=== PATIENT | male | born 1945 | race Caucasian/White ===

== ENCOUNTER 2022-04-14 19:08 | Emergency (ER) | payer OTHER ==
[~2022-04-14] VITALS: Ht 172.7 cm; Wt 81.0 kg
[2022-04-14 20:26] LABS: Basophils # (auto) 0.1 10 ^3/uL (0-0.2); Basophils % (auto) 1.3 % (0.0-2.0); Eosinophils # (auto) 0.2 10 ^3/uL (0-0.8); Eosinophils % (auto) 2.4 % (0.0-7.0); Hematocrit 47.8 % (41.0-53.0); Hemoglobin 16.1 g/dL (13.5-17.5); Lymphocytes # (auto) 0.9 10 ^3/uL (0.4-5.4); Lymphocytes % (auto) 11.6 % (10.0-50.0); Mean Corpuscular Hemoglobin 29.6 pg (28.0-32.0); Mean Corpuscular Hgb Conc. 33.6 g/dL (32.0-36.0); Mean Corpuscular Volume 88.1 fL (80.0-100.0); Monocytes # (auto) 0.6 10 ^3/uL (0-1.3); Monocytes % (auto) 7.6 % (0.0-12.0); Neutrophils # (auto) 5.7 10 ^3/uL (1.6-8.6); Neutrophils % (auto) 77.1 % (37.0-80.0); Nucleated Red Blood Cells % 0.1 %; Red Blood Cells 5.43 10^6/uL (4.5-5.90); Red Cell Distribution Width 14.8 % (11.8-14.3); White Blood Cell 7.4 10^3/uL (4.4-10.8)
[2022-04-14 20:53] LABS: Calcium 8.8 mg/dL (8.5-10.1); Magnesium 2.2 mg/dL (1.6-2.6); Potassium 3.5 mmol/L (3.5-5.1)
[2022-04-14 20:57] LABS: BUN/Creatinine Ratio 10.2; Bilirubin, Total 0.8 mg/dL (0.2-1.0); Total Protein 7.5 g/dL (6.4-8.2)
[2022-04-14] MEDS ORDERED: ASPirin 81 mg TAB PO ONE (23:15)
[2022-04-14] MEDS ORDERED: ONDANSETRON HCL 4 MG/2 ML VIAL IV ONE (23:15)
[2022-04-14] MEDS ORDERED: ACETAMINOPHEN 325 MG TAB PO ONE (23:15)
[2022-04-14 23:38] VITALS: BP 130/92
[2022-04-14 23:52] LABS: Urine Bacteria FEW /hpf (None Seen); Urine Blood Negative /uL (Negative); Urine Specific Gravity 1.008 (1.001-1.035); Urine WBC 1 /hpf (0 - 3)
== END 2022-04-15 01:38 | disposition short-term general hospital (02) ==
LOC: ER 19:08 → EDBD 19:08 → ER 04-15 01:38
DX: R55 Syncope and collapse (principal); R07.89 Other chest pain; I44.0 Atrioventricular block, first degree; I10 Essential (primary) hypertension; Z20.822 Contact with and (suspected) exposure to COVID-19
CPT/HCPCS: 36415; 71045; 80053; 81001; 83735; 83880; 84484; 85025; 85379; 87426; 93005; 96374; 99285; J2405

== ENCOUNTER 2024-05-13 08:56 | Inpatient (IN) | payer OTHER ==
[~2024-05-13] VITALS: Ht 172.7 cm; Wt 76.6 kg
[2024-05-13] VITALS (13 sets, daily range): BP systolic 100–122; BP diastolic 61–73; PULSE 108–118; RESP 18–25; TEMP 79.4–98.7; O2SAT 98–99
--- NOTE | 2024-05-13 09:18 | ED.PDOC ---
History of Present Illness HPI Comments This 78-year-old male presents emergency room after being noted to be anemic on his labs. Labs were drawn yesterday. Patient endorses starting immunotherapy on May 07 for melanoma. On May 10 the patient felt unwell and was transferred to [facility]. He was diagnosed with pneumonia, started on IV antibiotics, and subsequently discharged back to his facility. The general labs S2 which showed that he was anemic. They were concerned and sent him here. Today, he states he feels well. He has no complaints to the headaches and vision changes, chest pain or shortness of breath. Patient, however, states he has become deconditioned and has difficulty walking without assistance. Denies this being a new occurrence. He has no other signs or symptoms. No other palliative or provocative factor. No modifying factors. No radiation of symptoms. Denies pain. Chief Complaint: Abnormal LAB's Time Seen by MD: 09:00 Primary Care Provider: LARRY Allergies: Coded Allergies: Acetaminophen (Verified Allergy, Unknown, 04/15/22) Hydrocodone (Verified Allergy, Unknown, 04/15/22) Mode of Arrival: EMS Past Medical History PAST MEDICAL HISTORY: Cancer Family History Family History: Reviewed,noncontributory to illness Social History Smoker: Non-Smoker Alcohol: Denies ETOH Use Drugs: Denies Drug Use Lives In: Home Constitutional: reports: weakness; denies: chills, diaphoresis, fatigue, fever, malaise, sweats, others EENTM: denies: blurred vision, double vision, ear bleeding, ear discharge, ear drainage, ear pain, ear ringing, eye pain, eye redness, hearing loss, mouth pain, mouth swelling, nasal discharge, nose bleeding, nose congestion, nose pain, photophobia, tearing, throat pain, throat swelling, voice changes, others Respiratory: denies: cough, hemoptysis, orthopnea, SOB at rest, shortness of breath, SOB with excertion, stridor, wheezing, others Cardiovascular: denies: chest pain, dizzy spells, diaphoresis, Dyspnea on exertion, edema, irregular heart beat, left arm pain, lightheadedness, palpitations, PND, syncope, others Gastrointestinal: denies: abdomen distended, abdominal pain, blood streaked bowels, constipated, diarrhea, dysphagia, difficulty swallowing, hematemesis, melena, nausea, poor appetite, poor fluid intake, rectal bleeding, rectal pain, vomiting, others Genitourinary: denies: burning, dysuria, flank pain, frequency, hematuria, incontinence, penile discharge, penile sore, pain, testicle pain, testicle swelling, urgency, others Neurological: denies: dizziness, fainting, headache, numbness, paresthesia, pre-existing deficit, right sided numbness, right sided weakness, seizure, speech problems, tingling, tremors, weakness, others Musculoskeletal: denies: back pain, gout, joint pain, joint swelling, muscle pain, muscle stiffness, neck pain, others Physical Exam General Appearance: No Apparent Distress, Normal HEENT: Normal ENT Inspection, Pharynx Normal, TMs Normal Neck: Full Range of Motion, Normal, Normal Inspection Respiratory: Chest Non-Tender, Lungs Clear, No Accessory Muscle Use, No Respiratory Distress, Normal Breath Sounds Cardiovascular: No Edema, No JVD, No Murmur, No Gallop, Normal Peripheral Pulses, Regular Rate/Rhythm Breast Exam: Deferred Gastrointestinal: No Organomegaly, Non Tender, No Pulsatile Mass, Normal Bowel Sounds, Soft Genitalia: Deferred Pelvic: Deferred Rectal: Deferred Extremities: No calf tenderness, Normal capillary refill, Normal inspection, Normal range of motion, Non-tender, No pedal edema Neurologic: Alert, mail machine operator II-XII nml as Tested, No Motor Deficits, Normal Affect, Normal Mood, No Sensory Deficits Cerebellar Function: Normal Reflexes: NOT DONE Skin: Dry, Normal Color, Warm Lymphatic: NOT DONE Was a procedure done? Was a procedure done?: No Differential Dx Considerations may include: sepsis, pna, pancytopenia, anemia, UTI X-Ray, Labs, Meds, VS Vital Signs Date Time Temp Pulse Resp B/P (MAP) Pulse Ox O2 Delivery O2 Flow Rate FiO2 05/13/24 09:17 117 05/13/24 09:15 118 22 98 Nasal Cannula* 2 28 05/13/24 09:15 118 22 125/61 (82) 98 05/13/24 09:08 115 05/13/24 09:00 98.0 111 25 122/71 (88) 99 Lab Test 05/13/24 10:00 05/13/24 09:35 Range/Units Urine Color Pending Urine Clarity Pending Urine pH Pending Urine Specific [place] Pending Urine Protein Pending Urine Ketones Pending Urine Blood Pending Urine Nitrite Pending Urine Bilirubin Pending Urine Urobilinogen Pending Urine Leukocyte Esterase Pending Urine RBC Pending Urine WBC Pending Urine Squamous Epithelial Cells Pending Urine Bacteria Pending Urine Glucose Pending White Blood Count 2.9 L 4.4-10.8 10^3/uL Red Blood Count 2.34 L 4.5-5.90 10^6/uL Hemoglobin 7.0 *L 13.5-17.5 g/dL Hematocrit 22.7 L 41.0-53.0 % Mean Corpuscular Volume 96.9 80.0-100.0 fL Mean Corpuscular Hemoglobin 29.8 28.0-32.0 pg Mean Corpuscular Hemoglobin Concent 30.8 L 32.0-36.0 g/dL Red Cell Distribution Width 18.1 H 11.8-14.3 % Platelet Count 41 L 140-450 10^3/uL Mean Platelet Volume 8.8 6.9-10.8 fL Neutrophils (%) (Auto) 37.0-80.0 % Lymphocytes (%) (Auto) 10.0-50.0 % Monocytes (%) (Auto) 0.0-12.0 % Basophils (%) (Auto) 0.0-2.0 % Neutrophils # (Auto) 1.6-8.6 10 ^3/uL Lymphocytes # (Auto) 0.4-5.4 10 ^3/uL Monocytes # (Auto) 0-1.3 10 ^3/uL Differential Total Cells Counted Pending Neutrophils % (Manual) Pending Band Neutrophils % (Manual) Pending Lymphocytes % (Manual) Pending Monocytes % (Manual) Pending Eosinophils % (Manual) Pending Basophils % (Manual) Pending Metamyelocytes % (manual) Pending Myelocytes % (Manual) Pending Promyelocytes % (Manual) Pending Blast Cells % (Manual) Pending Reactive Lymphocytes Pending Platelet Estimate Pending Prothrombin Time 11.0 9.3-11.8 sec Prothrombin Time INR 1.04 0.9-1.15 Activated Partial Thromboplast Time 28.0 24.5-34.5 SEC Sodium Level Pending Potassium Level Pending Chloride Level Pending Carbon Dioxide Level Pending Anion Gap Pending Blood Urea Nitrogen Pending Creatinine Pending Glomerular Filtration Rate Calc Pending BUN/Creatinine Ratio Pending Serum Glucose Pending Calcium Level Pending Total Bilirubin Pending Aspartate Amino Transferase (AST) Pending Alanine Aminotransferase (ALT) Pending Alkaline Phosphatase Pending Total Protein Pending Albumin Pending X-Ray, Labs, Meds, VS Comment This 78-year-old male presents to the ER secondary to abnormal labs. Here, he was noted to be pancytopenic with a white count of 2.9, hemoglobin 7, platelet count of 41. He an extra dose completed it shows cardiomegaly, pulmonary vascular congestion, and possible pneumonia. The patient was typed and crossed for 2 units here. He is a [facility] patient. At 10:37 a.m. we reached out to [place]. I spoke with Dr. Root at [facility] at [phone] Time of 1ST Reevaluation: 10:37 Reevaluation 1ST: Unchanged Patient Education/Counseling: Diagnosis, Treatment, Prognosis Family Education/Counseling: No Family Present Sepsis Sepsis Reasesment Focused Exam Sepsis focused exam: focus exam completed Departure 1 Departure Time of Disposition: 10:59 Impression: Primary Impression: Pancytopenia Additional Impression: CHF (congestive heart failure) Disposition: [facility] ([place], [place]) Admit to: Tele Condition: Good Critical Care Note Critical Care Time?: No Stability Stability form required: No Heart Score Heart Score: Heart Score Response (Comments) Value History N/A 0 EKG N/A 0 Age N/A 0 Risk Factors N/A 0 Troponin N/A 0 Total 0 LENA PASTOR May 13, 2024 09:18
[2024-05-13 10:25] LABS: Hematocrit 22.7 % (41.0-53.0); Mean Corpuscular Hemoglobin 29.8 pg (28.0-32.0); Mean Corpuscular Hgb Conc. 30.8 g/dL (32.0-36.0); Mean Corpuscular Volume 96.9 fL (80.0-100.0); Platelet Count (auto) 41 10^3/uL (140-450); Red Blood Cells 2.34 10^6/uL (4.5-5.90); Red Cell Distribution Width 18.1 % (11.8-14.3); White Blood Cell 2.9 10^3/uL (4.4-10.8)
--- NOTE | 2024-05-13 10:26 | DVH ---
EXAM: XY CHEST XRAY 1 VIEW HISTORY: cough COMPARISON: CHEST PORTABLE on DOS: 04/14/22 FINDINGS: LINES AND TUBES: None. CARDIOMEDIASTINAL: The heart is enlarged. The pulmonary vasculature is prominent. Atherosclerotic ca lcification of the aortic arch noted. PULMONARY: Mild interstitial opacities . The bilateral costophrenic angles are clear. There is no p neumothorax. noted bilaterally BONES/SOFT TISSUES: No acute abnormality is noted. IMPRESSION: 1. Moderate cardiomegaly, pulmonary venous congestion and bilateral interstitial opacities may repres ent edema, chronic interstitial lung disease or atypical pneumonia. Recommend clinical and biochemica l correlation.
[2024-05-13 10:31] LABS: Band Neutrophils % (manual) 0; Basophils % (manual) 0 (0.0-2.0); Blast Cells 0; Eosinophils % (manual) 0 (0-7); Metamyelocytes % 0; Monocytes % (manual) 0 (0-12); Myelocytes % 0; Promyelocytes % 0; Reactive Lymphocytes 0
[2024-05-13 10:49] LABS: INR 1.04 (0.9-1.15)
[2024-05-13 10:54] LABS: Alanine Aminotransferase 17 U/L (7-40); Albumin 3.4 g/dL (3.2-4.8); Alkaline Phosphatase 57 U/L (46-116); Anion Gap 9 (5-15); Aspartate Aminotransferase 26 U/L (13-40); BUN/Creatinine Ratio 11.8 (10.0-20.0); Blood Urea Nitrogen 9 mg/dL (9-23); Calcium 8.5 mg/dL (8.7-10.4); Carbon Dioxide 23 mmol/L (20-31); Chloride 106 mmol/L (98-107); Glucose 127 mg/dL (74-106); Potassium 3.4 mmol/L (3.5-5.1); Sodium 138 mmol/L (136-145)
[2024-05-13 10:55] LABS: Bilirubin, Total 2.3 mg/dL (0.2-1.0); Total Protein 5.6 g/dL (5.7-8.2)
[2024-05-13 11:05] LABS: Urine Bacteria FEW /hpf (None Seen); Urine Blood 1+ /uL (Negative); Urine Clarity Clear (Clear); Urine Color Colorless (Yellow); Urine Protein, UAD Negative (Negative); Urine Specific Gravity 1.003 (1.001-1.035); Urine Urobilinogen Normal (Negative); Urine WBC 1 /hpf (0 - 3); Urine pH 6.5 (5.0-9.0)
[2024-05-13] MEDS ORDERED: HYDROcodone-ACET 5/325MG TAB PO PRN (11:45)
[2024-05-13] MEDS ORDERED: FUROSEMIDE 40 MG TAB PO SCH (11:45)
[2024-05-13] MEDS ORDERED: ACETAMINOPHEN 325 MG TAB PO PRN (11:45)
[2024-05-13] MEDS ORDERED: HYDROmorphone HCL 2 MG/ML VL/or syr IV PRN (11:45)
[2024-05-13] MEDS ORDERED: ONDANSETRON HCL 4 MG/2 ML VIAL IV PRN (11:45)
--- NOTE | 2024-05-13 11:56 | DVHHP2 ---
Admitting Diagnosis: Abnormal lab History of Present Illness This 78-year-old male presents emergency room after being noted to be anemic on his labs. Labs were drawn yesterday. Patient endorses starting immunotherapy on May 07 for melanoma. On May 10 the patient felt unwell and was transferred to [facility]. He was diagnosed with pneumonia, started on IV antibiotics, and subsequently discharged back to his facility. The general labs S2 which showed that he was anemic. They were concerned and sent him here. Today, he states he feels well. He has no complaints to the headaches and vision changes, chest pain or shortness of breath. Patient, however, states he has become deconditioned and has difficulty walking without assistance. Denies this being a new occurrence. He has no other signs or symptoms. No other palliative or provocative factor. No modifying factors. No radiation of symptoms. Denies pain. PAST MEDICAL HISTORY: Cancer Family History Family History: Reviewed,noncontributory to illness Social History Smoker: Non-Smoker Alcohol: Denies ETOH Use Drugs: Denies Drug Use Lives In: Home Allergies: Coded Allergies: Acetaminophen (Verified Allergy, Unknown, 04/15/22) Hydrocodone (Verified Allergy, Unknown, 04/15/22) Current Medications Current Medications Medications (Trade) Dose Ordered Sig/Sarah Route PRN Reason Start Time Stop Time Status Last Admin Sodium Chloride (Saline Lock Ns) 10 ml Q8HR IV 05/13/24 14:00 Acetaminophen (Tylenol Tablet) 650 mg Q6HP PRN PO PAIN SCALE 1-3 OR TEMP>100.4 05/13/24 11:45 UNV Acetaminophen/ Hydrocodone Bitart ([place] 5/325MG Tab) 1 tab Q4HP PRN PO MODERATE PAIN (4-6 PAIN SCALE) 05/13/24 11:45 UNV Hydromorphone HCl (Dilaudid Injection) 0.5 mg Q4HP PRN IV SEVERE PAIN (7-10 PAIN SCALE) 05/13/24 11:45 UNV Ondansetron HCl (Zofran) 4 mg Q4HP PRN IV NAUSEA / VOMITING 05/13/24 11:45 Furosemide (Lasix Tablet) 40 mg DAILY PO 05/13/24 11:45 05/13/24 11:58 DC Ferrous Sulfate 325 mg DAILY PO 05/13/24 11:45 Pregabalin (Lyrica Capsule) 50 mg DAILY PO 05/13/24 11:45 Furosemide (Lasix Injection) 40 mg DAILY IV 05/13/24 12:00 Vital Signs Vital Signs Date Time Temp Pulse Resp B/P (MAP) Pulse Ox O2 Delivery O2 Flow Rate FiO2 05/13/24 09:17 117 05/13/24 09:15 22 98 Nasal Cannula* 2 28 05/13/24 09:15 125/61 (82) 05/13/24 09:00 98.0 Physical Exam Generally 78 years old male, well nourished well developed. No apparent di stress HEENT-atraumatic, normocephalic . Erosive lesion melanoma at left frontal forehead Heart-regular rate and rhythm Lungs decreased breath sounds lower lung aguilar Abdomen soft nontender nondistended Musculoskeletal-pedal edema, no cyanosis Neuro-AO x3, no focal deficits Results Labs Test 05/13/24 10:00 05/13/24 09:35 Range/Units Urine Color Colorless Yellow Urine Clarity Clear Clear Urine pH 6.5 5.0-9.0 Urine Specific [place] 1.003 1.001-1.035 Urine Protein Negative Negative Urine Ketones Negative Negative Urine Blood 1+ H Negative /uL Urine Nitrite Negative Negative Urine Bilirubin Negative Negative Urine Urobilinogen Normal Negative mg/dL Urine Leukocyte Esterase 2+ Negative /uL Urine RBC 2 0 - 3 /hpf Urine WBC 1 0 - 3 /hpf Urine Squamous Epithelial Cells None seen <5 /hpf Urine Bacteria Few H None Seen /hpf Urine Glucose Normal Normal mg/dL White Blood Count 2.9 L 4.4-10.8 10^3/uL Red Blood Count 2.34 L 4.5-5.90 10^6/uL Hemoglobin 7.0 *L 13.5-17.5 g/dL Hematocrit 22.7 L 41.0-53.0 % Mean Corpuscular Volume 96.9 80.0-100.0 fL Mean Corpuscular Hemoglobin 29.8 28.0-32.0 pg Mean Corpuscular Hemoglobin Concent 30.8 L 32.0-36.0 g/dL Red Cell Distribution Width 18.1 H 11.8-14.3 % Platelet Count 41 L 140-450 10^3/uL Mean Platelet Volume 8.8 6.9-10.8 fL Neutrophils (%) (Auto) 37.0-80.0 % Lymphocytes (%) (Auto) 10.0-50.0 % Monocytes (%) (Auto) 0.0-12.0 % Basophils (%) (Auto) 0.0-2.0 % Neutrophils # (Auto) 1.6-8.6 10 ^3/uL Lymphocytes # (Auto) 0.4-5.4 10 ^3/uL Monocytes # (Auto) 0-1.3 10 ^3/uL Differential Total Cells Counted 100.0 100 Neutrophils % (Manual) 75 37.0-80.0 Band Neutrophils % (Manual) 0 Lymphocytes % (Manual) 25 10.0-50.0 Monocytes % (Manual) 0 0-12 Eosinophils % (Manual) 0 0-7 Basophils % (Manual) 0 0.0-2.0 Metamyelocytes % (manual) 0 Myelocytes % (Manual) 0 Promyelocytes % (Manual) 0 Blast Cells % (Manual) 0 Reactive Lymphocytes 0 Platelet Estimate Decreased Prothrombin Time 11.0 9.3-11.8 sec Prothrombin Time INR 1.04 0.9-1.15 Activated Partial Thromboplast Time 28.0 24.5-34.5 SEC Sodium Level 138 136-145 mmol/L Potassium Level 3.4 L 3.5-5.1 mmol/L Chloride Level 106 98-107 mmol/L Carbon Dioxide Level 23 20-31 mmol/L Anion Gap 9 5-15 Blood Urea Nitrogen 9 9-23 mg/dL Creatinine 0.76 0.700-1.30 mg/dL Glomerular Filtration Rate Calc 91 >90 mL/min BUN/Creatinine Ratio 11.8 10.0-20.0 Serum Glucose 127 H 74-106 mg/dL Calcium Level 8.5 L 8.7-10.4 mg/dL Total Bilirubin 2.3 H 0.2-1.0 mg/dL Aspartate Amino Transferase (AST) 26 13-40 U/L Alanine Aminotransferase (ALT) 17 7-40 U/L Alkaline Phosphatase 57 46-116 U/L Total Protein 5.6 L 5.7-8.2 g/dL Albumin 3.4 3.2-4.8 g/dL Primary Diagnosis Pancytopenia Melanoma metastatic status post immunotherapy Plan Patient states he was diagnosed with metastatic melanoma. Patient is being treated with the Keytruda patient has been having revision for last few days. Spoke with the patient's primary doctor developed a small patient's current medical status and therapy of transfusing patient. Patient's hemoglobin 7.0 low WBC, and platelets 40s. Patient was recently hospitalized at [facility] and had received a bone marrow biopsy April 28. Results are still pending for possible DS Transfuse hemoglobin 2 units PRBC in ED. Chest x-ray shows vascular congestion. Patient was recently treated for pneumonia at [place]. Check BNP and procalcitonin to evaluate for possible resolution of the pneumonia and possible new onset CHF BNP elevated Check the heart to evaluate for possible systolic heart failure Cardiac diet Full code For DVT prophylaxis PPI for GI prophylax Plan discussed with: Patient Problems List: (1) Pancytopenia Status: Acute Date of Service: May 13, 2024 Billing Provider: MONIKA MONTEMAYOR MD Common Visit Codes: [id number] INP/OBS CARE (HIGH) MONIKA MONTEMAYOR MD May 13, 2024 11:56
[2024-05-13 11:58] LABS: Lymphocytes % (manual) 25 (10.0-50.0); Platelet Estimate Decreased
[2024-05-13] MEDS: LEVOTHYROXINE SODIUM 25 MCG TAB PO SCH (12:39)
[2024-05-13] MEDS: PREGABALIN 25 MG CAP PO SCH (12:39)
[2024-05-13] MEDS: FUROSEMIDE 40 MG/4 ML VIAL IV SCH (12:40)
[2024-05-13] MEDS: SODIUM CHLOR 0.9% PF (SALINE LOCK) 10ML VIAL/SYR IV SCH (13:52)
[2024-05-13] MEDS: FERROUS SULFATE 325mg EC TAB PO SCH (13:52)
--- NOTE | 2024-05-13 18:45 | ECG ---
[facility] Test Date: 2024-05-13 Test Time: 09:05:46 Pat Name: CESILIA CEVALLOS Department: ED Room: 0203 A Gender: M Resident Care Coordinator: RICHARDSON : 1945 Requested By: LENA PASTOR Order Number: [id number] Reading MD: Ameya Gallo Measurements Intervals [place] Rate: 115 P: 41 MI: 175 QRS: -18 QRSD: 83 T: 17 QT: 312 QTc: 432 Interpretive Statements Sinus tachycardia Multiple premature complexes, vent & supraven Borderline left axis deviation RSR' in V1 or V2, probably normal variant Borderline T abnormalities, anterior leads Electronically Signed On 05-14-2024 13:13:36 PDT by Ameya Gallo Please click the below link to view image of tracing.
[2024-05-14] VITALS (8 sets, daily range): BP systolic 109–131; BP diastolic 68–87; PULSE 90–114; RESP 18–20; TEMP 97.7–98.3; O2SAT 92–98
[2024-05-14 06:55] LABS: Alanine Aminotransferase 14 U/L (7-40); Albumin 3.4 g/dL (3.2-4.8); Alkaline Phosphatase 56 U/L (46-116); Anion Gap 8 (5-15); BUN/Creatinine Ratio 18.7 (10.0-20.0); Blood Urea Nitrogen 14 mg/dL (9-23); Calcium 8.5 mg/dL (8.7-10.4); Carbon Dioxide 26 mmol/L (20-31); Chloride 104 mmol/L (98-107); Glucose 95 mg/dL (74-106); Potassium 3.3 mmol/L (3.5-5.1); Sodium 138 mmol/L (136-145)
[2024-05-14 06:56] LABS: Aspartate Aminotransferase 18 U/L (13-40); Bilirubin, Total 4.7 mg/dL (0.2-1.0); Total Protein 5.4 g/dL (5.7-8.2)
[2024-05-14 07:01] LABS: White Blood Cell 3.6 10^3/uL (4.4-10.8)
[2024-05-14 07:03] LABS: Hematocrit 28.4 % (41.0-53.0); Hemoglobin 9.6 g/dL (13.5-17.5); Mean Corpuscular Hgb Conc. 33.7 g/dL (32.0-36.0); Platelet Count (auto) 40 10^3/uL (140-450); Red Blood Cells 3.09 10^6/uL (4.5-5.90); Red Cell Distribution Width 16.7 % (11.8-14.3)
[2024-05-14 07:19] LABS: Basophils % (manual) 0 (0.0-2.0); Blast Cells 0; Eosinophils % (manual) 0 (0-7); Metamyelocytes % 0; Monocytes % (manual) 0 (0-12); Myelocytes % 0; Promyelocytes % 0; Reactive Lymphocytes 0
[2024-05-14 08:47] LABS: Band Neutrophils % (manual) 4; Lymphocytes % (manual) 21 (10.0-50.0); Platelet Estimate Decreased
[2024-05-14] MEDS ORDERED: traMADol HCL 50 MG TAB PO PRN (09:45)
--- NOTE | 2024-05-14 09:58 | DVHDS2 ---
Discharge Summary Date of Admission May 13, 2024 at 11:45 Date of Discharge: May 14, 2024 Labs/Diagnostic Data: Laboratory Results Test 05/14/24 05:28 05/13/24 21:52 05/13/24 10:00 05/13/24 09:35 White Blood Count 3.6 10^3/uL (4.4-10.8) Red Blood Count 3.09 10^6/uL (4.5-5.90) Hemoglobin 9.6 g/dL (13.5-17.5) Hematocrit 28.4 % (41.0-53.0) Mean Corpuscular Volume 92.0 fL (80.0-100.0) Mean Corpuscular Hemoglobin 31.0 pg (28.0-32.0) Mean Corpuscular Hemoglobin Concent 33.7 g/dL (32.0-36.0) Red Cell Distribution Width 16.7 % (11.8-14.3) Platelet Count 40 10^3/uL (140-450) Mean Platelet Volume 9.4 fL (6.9-10.8) Neutrophils (%) (Auto) % (37.0-80.0) Lymphocytes (%) (Auto) % (10.0-50.0) Monocytes (%) (Auto) % (0.0-12.0) Basophils (%) (Auto) % (0.0-2.0) Neutrophils # (Auto) 10 ^3/uL (1.6-8.6) Lymphocytes # (Auto) 10 ^3/uL (0.4-5.4) Monocytes # (Auto) 10 ^3/uL (0-1.3) Differential Total Cells Counted 100.0 (100) Neutrophils % (Manual) 75 (37.0-80.0) Band Neutrophils % (Manual) 4 Lymphocytes % (Manual) 21 (10.0-50.0) Monocytes % (Manual) 0 (0-12) Eosinophils % (Manual) 0 (0-7) Basophils % (Manual) 0 (0.0-2.0) Metamyelocytes % (manual) 0 Myelocytes % (Manual) 0 Promyelocytes % (Manual) 0 Blast Cells % (Manual) 0 Reactive Lymphocytes 0 Platelet Estimate Decreased Sodium Level 138 mmol/L (136-145) Potassium Level 3.3 mmol/L (3.5-5.1) Chloride Level 104 mmol/L (98-107) Carbon Dioxide Level 26 mmol/L (20-31) Anion Gap 8 (5-15) Blood Urea Nitrogen 14 mg/dL (9-23) Creatinine 0.75 mg/dL (0.700-1.30) Glomerular Filtration Rate Calc 92 mL/min (>90) BUN/Creatinine Ratio 18.7 (10.0-20.0) Serum Glucose 95 mg/dL (74-106) Calcium Level 8.5 mg/dL (8.7-10.4) Total Bilirubin 4.7 mg/dL (0.2-1.0) Aspartate Amino Transferase (AST) 18 U/L (13-40) Alanine Aminotransferase (ALT) 14 U/L (7-40) Alkaline Phosphatase 56 U/L (46-116) Total Protein 5.4 g/dL (5.7-8.2) Albumin 3.4 g/dL (3.2-4.8) Free Thyroxine (T4) Calculated 1.16 ng/dL (0.89-1.76) Urine Color Colorless (Yellow) Urine Clarity Clear (Clear) Urine pH 6.5 (5.0-9.0) Urine Specific [place] 1.003 (1.001-1.035) Urine Protein Negative (Negative) Urine Ketones Negative (Negative) Urine Blood 1+ /uL (Negative) Urine Nitrite Negative (Negative) Urine Bilirubin Negative (Negative) Urine Urobilinogen Normal mg/dL (Negative) Urine Leukocyte Esterase 2+ /uL (Negative) Urine RBC 2 /hpf (0 - 3) Urine WBC 1 /hpf (0 - 3) Urine Squamous Epithelial Cells None seen /hpf (<5) Urine Bacteria Few /hpf (None Seen) Urine Glucose Normal mg/dL (Normal) Prothrombin Time 11.0 sec (9.3-11.8) Prothrombin Time INR 1.04 (0.9-1.15) Activated Partial Thromboplast Time 28.0 SEC (24.5-34.5) B-Type Natriuretic Peptide 129.81 pg/mL (0-100) Thyroid Stimulating Hormone (TSH) 3.41 uIU/mL (0.55-4.78) Other Laboratory Tests 05/14/24 05:28 Brief Hx & Hospital Course: see dictated note Condition at Discharge: Fair Final Diagnosis/Problems List melanoma Discharge Disposition: Acute Care Facility Discharge Instruct/Medications Diet: Regular Activity: No Restrictions, As Tolerated Follow Up/Referral: fu with [facility] Medications: per sep Discharge Statement: "Patient was advised to return to the ER or call 911 if any headaches, dizziness, shortness of breath, chest pain, abdominal pain, bleeding, fevers, or worsening of medical condition. Patient was counseled about treatment plan, medications, possible side effects, patientverbalized understanding. All questions were answered to the best of my ability. This discharge took greater then 30 minutes in planning, reviewing documentation, counseling the patient, and discussing with other team members." ASSESSMENT ASSESSMENT Assessment melanoma Date of Service: May 14, 2024 Billing Provider: KOREY MELGOZA MD Common Visit Codes: 63103-GPU/OBS DISCH DAY >30min KOREY MELGOZA MD May 14, 2024 09:58
[2024-05-14] MEDS: CEQUA 0.09% OP SCH (10:00)
[2024-05-14] MEDS: DOCUSATE SOD 100 MG CAP PO SCH (10:00)
[2024-05-14] MEDS: MAGNESIUM OXIDE 400 MG TAB PO SCH (10:11)
[2024-05-14] MEDS: PANTOPRAZOLE 40 MG TAB PO ONE (10:12)
[2024-05-14] MEDS: methylPREDNISolone SOD SUCC 125 MG/2 ML VL IV ONE (10:15)
[2024-05-14] MEDS: SALINE 0.65 % NASAL SPRAY 45ML BOTTLE EACHNOSTRI ONE (10:15)
--- NOTE | 2024-05-14 10:16 | DVHDS ---
DATE OF DISCHARGE: 05/14/2024 HISTORY OF PRESENT ILLNESS: The patient is a 78-year-old gentleman who was admitted after he was noted to be anemic and subsequently has developed nosebleeds. The patient has history of melanoma, likely metastatic, with recent immunotherapy as well as history of sarcoidosis, hypothyroidism, status post thyroidectomy. HOSPITAL COURSE: The patient was anemic with a hemoglobin of 7. The patient was transfused 2 units of blood. The patient is thrombocytopenic, with a platelet count of 40,000. The patient had a chest x-ray that showed moderate cardiomegaly, with pulmonary venous congestion. The patient currently is on oxygen along with mild epistaxis. I did discuss the case with Dr. Fisher, who recommended the patient be started on intravenous Solu-Medrol. The patient will be transferred to [place] for further management. FINAL DIAGNOSES: Therefore, * Severe anemia, status post transfusion. * Thrombocytopenia. * Metastatic melanoma, status post immunotherapy. * Pulmonary sarcoidosis. * Hypothyroidism. * Hypertension. * Acute respiratory failure. Time spent in discharge planning and review of plan with the patient, performance consultant and was 41 minutes. MD DUNCAN Melton/LOURDES TID: [id number] RECEIPT: [id number]
[2024-05-14] MEDS: SALINE 0.65 % NASAL SPRAY 45ML BOTTLE EACHNOSTRI SCH (12:00)
[2024-05-14] MEDS: methylPREDNISolone SOD SUCC 125 MG/2 ML VL IV SCH (15:03)
[2024-05-14] MEDS: OXYMETAZOLINE HCL 0.05 % NASAL SPRAY 15ML EACHNOSTRI ONE (16:34)
[2024-05-14] MEDS: TEMAZEPAM 15 MG CAP PO SCH (21:07)
[2024-05-14] MEDS: OXYMETAZOLINE HCL 0.05 % NASAL SPRAY 15ML EACHNOSTRI SCH (21:07)
[2024-05-15] VITALS (13 sets, daily range): BP systolic 111–130; BP diastolic 65–82; PULSE 97–129; RESP 16–19; TEMP 97.4–98.3; O2SAT 95–99
[2024-05-15] MEDS: PANTOPRAZOLE 40 MG TAB PO SCH (05:27)
[2024-05-15 06:07] LABS: Anion Gap 7 (5-15); Calcium 8.9 mg/dL (8.7-10.4); Carbon Dioxide 23 mmol/L (20-31); Chloride 106 mmol/L (98-107); Potassium 3.8 mmol/L (3.5-5.1); Sodium 136 mmol/L (136-145)
[2024-05-15 06:13] LABS: BUN/Creatinine Ratio 30.1 (10.0-20.0); Blood Urea Nitrogen 22 mg/dL (9-23); Glucose 144 mg/dL (74-106)
--- NOTE | 2024-05-15 07:32 | DVHINCON2 ---
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 Has melanoma of the left presybeterian. Diagnosed in February 2024 at [place]. Took his 1st immunotherapy with Keytruda on April 07, 2024. Was at [facility] with a pneumonia and complications for three weeks and then was sent to the rehab. Now he was admitted with anemia and thrombocytopenia and needed packed red cell transfusion On 05/13/2024 the white count was 2.9 hemoglobin 7 MCV 96.9 platelets [id number] after 2 units of packed red cells hemoglobin came up to 9.6 [place] the [place] [id number] white count was 3.6 He has a total bili of 4.7 AST 18 ALT 54 total protein 5.4 albumin 3.4. Normal renal functions PT INR 1.04 PTT 28 The bleeding. Has some bruising. Patient is jaundiced. He is feeling better since he is in the hospital No headaches nausea vomiting Past Medical History History of Meniere's disease Neuropathy Hyperthyroidism and had thyroidectomy in 1979 and is hypothyroid no Pulmonary sarcoidosis since January 2024 and took prednisone for eight weeks History of colon cancer in 2007 and had surgery was stage II and no adjuvant treatment Family History: Cardiovascular disease G8 MOTHER FHx: emphysema G8 FATHER Family History No malignancies Social History No smoking drinking no drugs Allergies: Coded Allergies: Acetaminophen (Verified Allergy, Unknown, 04/15/22) Hydrocodone (Verified Allergy, Unknown, 04/15/22) Current Medications Current Medications Medications (Trade) Dose Ordered Sig/Sarah Route PRN Reason Start Time Stop Time Status Last Admin Tramadol HCl (Ultram) 50 mg Q6HP PRN PO MODERATE PAIN (4-6 PAIN SCALE) 05/14/24 09:45 Methylprednisolone Sodium Succinate (Solu Medrol) 80 mg Q8HR IV 05/14/24 14:00 05/15/24 05:26 Magnesium Oxide (Mag-Ox Tablet) 400 mg BID PO 05/14/24 10:00 05/14/24 21:07 Pantoprazole Sodium (Protonix Tablet) 40 mg DAILY@0600 PO 05/15/24 06:00 05/15/24 05:27 Sodium Chloride ([place] Nasal [place]) 1 spr QID EACHNOSTRI 05/14/24 12:00 05/15/24 05:27 Temazepam (Restoril) 15 mg HS PO 05/14/24 22:00 05/14/24 21:07 Docusate Sodium (Colace Capsule) 100 mg BID PO 05/14/24 10:00 05/14/24 21:08 Patient Own Medication 1 DAILY OP 05/14/24 10:00 05/14/24 10:00 Oxymetazoline HCl (Afrin) 2 spr BID EACHNOSTRI 05/14/24 22:00 05/14/24 21:07 Vital Signs Vital Signs Date Time Temp Pulse Resp B/P (MAP) Pulse Ox O2 Delivery O2 Flow Rate FiO2 05/15/24 05:00 97.9 98 18 111/65 (80) 96 97.9 05/14/24 20:00 Nasal Cannula* 2 28 Physical Exam Moderately built and nourished, in no acute distress, alert and oriented. jaundice Head and neck: Unremarkable for any masses or neck nodes. The left presybeterian he has a growth (melanoma) measuring around 2-1/2 cm. No ulceration No conjunctival or mucosal hemorrhage Lungs: Clear Cardiovascular: S1-S2 heard well Abdomen: No organomegaly, tenderness or ascites. Bowel sounds are present. Extremities: No clubbing edema cyanosis or calf tenderness. Skin: Unremarkable for petechia purpura ecchymosis Lymphadenopathy: None Neurological exam: No focal deficit Labs/Diagnostic Data Labs Test 05/15/24 04:51 05/14/24 05:28 05/13/24 21:52 05/13/24 10:00 Range/Units Sodium Level 136 136-145 mmol/L Potassium Level 3.8 3.5-5.1 mmol/L Chloride Level 106 98-107 mmol/L Carbon Dioxide Level 23 20-31 mmol/L Anion Gap 7 5-15 Blood Urea Nitrogen 22 9-23 mg/dL Creatinine 0.73 0.700-1.30 mg/dL Glomerular Filtration Rate Calc 93 >90 mL/min BUN/Creatinine Ratio 30.1 H 10.0-20.0 Serum Glucose 144 H 74-106 mg/dL Calcium Level 8.9 8.7-10.4 mg/dL Differential Total Cells Counted 100.0 100 Neutrophils % (Manual) 75 37.0-80.0 Band Neutrophils % (Manual) 4 Lymphocytes % (Manual) 21 10.0-50.0 Monocytes % (Manual) 0 0-12 Eosinophils % (Manual) 0 0-7 Basophils % (Manual) 0 0.0-2.0 Metamyelocytes % (manual) 0 Myelocytes % (Manual) 0 Promyelocytes % (Manual) 0 Blast Cells % (Manual) 0 Reactive Lymphocytes 0 Platelet Estimate Decreased Total Bilirubin 4.7 H 0.2-1.0 mg/dL Aspartate Amino Transferase (AST) 18 13-40 U/L Alanine Aminotransferase (ALT) 14 7-40 U/L Alkaline Phosphatase 56 46-116 U/L Total Protein 5.4 L 5.7-8.2 g/dL Albumin 3.4 3.2-4.8 g/dL Free Thyroxine (T4) Calculated 1.16 0.89-1.76 ng/dL Urine Color Colorless Yellow Urine Clarity Clear Clear Urine pH 6.5 5.0-9.0 Urine Specific [place] 1.003 1.001-1.035 Urine Protein Negative Negative Urine Ketones Negative Negative Urine Blood 1+ H Negative /uL Urine Nitrite Negative Negative Urine Bilirubin Negative Negative Urine Urobilinogen Normal Negative mg/dL Urine Leukocyte Esterase 2+ Negative /uL Urine RBC 2 0 - 3 /hpf Urine WBC 1 0 - 3 /hpf Urine Squamous Epithelial Cells None seen <5 /hpf Urine Bacteria Few H None Seen /hpf Urine Glucose Normal Normal mg/dL Test 05/13/24 09:35 Range/Units Prothrombin Time 11.0 9.3-11.8 sec Prothrombin Time INR 1.04 0.9-1.15 Activated Partial Thromboplast Time 28.0 24.5-34.5 SEC B-Type Natriuretic Peptide 129.81 0-100 pg/mL Thyroid Stimulating Hormone (TSH) 3.41 0.55-4.78 uIU/mL Microbiology Date/Time Source Procedure Growth Status 05/13/24 22:00 Nose MRSA Screen - Final Complete Assessment 1. 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 This could be secondary to ei ther metastatic disease or reaction to Keytruda. He is status post 2 units of packed red cell transfusion. Has been started on Solu-Medrol yesterday 80 mg q.8 hours Patient feeling better 2. History of colon cancer in 1999 [age] and had surgery no adjuvant treatment was stage II 3. Meniere's disease 4. Neuropathy 5. History of thyroidectomy 1984 hypothyroidism and is on thyroid replacement now 6. History of pulmonary sarcoidosis essential oils and 24 Plan/Recommendation Continue the IV Solu-Medrol and follow onto the CBC in the liver functions If the platelets are trending upwards he could be switched to p.o. prednisone 20 mg p.o. t.i.d. to be tapered off as an outpatient and follow up with his oncologist at [place] Patient will need to check with his oncologist about the bilirubin whether it is new or has been there before and then evaluate appropriately Plan discussed with: Patient RITA GARCIA MD May 15, 2024 07:32
[2024-05-15 10:21] LABS: Basophils # (auto) 0 10 ^3/uL (0-0.2); Eosinophils # (auto) 0 10 ^3/uL (0-0.8); Hemoglobin 8.9 g/dL (13.5-17.5); Lymphocytes # (auto) 0.2 10 ^3/uL (0.4-5.4); Monocytes # (auto) 0 10 ^3/uL (0-1.3); Red Blood Cells 2.96 10^6/uL (4.5-5.90)
[2024-05-15 10:23] LABS: Basophils % (auto) 0.3 % (0.0-2.0); Eosinophils % (auto) 0.1 % (0.0-7.0); Hematocrit 27.3 % (41.0-53.0); Lymphocytes % (auto) 9.1 % (10.0-50.0); Mean Corpuscular Hemoglobin 30.2 pg (28.0-32.0); Mean Corpuscular Hgb Conc. 32.7 g/dL (32.0-36.0); Mean Corpuscular Volume 92.2 fL (80.0-100.0); Monocytes % (auto) 1.4 % (0.0-12.0); Neutrophils # (auto) 1.6 10 ^3/uL (1.6-8.6); Neutrophils % (auto) 89.1 % (37.0-80.0); Platelet Count (auto) 38 10^3/uL (140-450); Red Cell Distribution Width 16.4 % (11.8-14.3)
[2024-05-15 10:29] LABS: Nucleated Red Blood Cells % 3.4 %
[2024-05-15 10:31] LABS: White Blood Cell 1.8 10^3/uL (4.4-10.8)
--- NOTE | 2024-05-15 12:10 | DVHPN2 ---
Subjective The patient is seen and examined at bedside. The patient denied any heart palpitation. Patient does have episode of tachycardia no chest pain per patient. Reviewed: Care Plan, H&P, Labs, Medications, Previous Orders, Radiology Changes from previous H/P or p: No Changes Objective Vitals Vital Signs Date Time Temp Pulse Resp B/P (MAP) Pulse Ox O2 Delivery O2 Flow Rate FiO2 05/15/24 08:36 97.7 101 18 112/71 (85) 97 97.7 05/14/24 20:00 Nasal Cannula* 2 28 Intake/Output Intake and Output 05/15/24 07:00 Intake Total 1000 ml Output Total 3100 ml Balance -2100 ml Intake Oral 1000 ml Output Urine Total 3100 ml General Appearance: Alert, Oriented X3, Cooperative, No acute distress HEENT: Atraumatic, PERRLA, EOMI, Mucous membr. moist/pink Neck: Supple Lungs: Clear to auscultation, Normal air movement Cardiovascular: Regular rate, Normal S1, Normal S2, No murmurs, Gallops, Rubs Abdomen: Normal bowel sounds, Soft, No tenderness, No hepatospenomegaly Neuro: Cranial nerves 3-12 NL Psych/Mental Status: Mental status NL Medications Current Medications Medications Dose Ordered Sig/Sarah Route Start Time Stop Time Status Last Admin Dose Admin Sodium Chloride 10 ml Q8HR IV 05/13/24 14:00 05/15/24 05:27 10 ML Hydromorphone HCl 0.5 mg Q4HP PRN IV 05/13/24 11:45 Ondansetron HCl 4 mg Q4HP PRN IV 05/13/24 11:45 Ferrous Sulfate 325 mg DAILY PO 05/13/24 11:45 05/15/24 10:09 325 MG Pregabalin 50 mg DAILY PO 05/13/24 11:45 05/15/24 10:08 50 MG Levothyroxine Sodium 25 mcg QAM PO 05/13/24 12:30 05/15/24 05:44 25 MCG Tramadol HCl 50 mg Q6HP PRN PO 05/14/24 09:45 Methylprednisolone Sodium Succinate 80 mg Q8HR IV 05/14/24 14:00 05/15/24 05:26 80 MG Magnesium Oxide 400 mg BID PO 05/14/24 10:00 05/15/24 10:08 400 MG Pantoprazole Sodium 40 mg DAILY@0600 PO 05/15/24 06:00 05/15/24 05:27 40 MG Sodium Chloride 1 spr QID EACHNOSTRI 05/14/24 12:00 05/15/24 05:27 1 SPR Temazepam 15 mg HS PO 05/14/24 22:00 05/14/24 21:07 15 MG Docusate Sodium 100 mg BID PO 05/14/24 10:00 05/15/24 10:08 100 MG Patient Own Medication 1 DAILY OP 05/14/24 10:00 05/15/24 10:09 1 Oxymetazoline HCl 2 spr BID EACHNOSTRI 05/14/24 22:00 05/14/24 21:07 2 SPR Laboratory Results Laboratory Tests 05/15/24 04:51 05/15/24 09:13 Chemistry Test 05/15/24 04:51 Calcium Level 8.9 mg/dL (8.7-10.4) Urinalysis Test 05/13/24 10:00 Urine Color Colorless (Yellow) Urine Clarity Clear (Clear) Urine pH 6.5 (5.0-9.0) Urine Specific [place] 1.003 (1.001-1.035) Urine Protein Negative (Negative) Urine Ketones Negative (Negative) Urine Blood 1+ /uL (Negative) H Urine Nitrite Negative (Negative) Urine Bilirubin Negative (Negative) Urine Urobilinogen Normal mg/dL (Negative) Urine Leukocyte Esterase 2+ /uL (Negative) Urine RBC 2 /hpf (0 - 3) Urine WBC 1 /hpf (0 - 3) Urine Squamous Epithelial Cells None seen /hpf (<5) Urine Bacteria Few /hpf (None Seen) H Urine Glucose Normal mg/dL (Normal) Microbiology Microbiology Date/Time Source Procedure Growth Status 05/13/24 22:00 Nose MRSA Screen - Final Complete Labs and/or images reviewed: Labs reviewed by me Assessment/Plan Assessment/Plan Melena of left temporal, 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 Tachycardia Nose bleed Continuing current management. We will check stat CBC and BNP. The patient choose to stay in [facility] instead of go to [place]. Heme-Onc consult appreciated. Continuing Afrin for nosebleeds. Patient said he had a lot of bleed through his through from the nose. We will check a stat PT INR PTT. We will give FFP 1 unit and also vitamin K 10 mg x1 doses. We will order 2D echo and cardiology consult for tachycardia. Plan discussed with: Patient Date of Service: May 15, 2024 Billing Provider: CULLEN SOUZA MD Common Visit Codes: [id number] INP/OBS CARE(HIGH) CULLEN SOUZA MD May 15, 2024 12:09
[2024-05-15 17:07] LABS: Hemoglobin 9.6 g/dL (13.5-17.5); Mean Corpuscular Hgb Conc. 32.7 g/dL (32.0-36.0); Mean Corpuscular Volume 92.2 fL (80.0-100.0)
[2024-05-15 17:09] LABS: Hematocrit 29.2 % (41.0-53.0); Mean Corpuscular Hemoglobin 30.2 pg (28.0-32.0); Platelet Count (auto) 46 10^3/uL (140-450); Red Blood Cells 3.17 10^6/uL (4.5-5.90); Red Cell Distribution Width 15.9 % (11.8-14.3); White Blood Cell 2.3 10^3/uL (4.4-10.8)
[2024-05-15 17:21] LABS: Band Neutrophils % (manual) 0; Basophils % (manual) 0 (0.0-2.0); Blast Cells 0; Eosinophils % (manual) 0 (0-7); Metamyelocytes % 0; Monocytes % (manual) 0 (0-12); Myelocytes % 0; Promyelocytes % 0; Reactive Lymphocytes 0
[2024-05-15 17:22] LABS: INR 1.08 (0.9-1.15); Partial Thromboplastin Time 26.4 SEC (24.5-34.5); Prothrombin Time 11.4 sec (9.3-11.8)
[2024-05-15] MEDS: PHYTONADIONE (VIT K)10 MG/ML 1ML VIAL SUBCUT ONE (17:40)
[2024-05-15 18:19] LABS: Lymphocytes % (manual) 10 (10.0-50.0)
[2024-05-15 18:20] LABS: Platelet Estimate Decreased
[2024-05-16] VITALS (8 sets, daily range): BP systolic 111–123; BP diastolic 66–77; PULSE 95–115; RESP 16–19; TEMP 97.4–98.2; O2SAT 95–99
[2024-05-16 07:27] LABS: Basophils # (auto) 0 10 ^3/uL (0-0.2); Basophils % (auto) 0.3 % (0.0-2.0); Eosinophils # (auto) 0 10 ^3/uL (0-0.8); Eosinophils % (auto) 0.1 % (0.0-7.0); Hematocrit 24.1 % (41.0-53.0); Hemoglobin 7.8 g/dL (13.5-17.5); Lymphocytes # (auto) 0.3 10 ^3/uL (0.4-5.4); Lymphocytes % (auto) 13.9 % (10.0-50.0); Mean Corpuscular Hemoglobin 30.2 pg (28.0-32.0); Mean Corpuscular Hgb Conc. 32.2 g/dL (32.0-36.0); Mean Corpuscular Volume 93.8 fL (80.0-100.0); Monocytes # (auto) 0 10 ^3/uL (0-1.3); Neutrophils # (auto) 1.9 10 ^3/uL (1.6-8.6); Neutrophils % (auto) 83.7 % (37.0-80.0); Nucleated Red Blood Cells % 2.9 %; Platelet Count (auto) 36 10^3/uL (140-450); Red Blood Cells 2.57 10^6/uL (4.5-5.90); Red Cell Distribution Width 16.7 % (11.8-14.3); White Blood Cell 2.3 10^3/uL (4.4-10.8)
[2024-05-16 07:36] LABS: Chloride 106 mmol/L (98-107); Potassium 3.9 mmol/L (3.5-5.1); Sodium 137 mmol/L (136-145)
[2024-05-16 07:37] LABS: Anion Gap 8 (5-15); Carbon Dioxide 23 mmol/L (20-31)
[2024-05-16 07:38] LABS: Calcium 8.8 mg/dL (8.7-10.4)
[2024-05-16 07:43] LABS: BUN/Creatinine Ratio 34.4 (10.0-20.0); Blood Urea Nitrogen 22 mg/dL (9-23); Glucose 133 mg/dL (74-106)
[2024-05-16 09:59] LABS: Magnesium 2.3 mg/dL (1.6-2.6)
[2024-05-16 10:00] LABS: Phosphorus 2.8 mg/dL (2.4-5.1)
--- NOTE | 2024-05-16 13:01 | DVHPN2 ---
Subjective The patient is seen and examined at bedside. The patient denied any heart palpitation. Feel better today Reviewed: Care Plan, H&P, Labs, Medications, Previous Orders, Radiology Changes from previous H/P or p: No Changes Objective Vitals Vital Signs Date Time Temp Pulse Resp B/P (MAP) Pulse Ox O2 Delivery O2 Flow Rate FiO2 05/16/24 09:00 97.9 104 17 123/77 (92) 97 97.9 05/16/24 08:00 Nasal Cannula* 2 28 Intake/Output Intake and Output 05/16/24 07:00 Intake Total 976 ml Output Total 2550 ml Balance -1574 ml Intake Oral 325 ml Blood Product 217 ml Other 434 ml Output Urine Total 2550 ml # Bowel Movements 2 General Appearance: Alert, Oriented X3, Cooperative, No acute distress HEENT: Atraumatic, PERRLA, EOMI, Mucous membr. moist/pink Neck: Supple Lungs: Clear to auscultation, Normal air movement Cardiovascular: Regular rate, Normal S1, Normal S2, No murmurs, Gallops, Rubs Abdomen: Normal bowel sounds, Soft, No tenderness, No hepatospenomegaly Neuro: Cranial nerves 3-12 NL Psych/Mental Status: Mental status NL Medications Current Medications Medications Dose Ordered Sig/Sarah Route Start Time Stop Time Status Last Admin Dose Admin Sodium Chloride 10 ml Q8HR IV 05/13/24 14:00 05/16/24 06:00 10 ML Hydromorphone HCl 0.5 mg Q4HP PRN IV 05/13/24 11:45 Ondansetron HCl 4 mg Q4HP PRN IV 05/13/24 11:45 Ferrous Sulfate 325 mg DAILY PO 05/13/24 11:45 05/16/24 10:16 325 MG Pregabalin 50 mg DAILY PO 05/13/24 11:45 05/16/24 10:16 50 MG Levothyroxine Sodium 25 mcg QAM PO 05/13/24 12:30 05/16/24 06:00 25 MCG Tramadol HCl 50 mg Q6HP PRN PO 05/14/24 09:45 Methylprednisolone Sodium Succinate 80 mg Q8HR IV 05/14/24 14:00 05/16/24 05:59 80 MG Magnesium Oxide 400 mg BID PO 05/14/24 10:00 05/16/24 10:16 400 MG Pantoprazole Sodium 40 mg DAILY@0600 PO 05/15/24 06:00 05/16/24 06:00 40 MG Sodium Chloride 1 spr QID EACHNOSTRI 05/14/24 12:00 05/16/24 12:08 1 SPR Temazepam 15 mg HS PO 05/14/24 22:00 05/15/24 22:17 15 MG Docusate Sodium 100 mg BID PO 05/14/24 10:00 05/16/24 10:16 100 MG Patient Own Medication 1 DAILY OP 05/14/24 10:00 05/16/24 10:15 1 Oxymetazoline HCl 2 spr BID EACHNOSTRI 05/14/24 22:00 05/16/24 10:15 2 SPR Laboratory Results Laboratory Tests 05/16/24 06:20 Chemistry Test 05/16/24 06:20 Calcium Level 8.8 mg/dL (8.7-10.4) Magnesium Level 2.3 mg/dL (1.6-2.6) Phosphorus Level 2.8 mg/dL (2.4-5.1) Coagulation Test 05/15/24 16:55 Prothrombin Time 11.4 sec (9.3-11.8) Prothrombin Time INR 1.08 (0.9-1.15) Activated Partial Thromboplast Time 26.4 SEC (24.5-34.5) Cardiac Markers Test 05/16/24 06:20 B-Type Natriuretic Peptide 141.00 pg/mL (0-100) HgA1c, TSH Test 05/16/24 06:20 Hemoglobin A1c 5.6 % A1C (<5.7) Urinalysis Test 05/13/24 10:00 Urine Color Colorless (Yellow) Urine Clarity Clear (Clear) Urine pH 6.5 (5.0-9.0) Urine Specific [place] 1.003 (1.001-1.035) Urine Protein Negative (Negative) Urine Ketones Negative (Negative) Urine Blood 1+ /uL (Negative) H Urine Nitrite Negative (Negative) Urine Bilirubin Negative (Negative) Urine Urobilinogen Normal mg/dL (Negative) Urine Leukocyte Esterase 2+ /uL (Negative) Urine RBC 2 /hpf (0 - 3) Urine WBC 1 /hpf (0 - 3) Urine Squamous Epithelial Cells None seen /hpf (<5) Urine Bacteria Few /hpf (None Seen) H Urine Glucose Normal mg/dL (Normal) Microbiology Microbiology Date/Time Source Procedure Growth Status 05/13/24 22:00 Nose MRSA Screen - Final Complete Labs and/or images reviewed: Labs reviewed by me Assessment/Plan Assessment/Plan Melena of left temporal, 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 Tachycardia Nose bleed Continuing current management. We will check stat CBC and BNP. The patient choose to stay in [facility] instead of go to [place]. Heme-Onc consult appreciated. Continuing Afrin for nosebleeds. Patient no bleed improved today with Afrin and after the vitamin K given yesterday. Continuing to monitor his blood count. Per family the patient does have a bone marrow biopsy at [place]. They will obtain the reports and bring it to us. Plan discussed with: Patient My Orders Orders - CULLEN SOUZA MD Procedure Category Date Status Time Electrocardigram EKG 05/15/24 Logged 15:53 Isolation Order ORDERS 05/15/24 Transmitted 15:53 * Cardiology Consult CONS 05/15/24 Transmitted 15:53 Transfer Orders XFER 05/15/24 Transmitted 15:57 Date of Service: May 16, 2024 Billing Provider: CULLEN SOUZA MD Common Visit Codes: [id number] INP/OBS CARE(HIGH) CULLEN SOUZA MD May 16, 2024 13:00
--- NOTE | 2024-05-16 14:09 | DVHSR ---
APPROVED REPORT EXAM: Two-dimensional and M-mode echocardiogram with Doppler and color Doppler. Blood Pressure: 111/67 mmHg INDICATION lvef DIMENSIONS LVDd3.8 (3.8-5.7cm)LA (2D)4.0 (1.9-4.0cm)Aortic Root3.9 (2.0-3.7cm) LVDs2.8 (2.5-4.0cm)LA (MM) (1.9-4.0cm)Aortic Cusp Exc2.3 (1.5-2.0cm) EF (%) 51.2 (55-70%)Rt. Atrium3.0 (1.9-4.0cm)Asc. Aorta cm IVSd0.9 (0.7-1.1cm)RV (D)3.2 (1.8-2.4cm) PWd1.3 (0.7-1.1cm) Mitral Valve MitralMitral Stenosis E wave0.80m/sMV Mean GR.mmHg A wave0.88m/sMV Peak GR.49mmHg E/A ratio0.92D MVAcm2 DECEL [id number] 1/2 Timems Aortic Valve Aortic ValveAortic Stenosis V11.45m/Wanda Mean GR.7mmHg V22.14m/Wanda Peak GR.18mmHg AI P 1/2 Duek401.33ms Pulmonic Valve V20.94m/s Tricuspid Valve TR Velocity2.35m/s [id number] Other Information Technically limited study due to body habitus. Conclusion Normal left ventricular size and dimension. Normal left ventricular systolic function estimated ejec tion fraction 55%. There is a grade 1 diastolic dysfunction. Normal right ventricular size and dimension. Normal right ventricular systolic function. Normal biatrial size and dimension. The aortic valve is mildly thickened and sclerotic there is mild aortic valve regurgitation Normal mitral valve structure and function. Normal tricuspid valve structure and function. The pulmonary valve is grossly normal. No pericardial effusion.
[2024-05-16] MEDS: METOPROLOL SUCCINATE XL 50 MG TAB PO SCH (14:57)
--- NOTE | 2024-05-16 16:37 | DVHINCON2 ---
Date Seen: May 16, [address] Farah Reason for Consultation History of arrhythmia History of Present Illness Tejinder Burgess is a 78-year-old male patient who presents to ED with chief complaint of no spleen associated with severe anemia which required 1 unit of red blood cell transfusion. Denies fever, chills, chest pain, dyspnea, palpitations, syncope, nausea, vomiting, diarrhea, constipation, recent travel, sick contacts and motor or sensory deficits. Past medical history: History of non affiliated arrhythmia (per patient he had extra beats), metastatic melanoma (left christian primary, metastases and spleen and lung) which was diagnosed in February 2024 and started 1st dose or immunotherapy on April 07, 2024 (Keytruda) per patient after starting immunotherapy he presented hospitalization due to severe pneumonia with requirement of oxygen therapy through nasal cannula, neuropathy, hypothyroidism secondary to thyroidectomy due to hyperthyroidism, pulmonary sarcoidosis, colon cancer with surgical treatment in 2007 Surgical history: Thyroidectomy, colectomy Family history: Mother of VT at age 88 Social history: Lives with in [place]. Denies current tobacco, alcohol and other drug abuse. Allergies: Vicodin, hydrocodone Home medication: Levothyroxine, Lyrica, metoprolol, Cequa, Flonase Patient seen and examined at bedside. Currently has no new complaints Past Medical History Per HPI Past Surgical History Per HPI Family History: Cardiovascular disease G8 MOTHER FHx: emphysema G8 FATHER Family History Per HPI Social History Per HPI Allergies: Coded Allergies: Acetaminophen (Verified Allergy, Unknown, 04/15/22) Hydrocodone (Verified Allergy, Unknown, 04/15/22) Current Medications Current Medications Medications (Trade) Dose Ordered Sig/Saarh Route PRN Reason Start Time Stop Time Status Last Admin Metoprolol Succinate (Toprol Xl) 25 mg DAILY PO 05/16/24 14:30 05/16/24 14:57 Oxymetazoline HCl (Afrin) 2 spr QID EACHNOSTRI 05/16/24 18:00 Review of Systems Per HPI Vital Signs Vital Signs Date Time Temp Pulse Resp B/P (MAP) Pulse Ox O2 Delivery O2 Flow Rate FiO2 05/16/24 14:57 129 120/70 05/16/24 13:00 98.2 18 95 98.2 05/16/24 08:00 Nasal Cannula* 2 28 Physical Exam Patient lying in bed, in no acute distress General: Lucid, afebrile, mucosae are moist. Presented once again nosebleed during examination. Cardiovascular: Normal S1 and S2. No murmurs, gallops or rubs Respiratory: Normal ventilation mechanics. Clear lung sounds on auscultation Abdomen: Soft, nontender, no organomegaly, normal bowel sounds MSK/skin: Mobilizes 4 limbs. Skin is dry and warm. Left temporal dark mass with ulcerations. Neurological: Oriented in 3 spheres. No motor no sensitive deficits. Pupils are isocoric and reactive Labs/Diagnostic Data Labs Test 05/16/24 06:20 05/15/24 16:55 05/15/24 16:34 05/14/24 05:28 Range/Units White Blood Count 2.3 L 4.4-10.8 10^3/uL Red Blood Count 2.57 L 4.5-5.90 10^6/uL Hemoglobin 7.8 #L 13.5-17.5 g/dL Hematocrit 24.1 #L 41.0-53.0 % Mean Corpuscular Volume 93.8 80.0-100.0 fL Mean Corpuscular Hemoglobin 30.2 28.0-32.0 pg Mean Corpuscular Hemoglobin Concent 32.2 32.0-36.0 g/dL Red Cell Distribution Width 16.7 H 11.8-14.3 % Platelet Count 36 L 140-450 10^3/uL Mean Platelet Volume 7.9 6.9-10.8 fL Neutrophils (%) (Auto) 83.7 H 37.0-80.0 % Lymphocytes (%) (Auto) 13.9 10.0-50.0 % Monocytes (%) (Auto) 2.0 0.0-12.0 % Eosinophils (%) (Auto) 0.1 0.0-7.0 % Basophils (%) (Auto) 0.3 0.0-2.0 % Neutrophils # (Auto) 1.9 1.6-8.6 10 ^3/uL Lymphocytes # (Auto) 0.3 L 0.4-5.4 10 ^3/uL Monocytes # (Auto) 0 0-1.3 10 ^3/uL Eosinophils # (Auto) 0 0-0.8 10 ^3/uL Basophils # (Auto) 0 0-0.2 10 ^3/uL Nucleated Red Blood Cells 2.9 % Sodium Level 137 136-145 mmol/L Potassium Level 3.9 3.5-5.1 mmol/L Chloride Level 106 98-107 mmol/L Carbon Dioxide Level 23 20-31 mmol/L Anion Gap 8 5-15 Blood Urea Nitrogen 22 9-23 mg/dL Creatinine 0.64 L 0.700-1.30 mg/dL Glomerular Filtration Rate Calc 96 >90 mL/min BUN/Creatinine Ratio 34.4 H 10.0-20.0 Serum Glucose 133 H 74-106 mg/dL Hemoglobin A1c 5.6 <5.7 % A1C Calcium Level 8.8 8.7-10.4 mg/dL Phosphorus Level 2.8 2.4-5.1 mg/dL Magnesium Level 2.3 1.6-2.6 mg/dL B-Type Natriuretic Peptide 141.00 0-100 pg/mL Prothrombin Time 11.4 9.3-11.8 sec Prothrombin Time INR 1.08 0.9-1.15 Activated Partial Thromboplast Time 26.4 24.5-34.5 SEC Differential Total Cells Counted 100.0 100 Neutrophils % (Manual) 90 H 37.0-80.0 Band Neutrophils % (Manual) 0 Lymphocytes % (Manual) 10 10.0-50.0 Monocytes % (Manual) 0 0-12 Eosinophils % (Manual) 0 0-7 Basophils % (Manual) 0 0.0-2.0 Metamyelocytes % (manual) 0 Myelocytes % (Manual) 0 Promyelocytes % (Manual) 0 Blast Cells % (Manual) 0 Reactive Lymphocytes 0 Platelet Estimate Decreased Total Bilirubin 4.7 H 0.2-1.0 mg/dL Aspartate Amino Transferase (AST) 18 13-40 U/L Alanine Aminotransferase (ALT) 14 7-40 U/L Alkaline Phosphatase 56 46-116 U/L Total Protein 5.4 L 5.7-8.2 g/dL Albumin 3.4 3.2-4.8 g/dL Test 05/13/24 21:52 05/13/24 10:00 05/13/24 09:35 Range/Units Free Thyroxine (T4) Calculated 1.16 0.89-1.76 ng/dL Urine Color Colorless Yellow Urine Clarity Clear Clear Urine pH 6.5 5.0-9.0 Urine Specific [place] 1.003 1.001-1.035 Urine Protein Negative Negative Urine Ketones Negative Negative Urine Blood 1+ H Negative /uL Urine Nitrite Negative Negative Urine Bilirubin Negative Negative Urine Urobilinogen Normal Negative mg/dL Urine Leukocyte Esterase 2+ Negative /uL Urine RBC 2 0 - 3 /hpf Urine WBC 1 0 - 3 /hpf Urine Squamous Epithelial Cells None seen <5 /hpf Urine Bacteria Few H None Seen /hpf Urine Glucose Normal Normal mg/dL Thyroid Stimulating Hormone (TSH) 3.41 0.55-4.78 uIU/mL Microbiology Date/Time Source Procedure Growth Status 05/13/24 22:00 Nose MRSA Screen - Final Complete Assessment Sinus tachycardia probably secondary to anemia versus infection Premature atrial and ventricular complexes on telemetry Severe Anemia requiring transfusion Recent hospitalization due to severe multifocal pneumonia currently still on oxygen requirement Hypothyroidism secondary to thyroidectomy due to hyperthyroidism Pulmonary sarcoidosis Neuropathy History colon cancer status postop Plan/Recommendation Patient has history of arrhythmia most probably secondary to PACs and PVCs. Currently EKG shows sinus tachycardia, which could be secondary to underlying cause (probably secondary to anemia versus infection) Completed echocardiogram: LVEF 55%, grade 1 diastolic dysfunction, aortic valve is mildly thickened and sclerotic with mild valve regurgitation. Rest of echocardiogram within normal limits. Telemetry shows PACs and PVCs. Can continue with metoprolol, not necessary to increase dose, we suggest treating underlying cause which could be anemia versus infection. Discussed case with Dr. Fernandez, patient, family and nurses: Patient is hemodynamically stable, asymptomatic, currently with sinus tachycardia probably secondary to underlying cause (anemia versus infection), completed echocardiogram which was within normal limits. Suggest treating underlying cause of tachycardia. No cardiological intervention needed during this admission. We will sign off from cardiological standpoint of view. Please reconsult if needed, thank you. Plan discussed with: Patient, Spouse, Son, Other (Nurses) Date of Service: May 16, 2024 Billing Provider: ALMA FERNANDEZ MD Cardiology Common Codes: [id number] INP/OBS CARE (High), [id number] CARE 30-74 MIN NORMA LAZARO RESIDENT May 16, 2024 16:37
[2024-05-16] MEDS: OXYMETAZOLINE HCL 0.05 % NASAL SPRAY 15ML EACHNOSTRI SCH (17:52)
[2024-05-17] VITALS (9 sets, daily range): BP systolic 111–135; BP diastolic 69–80; PULSE 86–104; RESP 16–18; TEMP 97.5–98.1; O2SAT 95–99
[2024-05-17 06:28] LABS: Hemoglobin 7.6 g/dL (13.5-17.5)
[2024-05-17 06:32] LABS: Mean Corpuscular Hemoglobin 30.8 pg (28.0-32.0); Mean Corpuscular Volume 93.3 fL (80.0-100.0); Platelet Count (auto) 40 10^3/uL (140-450); Red Blood Cells 2.46 10^6/uL (4.5-5.90); Red Cell Distribution Width 16.2 % (11.8-14.3)
[2024-05-17 06:37] LABS: Calcium 8.6 mg/dL (8.7-10.4); Chloride 106 mmol/L (98-107); Potassium 4.1 mmol/L (3.5-5.1); Sodium 138 mmol/L (136-145)
[2024-05-17 06:38] LABS: Anion Gap 8 (5-15); Carbon Dioxide 24 mmol/L (20-31)
[2024-05-17 06:39] LABS: White Blood Cell 1.3 10^3/uL (4.4-10.8)
[2024-05-17 06:41] LABS: Basophils % (manual) 0 (0.0-2.0); Blast Cells 0; Eosinophils % (manual) 0 (0-7); Metamyelocytes % 0; Myelocytes % 0; Promyelocytes % 0; Reactive Lymphocytes 0
[2024-05-17 06:43] LABS: BUN/Creatinine Ratio 32.8 (10.0-20.0); Blood Urea Nitrogen 22 mg/dL (9-23); Glucose 129 mg/dL (74-106)
[2024-05-17 07:45] LABS: Band Neutrophils % (manual) 3; Lymphocytes % (manual) 17 (10.0-50.0); Monocytes % (manual) 2 (0-12)
[2024-05-17 07:46] LABS: Anisocytosis Slight; Platelet Estimate Decreased
[2024-05-17] MEDS: FLEET ENEMA(ADULT) 135 ML PR ONE (14:32)
[2024-05-18] VITALS (8 sets, daily range): BP systolic 110–134; BP diastolic 68–77; PULSE 88–119; RESP 14–20; TEMP 97.7–98.6; O2SAT 95–98
[2024-05-18 05:27] LABS: Hematocrit 23.8 % (41.0-53.0); Hemoglobin 7.8 g/dL (13.5-17.5); Mean Corpuscular Hemoglobin 30.2 pg (28.0-32.0); Mean Corpuscular Hgb Conc. 32.7 g/dL (32.0-36.0); Mean Corpuscular Volume 92.3 fL (80.0-100.0); Platelet Count (auto) 38 10^3/uL (140-450); Red Blood Cells 2.58 10^6/uL (4.5-5.90); Red Cell Distribution Width 16.2 % (11.8-14.3)
[2024-05-18 05:32] LABS: Chloride 105 mmol/L (98-107); Potassium 4.4 mmol/L (3.5-5.1); Sodium 136 mmol/L (136-145)
[2024-05-18 05:33] LABS: Anion Gap 6 (5-15); Calcium 8.6 mg/dL (8.7-10.4); Carbon Dioxide 25 mmol/L (20-31)
[2024-05-18 05:38] LABS: BUN/Creatinine Ratio 32.9 (10.0-20.0); Blood Urea Nitrogen 23 mg/dL (9-23); Glucose 134 mg/dL (74-106)
[2024-05-18 05:50] LABS: White Blood Cell 1.4 10^3/uL (4.4-10.8)
[2024-05-18 05:52] LABS: Band Neutrophils % (manual) 0; Basophils % (manual) 0 (0.0-2.0); Blast Cells 0; Eosinophils % (manual) 0 (0-7); Metamyelocytes % 0; Monocytes % (manual) 0 (0-12); Myelocytes % 0; Promyelocytes % 0; Reactive Lymphocytes 0
[2024-05-18 08:38] LABS: Lymphocytes % (manual) 23 (10.0-50.0)
[2024-05-18 08:39] LABS: Platelet Estimate Decreased
--- NOTE | 2024-05-18 09:26 | DVHPN2 ---
Subjective The patient is seen and examined at bedside. The patient denied any heart palpitation. The patient asking for Fleet enema. The patient said he has been constipated for couple day. The patient said stool softener does not help him. Reviewed: Care Plan, H&P, Labs, Medications, Previous Orders, Radiology Changes from previous H/P or p: No Changes Objective Vitals Vital Signs Date Time Temp Pulse Resp B/P (MAP) Pulse Ox O2 Delivery O2 Flow Rate FiO2 05/18/24 09:00 98.1 104 14 134/75 (94) 98 98.1 05/17/24 20:00 Nasal Cannula* 2 28 Intake/Output Intake and Output 05/18/24 06:59 Intake Total 1100 ml Output Total 2700 ml Balance -1600 ml Intake Oral 1100 ml Output Urine Total 2700 ml General Appearance: Alert, Oriented X3, Cooperative, No acute distress HEENT: Atraumatic, PERRLA, EOMI, Mucous membr. moist/pink Neck: Supple Lungs: Clear to auscultation, Normal air movement Cardiovascular: Regular rate, Normal S1, Normal S2, No murmurs, Gallops, Rubs Abdomen: Normal bowel sounds, Soft, No tenderness, No hepatospenomegaly Neuro: Cranial nerves 3-12 NL Psych/Mental Status: Mental status NL Medications Current Medications Medications Dose Ordered Sig/Sarah Route Start Time Stop Time Status Last Admin Dose Admin Sodium Chloride 10 ml Q8HR IV 05/13/24 14:00 05/18/24 06:06 10 ML Hydromorphone HCl 0.5 mg Q4HP PRN IV 05/13/24 11:45 Ondansetron HCl 4 mg Q4HP PRN IV 05/13/24 11:45 Ferrous Sulfate 325 mg DAILY PO 05/13/24 11:45 05/17/24 09:48 325 MG Pregabalin 50 mg DAILY PO 05/13/24 11:45 05/17/24 09:49 50 MG Levothyroxine Sodium 25 mcg QAM PO 05/13/24 12:30 05/18/24 05:58 25 MCG Tramadol HCl 50 mg Q6HP PRN PO 05/14/24 09:45 Methylprednisolone Sodium Succinate 80 mg Q8HR IV 05/14/24 14:00 05/18/24 05:58 80 MG Magnesium Oxide 400 mg BID PO 05/14/24 10:00 05/17/24 22:09 400 MG Pantoprazole Sodium 40 mg DAILY@0600 PO 05/15/24 06:00 05/18/24 05:58 40 MG Sodium Chloride 1 spr QID EACHNOSTRI 05/14/24 12:00 05/18/24 06:06 1 SPR Temazepam 15 mg HS PO 05/14/24 22:00 05/17/24 22:09 15 MG Docusate Sodium 100 mg BID PO 05/14/24 10:00 05/17/24 22:09 100 MG Patient Own Medication 1 DAILY OP 05/14/24 10:00 05/17/24 09:51 1 Metoprolol Succinate 25 mg DAILY PO 05/16/24 14:30 05/17/24 09:50 25 MG Oxymetazoline HCl 2 spr QID EACHNOSTRI 05/16/24 18:00 05/18/24 06:06 2 SPR Laboratory Results Laboratory Tests 05/18/24 04:50 Chemistry Test 05/18/24 04:50 Calcium Level 8.6 mg/dL (8.7-10.4) L Urinalysis Test 05/13/24 10:00 Urine Color Colorless (Yellow) Urine Clarity Clear (Clear) Urine pH 6.5 (5.0-9.0) Urine Specific [place] 1.003 (1.001-1.035) Urine Protein Negative (Negative) Urine Ketones Negative (Negative) Urine Blood 1+ /uL (Negative) H Urine Nitrite Negative (Negative) Urine Bilirubin Negative (Negative) Urine Urobilinogen Normal mg/dL (Negative) Urine Leukocyte Esterase 2+ /uL (Negative) Urine RBC 2 /hpf (0 - 3) Urine WBC 1 /hpf (0 - 3) Urine Squamous Epithelial Cells None seen /hpf (<5) Urine Bacteria Few /hpf (None Seen) H Urine Glucose Normal mg/dL (Normal) Microbiology Microbiology Date/Time Source Procedure Growth Status 05/13/24 22:00 Nose MRSA Screen - Final Complete Labs and/or images reviewed: Labs reviewed by me Assessment/Plan Assessment/Plan Melena of left temporal, 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 Tachycardia Nose bleed Constipation Myelodysplastic syndrome Neutropenia Continuing current management. We will check stat CBC and BNP. The patient choose to stay in [facility] instead of go to [place]. Heme-Onc consult appreciated. Continuing Afrin for nosebleeds. Patient nose bleed improved today with Afrin and after the vitamin K given. No nose bleed today. I will give patient one Fleet enema. I reviewed the medical record of bone marrow biopsy from [facility] recently showed myelodysplastic syndrome. Discuss with family regarding to the bone marrow biopsy report. Continuing to monitor. Continuing neutropenic precaution. Plan discussed with: Patient, Spouse Date of Service: May 17, 2024 Billing Provider: CULLEN SOUZA MD Common Visit Codes: [id number] INP/OBS CARE(HIGH) CULLEN SOUZA MD May 18, 2024 09:26
--- NOTE | 2024-05-18 10:19 | DVHPN2 ---
Progress Note Date Seen: May 18, 2024 Medical Necessity Reason Pt with a Central, PICC or Fol: Yes The following are medically ne: Field Catheter Reason for field catheter: Strict I&O Subjective Patient reports: No new complaints Review of Systems: HEENT:Normal, CVS:Normal, RESPIRATORY:Normal, GI:Normal, :Normal, MSK:Normal, NEURO:Normal Objective vital signs Vital Sign Date Time Temp Pulse Resp B/P (MAP) Pulse Ox O2 Delivery O2 Flow Rate FiO2 05/18/24 09:57 104 134/75 05/18/24 09:00 98.1 14 98 98.1 05/17/24 20:00 Nasal Cannula* 2 28 Total Intake and Output 05/17/24 05/17/24 05/18/24 15:00 23:00 07:00 Intake Total 1100 ml Output Total 1200 ml 1500 ml Balance -100 ml -1500 ml medications Current Medications Medications Dose Ordered Sig/Sarah Route Start Time Stop Time Status Last Admin Dose Admin Sodium Chloride 10 ml Q8HR IV 05/13/24 14:00 05/18/24 06:06 10 ML Hydromorphone HCl 0.5 mg Q4HP PRN IV 05/13/24 11:45 Ondansetron HCl 4 mg Q4HP PRN IV 05/13/24 11:45 Ferrous Sulfate 325 mg DAILY PO 05/13/24 11:45 05/18/24 09:56 325 MG Pregabalin 50 mg DAILY PO 05/13/24 11:45 05/18/24 09:56 50 MG Levothyroxine Sodium 25 mcg QAM PO 05/13/24 12:30 05/18/24 05:58 25 MCG Tramadol HCl 50 mg Q6HP PRN PO 05/14/24 09:45 Methylprednisolone Sodium Succinate 80 mg Q8HR IV 05/14/24 14:00 05/18/24 05:58 80 MG Magnesium Oxide 400 mg BID PO 05/14/24 10:00 05/18/24 09:56 400 MG Pantoprazole Sodium 40 mg DAILY@0600 PO 05/15/24 06:00 05/18/24 05:58 40 MG Sodium Chloride 1 spr QID EACHNOSTRI 05/14/24 12:00 05/18/24 06:06 1 SPR Temazepam 15 mg HS PO 05/14/24 22:00 05/17/24 22:09 15 MG Docusate Sodium 100 mg BID PO 05/14/24 10:00 05/18/24 09:56 100 MG Patient Own Medication 1 DAILY OP 05/14/24 10:00 05/18/24 09:59 1 Metoprolol Succinate 25 mg DAILY PO 05/16/24 14:30 05/18/24 09:57 25 MG Oxymetazoline HCl 2 spr QID EACHNOSTRI 05/16/24 18:00 05/18/24 06:06 2 SPR Examination: GENERAL:Normal, HEENT:Normal, NECK:Normal, LUNGS:Normal, LUNGS:Abnormal (on oxygen), CVS:Normal, ABDOMEN:Normal, MSK:Normal, SKIN:Normal, NEURO:Normal, :Normal laboratory and microbiology Laboratory Tests 05/18/24 04:50 Test 05/18/24 04:50 Range/Units Serum Glucose 134 H 74-106 mg/dL Microbiology Date/Time Source Procedure Growth Status 05/13/24 22:00 Nose MRSA Screen - Final Complete Problem List/Assessment/Plan Problem List/Assessment/Plan * Severe anemia, status post transfusion. * Thrombocytopenia: change to prednisone * Metastatic melanoma, status post immunotherapy. * Pulmonary sarcoidosis. * Hypothyroidism. * Hypertension. * Acute respiratory failure * leukopenia: neupogen advance care planning- full code- time spent 21 mins Plan discussed with: Patient Date of Service: May 18, 2024 Billing Provider: KOREY MELGOZA MD Common Visit Codes: [id number] INP/OBS CARE(HIGH) Secondary Visit Codes: [id number] CARE PLAN 30 MINUTES CC Plasma Assessment Blood Product Administration S: [id number] KOREY MELGOZA MD May 18, 2024 10:19
[2024-05-18] MEDS: FILGRASTIM(TBO) 480 MCG/0.8 ML SYRG SC ONE (11:11)
[2024-05-18] MEDS: ACETAMINOPHEN 500 MG TAB PO PRN (21:52)
[2024-05-18] MEDS: predniSONE 20 MG TAB PO SCH (22:00)
[2024-05-19 01:00] VITALS: BP 109/67; PULSE 91; RESP 18; TEMP 97.6; O2SAT 92
[2024-05-19 05:00] VITALS: BP 109/70; PULSE 91; RESP 20; TEMP 97.8; O2SAT 96
[2024-05-19 07:07] LABS: Chloride 104 mmol/L (98-107); Sodium 137 mmol/L (136-145)
[2024-05-19 07:08] LABS: Anion Gap 9 (5-15); Calcium 8.5 mg/dL (8.7-10.4); Carbon Dioxide 24 mmol/L (20-31)
[2024-05-19 07:13] LABS: BUN/Creatinine Ratio 38.6 (10.0-20.0); Blood Urea Nitrogen 32 mg/dL (9-23); Glucose 77 mg/dL (74-106)
[2024-05-19 08:00] VITALS: PULSE 105; PULSE 98; RESP 18; O2SAT 94
[2024-05-19 09:00] VITALS: BP 124/72; PULSE 105; RESP 18; TEMP 97.5; O2SAT 94
[2024-05-19 09:15] LABS: Hemoglobin 8.4 g/dL (13.5-17.5); Mean Corpuscular Volume 93.8 fL (80.0-100.0)
[2024-05-19 09:17] LABS: Hematocrit 27.4 % (41.0-53.0); Mean Corpuscular Hemoglobin 28.8 pg (28.0-32.0); Mean Corpuscular Hgb Conc. 30.7 g/dL (32.0-36.0); Red Blood Cells 2.92 10^6/uL (4.5-5.90); Red Cell Distribution Width 16.2 % (11.8-14.3)
[2024-05-19 09:33] LABS: White Blood Cell 34.3 10^3/uL (4.4-10.8)
[2024-05-19 09:34] LABS: Platelet Count (auto) 49 10^3/uL (140-450)
[2024-05-19 09:35] LABS: Basophils % (manual) 0 (0.0-2.0); Blast Cells 0; Eosinophils % (manual) 0 (0-7); Metamyelocytes % 0; Monocytes % (manual) 0 (0-12); Myelocytes % 0; Promyelocytes % 0; Reactive Lymphocytes 0
--- NOTE | 2024-05-19 09:50 | DVHDS2 ---
Discharge Summary Date of Admission May 13, 2024 at 11:45 Date of Discharge: May 19, 2024 Labs/Diagnostic Data: Laboratory Results Test 05/19/24 09:05 05/19/24 06:14 05/17/24 05:03 05/16/24 06:20 White Blood Count 34.3 10^3/uL (4.4-10.8) Red Blood Count 2.92 10^6/uL (4.5-5.90) Hemoglobin 8.4 g/dL (13.5-17.5) Hematocrit 27.4 % (41.0-53.0) Mean Corpuscular Volume 93.8 fL (80.0-100.0) Mean Corpuscular Hemoglobin 28.8 pg (28.0-32.0) Mean Corpuscular Hemoglobin Concent 30.7 g/dL (32.0-36.0) Red Cell Distribution Width 16.2 % (11.8-14.3) Platelet Count 49 10^3/uL (140-450) Mean Platelet Volume 9.1 fL (6.9-10.8) Neutrophils (%) (Auto) % (37.0-80.0) Lymphocytes (%) (Auto) % (10.0-50.0) Monocytes (%) (Auto) % (0.0-12.0) Basophils (%) (Auto) % (0.0-2.0) Neutrophils # (Auto) 10 ^3/uL (1.6-8.6) Lymphocytes # (Auto) 10 ^3/uL (0.4-5.4) Monocytes # (Auto) 10 ^3/uL (0-1.3) Sodium Level 137 mmol/L (136-145) Potassium Level 4.0 mmol/L (3.5-5.1) Chloride Level 104 mmol/L (98-107) Carbon Dioxide Level 24 mmol/L (20-31) Anion Gap 9 (5-15) Blood Urea Nitrogen 32 mg/dL (9-23) Creatinine 0.83 mg/dL (0.700-1.30) Glomerular Filtration Rate Calc 89 mL/min (>90) BUN/Creatinine Ratio 38.6 (10.0-20.0) Serum Glucose 77 mg/dL (74-106) Calcium Level 8.5 mg/dL (8.7-10.4) Nucleated Red Blood Cells % Anisocytosis (manual) Slight Eosinophils (%) (Auto) 0.1 % (0.0-7.0) Eosinophils # (Auto) 0 10 ^3/uL (0-0.8) Basophils # (Auto) 0 10 ^3/uL (0-0.2) Hemoglobin A1c 5.6 % A1C (<5.7) Phosphorus Level 2.8 mg/dL (2.4-5.1) Magnesium Level 2.3 mg/dL (1.6-2.6) B-Type Natriuretic Peptide 141.00 pg/mL (0-100) Vitamin B12 Level 1148 pg/mL (211-911) Vitamin D 25-Hydroxy 40.2 ng/mL (30.0-100) Test 05/15/24 16:55 05/14/24 05:28 05/13/24 21:52 05/13/24 10:00 Prothrombin Time 11.4 sec (9.3-11.8) Prothrombin Time INR 1.08 (0.9-1.15) Activated Partial Thromboplast Time 26.4 SEC (24.5-34.5) Total Bilirubin 4.7 mg/dL (0.2-1.0) Aspartate Amino Transferase (AST) 18 U/L (13-40) Alanine Aminotransferase (ALT) 14 U/L (7-40) Alkaline Phosphatase 56 U/L (46-116) Total Protein 5.4 g/dL (5.7-8.2) Albumin 3.4 g/dL (3.2-4.8) Free Thyroxine (T4) Calculated 1.16 ng/dL (0.89-1.76) Urine Color Colorless (Yellow) Urine Clarity Clear (Clear) Urine pH 6.5 (5.0-9.0) Urine Specific [place] 1.003 (1.001-1.035) Urine Protein Negative (Negative) Urine Ketones Negative (Negative) Urine Blood 1+ /uL (Negative) Urine Nitrite Negative (Negative) Urine Bilirubin Negative (Negative) Urine Urobilinogen Normal mg/dL (Negative) Urine Leukocyte Esterase 2+ /uL (Negative) Urine RBC 2 /hpf (0 - 3) Urine WBC 1 /hpf (0 - 3) Urine Squamous Epithelial Cells None seen /hpf (<5) Urine Bacteria Few /hpf (None Seen) Urine Glucose Normal mg/dL (Normal) Test 05/13/24 09:35 Thyroid Stimulating Hormone (TSH) 3.41 uIU/mL (0.55-4.78) Other Laboratory Tests 05/19/24 09:05 05/19/24 06:14 Brief Hx & Hospital Course: SEE DICTATED NOTE Condition at Discharge: Fair Final Diagnosis/Problems List melanoma Discharge Disposition: Long-Term Facility Discharge Instruct/Medications Diet: Regular Activity: No Restrictions, As Tolerated Follow Up/Referral: fu with romney Medications: per sep Discharge Statement: "Patient was advised to return to the ER or call 911 if any headaches, dizziness, shortness of breath, chest pain, abdominal pain, bleeding, fevers, or worsening of medical condition. Patient was counseled about treatment plan, medications, possible side effects, patientverbalized understanding. All questions were answered to the best of my ability. This discharge took greater then 30 minutes in planning, reviewing documentation, counseling the patient, and discussing with other team members." ASSESSMENT ASSESSMENT Assessment melanoma Date of Service: May 19, 2024 Billing Provider: KOERY MELGOZA MD Common Visit Codes: [id number] DISCH DAY >30min KOREY MELGOZA MD May 19, 2024 09:50
[2024-05-19] MEDS ORDERED: FILGRASTIM(TBO) 480 MCG/0.8 ML SYRG SC SCH (10:00)
[2024-05-19 11:00] LABS: Band Neutrophils % (manual) 7; Lymphocytes % (manual) 13 (10.0-50.0)
[2024-05-19 11:01] LABS: Platelet Estimate Decreased
[2024-05-19 12:54] VITALS: BP 124/72; PULSE 105; RESP 18; TEMP 97.5; O2SAT 94
[2024-05-19 13:00] VITALS: BP 125/74; PULSE 102; RESP 19; TEMP 98; O2SAT 96
== END 2024-05-19 16:30 | disposition home or self-care (01) | DRG 808 ==
LOC: ER 08:56 → EDBD 08:56 → EDUNIT# 08:56 → OVERFLOW 11:45 → CENTRAL 15:04 → TELE-CENTR 05-16 00:06
PROVIDERS: ADMIT Internal Medicine; ATTEND Internal Medicine
PROC: 30233N1 Transfusion of Nonautologous Red Blood Cells into Peripheral Vein, Percutaneous Approach (ICD-10-PCS; 2024-05-13)
PROC: 30233K1 Transfusion of Nonautologous Frozen Plasma into Peripheral Vein, Percutaneous Approach (ICD-10-PCS; principal; 2024-05-15)
DX: D61.810 Antineoplastic chemotherapy induced pancytopenia (principal); J96.00 Acute respiratory failure, unspecified whether with hypoxia or hypercapnia; R17 Unspecified jaundice; C78.00 Secondary malignant neoplasm of unspecified lung; C43.39 Malignant melanoma of other parts of face; D46.9 Myelodysplastic syndrome, unspecified; D86.0 Sarcoidosis of lung; R04.0 Epistaxis; H81.09 Meniere's disease, unspecified ear; G62.9 Polyneuropathy, unspecified; I49.3 Ventricular premature depolarization; K59.00 Constipation, unspecified; E03.9 Hypothyroidism, unspecified; I50.9 Heart failure, unspecified; I11.0 Hypertensive heart disease with heart failure; Z88.6 Allergy status to analgesic agent; Z88.5 Allergy status to narcotic agent; Z85.820 Personal history of malignant melanoma of skin; Z82.5 Family history of asthma and other chronic lower respiratory diseases; Z82.49 Family history of ischemic heart disease and other diseases of the circulatory system; Z85.038 Personal history of other malignant neoplasm of large intestine; T45.AX5A Adverse effect of immune checkpoint inhibitors and immunostimulant drugs, initial encounter
CPT/HCPCS: 36415; 71045; 80048; 80053; 81001; 82306; 82607; 83036; 83735; 83880; 84100; 84132; 84439; 84443; 85007; 85025; 85027; 85610; 85730; 86850; 86900; 86901; 86920; 87081; 93005; 93306; 96374; 97110; 97116; 97163; 97530; G0378; J1447; J3430

== ENCOUNTER 2024-05-23 00:12 | Emergency (ER) | payer OTHER ==
[~2024-05-23] VITALS: Ht 243.8 cm; Wt 74.0 kg
--- NOTE | 2024-05-23 01:30 | ED.PDOC ---
Epistaxis- HPI HPI Comments 78-year-old male who came to ER due to nose bleeding. [facility], admits that he has been manually picking his right nostril causing it to bleed. Denies taking any blood thinners. He does have history of anemia. Patient coming in wanting to pack and go back to his skilled facility. VSS at arrival. Pt. utilizes supplemental oxygen at home. Pt. arrives on 3L. Chief Complaint: Nose Bleed Time Seen by MD: 01:30 Primary Care Provider: LARRY Reviewed Notes: Nurses Notes, Quantitative Software Engineer Notes Allergies: Coded Allergies: Hydrocodone (Verified Allergy, Unknown, 04/15/22) Home Meds No Active Prescriptions or Reported Meds Information Source: Patient, Emergency Med Personnel Mode of Arrival: Ambulatory Severity: Streaking Timing: Hours Duration: Since onset Prehospital treatment: None Location: Right naris Mechanism: Spontaneous onset, Nose picking History of: Nasal bleeding Nose: Intranasal/Septum: Blood Bleeding Status: Active bleeding Source: Right Associated signs and symptoms: Sinusitis Past Medical History PAST MEDICAL HISTORY: Anemia Past Medical History (Other): Hx of nose bleeds Surgical History: Denies all surgeries Family History Family History: Reviewed,noncontributory to illness Social History Smoker: Non-Smoker Alcohol: Denies ETOH Use Drugs: Denies Drug Use Lives In: Care Home Constitutional: denies: chills, diaphoresis, fatigue, fever, malaise, sweats, weakness, others EENTM: reports: nose bleeding (Right nostril); denies: blurred vision, double vision, ear bleeding, ear discharge, ear drainage, ear pain, ear ringing, eye pain, eye redness, hearing loss, mouth pain, mouth swelling, nasal discharge, nose congestion, nose pain, photophobia, tearing, throat pain, throat swelling, voice changes, others Respiratory: denies: cough, hemoptysis, orthopnea, SOB at rest, shortness of breath, SOB with excertion, stridor, wheezing, others Cardiovascular: denies: chest pain, dizzy spells, diaphoresis, Dyspnea on exertion, edema, irregular heart beat, left arm pain, lightheadedness, palpitations, PND, syncope, others Gastrointestinal: denies: abdomen distended, abdominal pain, blood streaked bowels, constipated, diarrhea, dysphagia, difficulty swallowing, hematemesis, melena, nausea, poor appetite, poor fluid intake, rectal bleeding, rectal pain, vomiting, others Genitourinary: denies: burning, dysuria, flank pain, frequency, hematuria, incontinence, penile discharge, penile sore, pain, testicle pain, testicle swelling, urgency, others Neurological: denies: dizziness, fainting, headache, left sided numbness, left sided weakness, numbness, paresthesia, pre-existing deficit, right sided numbness, right sided weakness, seizure, speech problems, tingling, tremors, weakness, others Musculoskeletal: denies: back pain, gout, joint pain, joint swelling, muscle pain, muscle stiffness, neck pain, others Integumetry: denies: bruises, change in color, change in hair/nails, dryness, laceration, lesions, lumps, rash, wounds, others Allergic/Immunocompromised: denies: Difficulty Healing, Frequent Infections, Hives, Itching, others Hematologic/Lymphatic: denies: anemia, blood clots, easy bleeding, easy bruising, swollen glands, others Endocrine: denies: excessive hunger, excessive sweating, excessive thirst, excessive urination, flushing, intolerance to cold, intolerance to heat, unex plained weight gain, unexplained weight loss, others Psychiatric: denies: anxiety, bipolar disorder, depression, hopeless, panic disorder, schizophrenia, sleepless, suicidal, others Physical Exam General Appearance: Mild Distress (due to epistaxis event.), Normal HEENT: Pharynx Normal, TMs Normal, Other (Minimal bleeding right nostril. No signs of trauma.) Neck: Full Range of Motion, Non-Tender, Normal, Normal Inspection Respiratory: Chest Non-Tender, Lungs Clear, No Accessory Muscle Use, No Respiratory Distress, Normal Breath Sounds Cardiovascular: No Edema, No JVD, No Murmur, No Gallop, Normal Peripheral Pulses, Regular Rate/Rhythm Breast Exam: Deferred Gastrointestinal: No Organomegaly, Non Tender, No Pulsatile Mass, Normal Bowel Sounds, Soft Genitalia: Deferred Pelvic: Deferred Rectal: Deferred Extremities: No calf tenderness, Normal capillary refill, Normal inspection, Normal range of motion, Non-tender, No pedal edema Musculoskeletal : Apperance: Normal Neurologic: Alert, jde developer II-XII nml as Tested, No Motor Deficits, Normal Affect, Normal Mood, No Sensory Deficits Cerebellar Function: Normal Reflexes: Normal Skin: Dry, Normal Color, Warm Lymphatic: No Adenopathy Was a procedure done? Was a procedure done?: Yes Sedation Sedation?: No Nasal Cautery and Pack Indicaton: Anterior epitaxis Silver nitrate: Right Hemostasis: Was obtained Location of packing: Right Packing: Other (Rhino rocket) Informed consent obtained: Yes Risks/benefits/alt described: Yes Differential Diagnosis (NSB) Differential Diagnosis: Anterior Nasal Bleed, Posterior Nasal Bleed X-Ray, Labs, Meds, VS Vital Signs Date Time Temp Pulse Resp B/P (MAP) Pulse Ox O2 Delivery O2 Flow Rate FiO2 05/23/24 01:11 110 20 110/69 (83) 97 05/23/24 00:50 Nasal Cannula* 3 32 X-Ray, Labs, Meds, VS Comment Pt. tolerated installation of Rhino rocket well. Pt. will be sent back to facility and advise to f/u with PMD for removal of packing in 1-2 days. Time of 1ST Reevaluation: 02:07 Reevaluation 1ST: Improved Consultation: PCP Patient Education/Counseling: Diagnosis, Treatment Family Education/Counseling: Diagnosis, Treatment, No Family Present Departure 1 Departure Time of Disposition: 02:07 Impression: Primary Impression: Epistaxis due to trauma Additional Impression: Encounter for wound care Disposition: 03 HALF-WAY FACILITY Condition: Stable e-Prescriptions No Active Prescriptions or Reported Meds Discharged With: Self, Spouse Critical Care Note Critical Care Time?: No Stability Stability form required: No Heart Score Heart Score: Heart Score Response (Comments) Value History N/A 0 EKG N/A 0 Age N/A 0 Risk Factors N/A 0 Troponin N/A 0 Total 0 I personally scribed for CALLUM MOREJON PAC ([email or web address]) on 05/23/24 at 01:30. Electronically submitted by Cornelio Dozier ([email or web address]). CALLUM MOREJON PAC May 23, 2024 01:30
[2024-05-23 03:00] VITALS: BP 104/69; PULSE 106; RESP 18; O2SAT 97
== END 2024-05-23 03:12 ==
LOC: ER 00:12 → EDBD 00:12 → ER 03:12
DX: R04.0 Epistaxis (principal); Z86.2 Personal history of diseases of the blood and blood-forming organs and certain disorders involving the immune mechanism; Z88.5 Allergy status to narcotic agent
CPT/HCPCS: 30901

== ENCOUNTER 2024-05-24 11:54 | Inpatient (IN) | payer OTHER ==
[~2024-05-24] VITALS: Ht 175.3 cm; Wt 76.7 kg
[2024-05-24 12:00] VITALS: PULSE 116; RESP 34; O2SAT 89
--- NOTE | 2024-05-24 12:10 | ED.PDOC ---
Epistaxis- HPI HPI Comments 78y M who presents to the ED via EMS for chief complaint of nose bleed. EMS states pt is resident at [facility], and states pt has been having nose bleeding in R nare since earlier this AM and continued to have bleeding and called EMS to the scene. Pt states he was at on Saturday, 2 days prior for the nose bleed in R nare and had rhino rocket placed and discharged. Pt in the ED, has noted bleeding around R nare but has noted rhino rocket still in place.Pt states he is not currently not on any blood thinners at this time. Pt states he does have history of melanoma and states he is receiving chemo currently. Pt states these nose bleeding problems started in Mar 2024 when he started re ceiving chemo for his melanoma at [facility]. Pt otherwise denies any associated head injury or noted loss of consciousness. Pt is alert and oriented x 4 and able to answer all questions. Pt denies headache, dizziness, nausea, vomiting, diarrhea, fever, cough, chills, chest pain or shortness of breath. Pt otherwise denies any other symptoms at this time. Chief Complaint: Nose Bleed Time Seen by MD: 12:04 Primary Care Provider: LARRY Reviewed Notes: Medications, Allergies Allergies: Coded Allergies: Hydrocodone (Verified Allergy, Unknown, 04/15/22) Home Meds No Active Prescriptions or Reported Meds Information Source: Patient, Emergency Med Personnel, Spouse Mode of Arrival: EMS Brought in by: EMS Severity: Bleeding Uncontrolled Timing: Minutes, Hours Duration: Since onset Prehospital treatment: None Location: Right naris Mechanism: Spontaneous onset Circumstances: Unknown Use of: None History of: None Last Tetanus: Unknown Nose: Normal Nose: Intranasal/Septum: Blood Bleeding Status: No active bleeding Bleeding Amount: Mild Source: Right Associated signs and symptoms: None Past Medical History PAST MEDICAL HISTORY: Anemia, Cancer Surgical History (Other): colon cancer and skin cancer surgery Family History Family History: Reviewed,noncontributory to illness Social History Smoker: Non-Smoker Alcohol: Denies ETOH Use Drugs: Denies Drug Use Lives In: Group Home Constitutional: denies: chills, diaphoresis, fatigue, fever, malaise, sweats, weakness, others EENTM: reports: nose bleeding; denies: blurred vision, double vision, ear bleeding, ear discharge, ear drainage, ear pain, ear ringing, eye pain, eye redness, hearing loss, mouth pain, mouth swelling, nasal discharge, nose congestion, nose pain, photophobia, tearing, throat pain, throat swelling, voice changes, others Respiratory: denies: cough, hemoptysis, orthopnea, SOB at rest, shortness of breath, SOB with excertion, stridor, wheezing, others Cardiovascular: denies: chest pain, dizzy spells, diaphoresis, Dyspnea on exertion, edema, irregular heart beat, left arm pain, lightheadedness, palpit ations, PND, syncope, others Gastrointestinal: denies: abdomen distended, abdominal pain, blood streaked b owels, constipated, diarrhea, dysphagia, difficulty swallowing, hematemesis, melena, nausea, poor appetite, poor fluid intake, rectal bleeding, rectal pain, vomiting, others Genitourinary: denies: burning, dysuria, flank pain, frequency, hematuria, incontinence, penile discharge, penile sore, pain, testicle pain, testicle swelling, urgency, others Neurological: denies: dizziness, fainting, headache, left sided numbness, left sided weakness, numbness, paresthesia, pre-existing deficit, right sided numbness, right sided weakness, seizure, speech problems, tingling, tremors, weakness, others Musculoskeletal: denies: back pain, gout, joint pain, joint swelling, muscle pain, muscle stiffness, neck pain, others Integumetry: denies: bruises, change in color, change in hair/nails, dryness, laceration, lesions, lumps, rash, wounds, others Allergic/Immunocompromised: denies: Difficulty Healing, Frequent Infections, Hives, Itching, others Hematologic/Lymphatic: denies: anemia, blood clots, easy bleeding, easy bruisi ng, swollen glands, others Endocrine: denies: excessive hunger, excessive sweating, excessive thirst, exce ssive urination, flushing, intolerance to cold, intolerance to heat, unexplained weight gain, unexplained weight loss, others Psychiatric: denies: anxiety, bipolar disorder, depression, hopeless, panic disorder, schizophrenia, sleepless, suicidal, others All Other Systems: Reviewed and Negative Physical Exam General Appearance: Mild Distress HEENT: Pale Conjuntivae (L), Pale Conjuntivae (R), Pharynx Normal, TMs Normal, Other (Packing to the right nasal area) Neck: Full Range of Motion, Non-Tender, Normal, Normal Inspection Respiratory: Chest Non-Tender, Lungs Clear, No Accessory Muscle Use, No Respiratory Distress, Normal Breath Sounds Cardiovascular: No Edema, No JVD, No Murmur, No Gallop, Normal Peripheral Pulses, Regular Rate/Rhythm Breast Exam: Deferred Gastrointestinal: No Organomegaly, Non Tender, No Pulsatile Mass, Normal Bowel Sounds, Soft Genitalia: Deferred Pelvic: Deferred Rectal: Deferred Extremities: No calf tenderness, Normal capillary refill, Normal inspection, Normal range of motion, Non-tender, No pedal edema Musculoskeletal : Apperance: Normal Neurologic: Alert, saddle lining stitcher II-XII nml as Tested, Motor Weakness, Normal Affect, Normal Mood, No Sensory Deficits Cerebellar Function: Normal Reflexes: Normal Skin: Dry, Pallor, Warm Lymphatic: No Adenopathy Was a procedure done? Was a procedure done?: No Differential Diagnosis (NSB) Differential Diagnosis: Anterior Nasal Bleed, Posterior Nasal Bleed, Hypertension, Coagulopathy X-Ray, Labs, Meds, VS Vital Signs Date Time Temp Pulse Resp B/P (MAP) Pulse Ox O2 Delivery O2 Flow Rate FiO2 05/24/24 13:17 109 25 93/52 (66) 95 05/24/24 12:00 116 34 89 Nasal Cannula* 2 28 05/24/24 12:00 98.2 116 34 102/61 (75) 89 98.2 05/24/24 11:59 98.1 114 28 106/72 (83) 94 Lab Test 05/24/24 13:15 Range/Units White Blood Count 6.6 # 4.4-10.8 10^3/uL Red Blood Count 2.07 L 4.5-5.90 10^6/uL Hemoglobin 6.3 #*L 13.5-17.5 g/dL Hematocrit 19.0 #L 41.0-53.0 % Mean Corpuscular Volume 92.1 80.0-100.0 fL Mean Corpuscular Hemoglobin 30.6 28.0-32.0 pg Mean Corpuscular Hemoglobin Concent 33.2 32.0-36.0 g/dL Red Cell Distribution Width 16.0 H 11.8-14.3 % Platelet Count 32 L 140-450 10^3/uL Mean Platelet Volume 8.7 6.9-10.8 fL Neutrophils (%) (Auto) 37.0-80.0 % Lymphocytes (%) (Auto) 10.0-50.0 % Monocytes (%) (Auto) 0.0-12.0 % Basophils (%) (Auto) 0.0-2.0 % Neutrophils # (Auto) 1.6-8.6 10 ^3/uL Lymphocytes # (Auto) 0.4-5.4 10 ^3/uL Monocytes # (Auto) 0-1.3 10 ^3/uL Differential Total Cells Counted 100.0 100 Neutrophils % (Manual) 92 H 37.0-80.0 Band Neutrophils % (Manual) 0 Lymphocytes % (Manual) 3 L 10.0-50.0 Monocytes % (Manual) 5 0-12 Eosinophils % (Manual) 0 0-7 Basophils % (Manual) 0 0.0-2.0 Metamyelocytes % (manual) 0 Myelocytes % (Manual) 0 Promyelocytes % (Manual) 0 Blast Cells % (Manual) 0 Reactive Lymphocytes 0 Platelet Estimate Decreased Prothrombin Time 11.4 9.3-11.8 sec Prothrombin Time INR 1.08 0.9-1.15 Activated Partial Thromboplast Time 23.5 L 24.5-34.5 SEC The CBC shows a hemoglobin of 6.3 and hematocrit of 19.1 The patient was thrombocytopenic with a platelets of only 32 We have typed and screen the patient and the patient is being transfused with 2 units of packed red blood cells as well as platelets The patient became slightly hypotensive so we feel that the patient's blood pressure will be addressed upon transfusion We did contact [facility] and they gave us authorization for admission The authorization #[id number] At this time the patient will be admitted to our facility. We have discussed the patient's condition with the family and they are in agreement with the management Time of 1ST Reevaluation: 12:35 Reevaluation 1ST: Unchanged Patient Education/Counseling: Diagnosis, Treatment, Prognosis Family Education/Counseling: Diagnosis, Treatment, Prognosis Departure 1 Departure Time of Disposition: 15:00 Impression: Primary Impression: Thrombocytopenia Additional Impressions: Blood loss anemia Epistaxis Disposition: ADMITTED INPATIENT Admit to: Tele Condition: Fair e-Prescriptions No Active Prescriptions or Reported Meds Critical Care Note Critical Care Time?: Yes (45 min-critical care time only) Stability Stability form required: Yes Unstable for transfer: Telemetry monitoring (Telemetry monitoring required), ED Physician Assesment (Clinical assesment) Heart Score Heart Score: Heart Score Response (Comments) Value History N/A 0 EKG N/A 0 Age N/A 0 Risk Factors N/A 0 Troponin N/A 0 Total 0 I personally scribed for KAMRON STERLING MD ([email or web address]) on 05/24/24 at 12:09. Electronically submitted by Karla Durand ([email or web address]). KAMRON STERLING MD May 24, 2024 12:09
[2024-05-24 13:45] LABS: Mean Corpuscular Hemoglobin 30.6 pg (28.0-32.0); Mean Corpuscular Hgb Conc. 33.2 g/dL (32.0-36.0); Mean Corpuscular Volume 92.1 fL (80.0-100.0); Red Blood Cells 2.07 10^6/uL (4.5-5.90); White Blood Cell 6.6 10^3/uL (4.4-10.8)
[2024-05-24 13:52] LABS: INR 1.08 (0.9-1.15); Partial Thromboplastin Time 23.5 SEC (24.5-34.5); Prothrombin Time 11.4 sec (9.3-11.8)
[2024-05-24 14:27] LABS: Hemoglobin 6.3 g/dL (13.5-17.5)
[2024-05-24 14:32] LABS: Platelet Count (auto) 32 10^3/uL (140-450)
[2024-05-24 14:33] LABS: Band Neutrophils % (manual) 0; Basophils % (manual) 0 (0.0-2.0); Blast Cells 0; Eosinophils % (manual) 0 (0-7); Lymphocytes % (manual) 3 (10.0-50.0); Metamyelocytes % 0; Monocytes % (manual) 5 (0-12); Myelocytes % 0; Promyelocytes % 0; Reactive Lymphocytes 0
[2024-05-24 14:34] LABS: Platelet Estimate Decreased
[2024-05-24 18:30] VITALS: BP 110/56; PULSE 110; RESP 17; TEMP 98.4
[2024-05-24 18:45] VITALS: BP 107/55; PULSE 106; RESP 18; TEMP 98.4
[2024-05-24 19:00] VITALS: BP 100/57; PULSE 98; RESP 15; TEMP 98.4
[2024-05-24 20:11] VITALS: PULSE 107; RESP 20; O2SAT 96
[2024-05-24] MEDS ORDERED: MORPHINE SULFATE INJ 2 MG/ml SYRG IV PRN ×2 (21:00)
[2024-05-24] MEDS ORDERED: ONDANSETRON HCL 4 MG/2 ML VIAL IV PRN (21:00)
[2024-05-24] MEDS ORDERED: ACETAMINOPHEN 325 MG TAB PO PRN (21:00)
[2024-05-24] MEDS ORDERED: NITROGLYCERIN 0.4 MG SL TAB SL PRN (21:00)
[2024-05-24 21:40] VITALS: BP 116/62; PULSE 100; RESP 19; TEMP 98.9
[2024-05-24] MEDS: FUROSEMIDE 40 MG/4 ML VIAL IV SCH (22:00)
--- NOTE | 2024-05-24 22:03 | DVHHPRES ---
History of Present Illness Resident Creating Document: DEMARIO DUNBAR RESIDENT History of Present Illness CESILIA CEVALLOS is 78 years old male with a PMH of malignant melanoma, Meniere's disease, pulmonary sarcoidosis, neuropathy, vasovagal syncope, hypothyroidism, colon cancer presented to the ED with the chief complaints of nosebleed since this morning. Patient reported earlier this morning he started having right nostril bleed which is uncontrolled, called EMS. Patient reported he was in this facility on Saturday, placed a rhino packet and discharged to [facility]. Patient reported he has been having multiple nosebleeds sincerely diagnosed as melanoma in March 2024. On my assessment patient denies headache, nausea, vomiting, diarrhea, fever, chest pain, shortness of breath and other associated symptoms Past Medical History malignant melanoma, Meniere's disease, pulmonary sarcoidosis, neuropathy, vasovagal syncope, hypothyroidism, colon cancer Past Surgical History Colon cancer surgery, multiple skin cancer surgeries, hernia repair Family History: None Past Social History Lives at home with . Denies smoking, alcohol and other drug abuse Review of Systems ENT: Other (Right nostril epistaxis) Respiratory: No: Cough, Dry, Shortness of breath, SOB with excertion, Wheezing, Hemoptysis, Pleuritic Pain, Sputum, Wheezing, Other Cardiovascular: No: Chest Pain, Palpitations, Orthopnea, Paroxysmal Noc. Dyspnea, Edema, Lt Headedness, Other Gastrointestinal: No: Nausea, Vomiting, Abdominal Pain, Diarrhea, Constipation, Melena, Hematochezia, Other Genitourinary: No Dysuria, No Frequency, No Incontinence, No Hematuria, No Retention, No Other Musculoskeletal: No: other, neck pain, shoulder pain, arm pain, back pain, hand pain, leg pain, foot pain Skin: No: Rash, Lesions, Jaundice, Bruising, Other Neurological: No: Weakness, Numbness, Incoordination, Change in speech, Confusion, Seizures, Other Allergies: Coded Allergies: Hydrocodone (Verified Allergy, Unknown, 04/15/22) Medications Current Medications Medications Dose Ordered Sig/Sarah Route Start Time Stop Time Status Last Admin Dose Admin Sodium Chloride 10 ml Q8HR IV 05/24/24 22:00 Acetaminophen 325 mg Q4HP PRN PO 05/24/24 21:00 Ondansetron HCl 4 mg Q4HP PRN IV 05/24/24 21:00 Morphine Sulfate 2 mg Q4HPRN PRN IV 05/24/24 21:00 Nitroglycerin 0.4 mg Q5MINP PRN SL 05/24/24 21:00 Morphine Sulfate 2 mg Q30M PRN IV 05/24/24 21:00 Levothyroxine Sodium 125 mcg QAM@0600 PO 05/25/24 06:00 UNV Furosemide 40 mg DAILY IV 05/24/24 22:00 UNV Metoprolol Succinate 25 mg DAILY PO 05/24/24 22:00 UNV Pregabalin 25 mg BID PO 05/24/24 22:00 UNV Exam Vital Signs Vital Signs Date Time Temp Pulse Resp B/P (MAP) Pulse Ox O2 Delivery O2 Flow Rate FiO2 05/24/24 21:40 98.9 100 19 116/62 98.9 05/24/24 20:11 96 05/24/24 20:11 Nasal Cannula* 3 32 Exam Pt is lying on bed General Appearance: Alert, Oriented X3, Cooperative, Not in acute distress HEENT: Swollen, (neoplastic), punctate lesions on left eyebrow Respiratory: Clear to auscultation, Normal air movement, No added sounds Cardiovascular: Regular rate, Normal S1, Normal S2, No murmurs Abdominal: Active bowel sounds, Soft, no distention, no tenderness Extremities: 1+ edema in BLE Skin: Skin lesion on left forehead likely neoplasm, telangiectasia lesions on face, ecchymosis Neuro: Normal speech, sensorimotor deficits none Psych/Mental Status: Mental status NL, Mood NL Nurse was there as sharperone during examination Labs/Xrays Labs Test 05/24/24 13:15 Range/Units White Blood Count 6.6 # 4.4-10.8 10^3/uL Red Blood Count 2.07 L 4.5-5.90 10^6/uL Hemoglobin 6.3 #*L 13.5-17.5 g/dL Hematocrit 19.0 #L 41.0-53.0 % Mean Corpuscular Volume 92.1 80.0-100.0 fL Mean Corpuscular Hemoglobin 30.6 28.0-32.0 pg Mean Corpuscular Hemoglobin Concent 33.2 32.0-36.0 g/dL Red Cell Distribution Width 16.0 H 11.8-14.3 % Platelet Count 32 L 140-450 10^3/uL Mean Platelet Volume 8.7 6.9-10.8 fL Neutrophils (%) (Auto) 37.0-80.0 % Lymphocytes (%) (Auto) 10.0-50.0 % Monocytes (%) (Auto) 0.0-12.0 % Basophils (%) (Auto) 0.0-2.0 % Neutrophils # (Auto) 1.6-8.6 10 ^3/uL Lymphocytes # (Auto) 0.4-5.4 10 ^3/uL Monocytes # (Auto) 0-1.3 10 ^3/uL Differential Total Cells Counted 100.0 100 Neutrophils % (Manual) 92 H 37.0-80.0 Band Neutrophils % (Manual) 0 Lymphocytes % (Manual) 3 L 10.0-50.0 Monocytes % (Manual) 5 0-12 Eosinophils % (Manual) 0 0-7 Basophils % (Manual) 0 0.0-2.0 Metamyelocytes % (manual) 0 Myelocytes % (Manual) 0 Promyelocytes % (Manual) 0 Blast Cells % (Manual) 0 Reactive Lymphocytes 0 Platelet Estimate Decreased Prothrombin Time 11.4 9.3-11.8 sec Prothrombin Time INR 1.08 0.9-1.15 Activated Partial Thromboplast Time 23.5 L 24.5-34.5 SEC Assessment/Plan Assessment/Plan # Recurrent Epistaxis # Thrombocytopenia # acute blood loss anemia -hemoglobin on admission was 6.3 -continuously monitor lab -currently patient is sitting 1 PRBC -ordered platelets for transfusion -rhino pack in right nostril # Hypothyroidism -continue home med # malignant melanoma -continue outpatient follow up with oncologist SCD for now Protonix Cardiac diet Reconciled home meds Goals of care discussed with the patient for more than 27 minutes: Full code status Case management discussed with Dr. Warner, patient and nurse Plan discussed with: Patient, Spouse My Orders Orders - DEMARIO DUNBAR RESIDENT Procedure Category Date Status Time Admit ADMIT 05/24/24 Transmitted 21:00 Allergies VIDA 05/24/24 In Process 21:00 Code Status CODE 05/24/24 Transmitted 21:00 Sodium Chloride Lock PHA 05/24/24 In Process (Saline Lock Ns) 22:00 Acetaminophen Tablet PHA 05/24/24 In Process (Tylenol Tablet) 21:00 Ondansetron Hcl PHA 05/24/24 In Process (Zofran) 21:00 Complete Blood Count LAB 05/25/24 Verified 04:00 Comprehensive LAB 05/25/24 Verified Metabolic Panel 04:00 Cardiac DIET 05/25/24 Transmitted Diet-2gna,Lofat,Lochol Breakfast Pt Request For Service PT 05/24/24 Logged 21:00 Morphine Sulfate PHA 05/24/24 In Process Injection 21:00 Nitroglycerin PHA 05/24/24 In Process Sublingual (Ntrostat 21:00 Morphine Sulfate PHA 05/24/24 In Process Injection 21:00 Oxygen By Nasal RT 05/24/24 Transmitted Cannula 21:00 Stat Ekg For Chest VIDA 05/24/24 In Process Pain 21:00 Notify Of Changes VIDA 05/24/24 In Process From Base 21:00 Spray Pilot For VIDA 05/24/24 In Process 24 Hours 21:00 Emergency Dysrhythmia VIDA 05/24/24 In Process Protocol 21:00 Rhythm Strips Once VIDA 05/24/24 In Process Every Shift 21:00 Drug Screen LAB 05/24/24 Logged 21:51 PTPTT LAB 05/25/24 Verified 04:00 Vitamin D, 25-Hydroxy LAB 05/24/24 Logged 21:51 Vitamin B12 LAB 05/24/24 Logged 21:51 Urinalysis LAB 05/24/24 Logged 21:51 Thyroid Stimulating LAB 05/24/24 Logged Hormone 21:51 Stool Occult Blood LAB 05/25/24 Verified 04:00 Levothyroxine Tablet PHA 05/25/24 Logged (Synthroid Tablet) 06:00 Furosemide Injection PHA 05/24/24 Logged (Lasix Injection) 22:00 Metoprolol Xl PHA 05/24/24 Logged Succinate (Toprol Xl) 22:00 Pregabalin Capsule PHA 05/24/24 Logged (Lyrica Capsule) 22:00 Date of Service: May 24, 2024 Billing Provider: VERONIQUE WARNER MD Common Visit Codes: [id number] INP/OBS CARE (HIGH) Secondary Visit Codes: [id number] CARE PLAN 30 MINUTES BETTINAMELINDADONITA RESIDENT May 24, 2024 22:03 VERONIQUE WARNER MD May 26, 2024 09:28
[2024-05-24] MEDS: SODIUM CHLOR 0.9% PF (SALINE LOCK) 10ML VIAL/SYR IV SCH (23:01)
[2024-05-24] MEDS: METOPROLOL SUCCINATE XL 50 MG TAB PO SCH (23:02)
[2024-05-24] MEDS: PREGABALIN 25 MG CAP PO SCH (23:03)
[2024-05-24] MEDS: MELATONIN 5 MG TAB PO ONE (23:48)
[2024-05-25] VITALS (10 sets, daily range): BP systolic 99–120; BP diastolic 53–63; PULSE 94–105; RESP 15–20; TEMP 97.4–98.6; O2SAT 92–99
[2024-05-25 00:38] LABS: Urine Bacteria FEW /hpf (None Seen); Urine Blood TRACE /uL (Negative); Urine Clarity Clear (Clear); Urine Color Light-Yellow (Yellow); Urine Protein, UAD 1+ (Negative); Urine Specific Gravity 1.013 (1.001-1.035); Urine Urobilinogen Normal (Negative); Urine WBC 40 /hpf (0 - 3); Urine WBC Clumps PRESENT /hpf (None Seen)
[2024-05-25 01:47] LABS: Amphetamine Screen, Urine Neg (NEGATIVE); Barbiturate Scree,Urine Neg (NEGATIVE); Benzodiazephine Screen, Urine Neg (NEGATIVE); Cocaine Screen, Urine Neg (NEGATIVE)
[2024-05-25 01:48] LABS: Cannabinoid Screen, Urine Neg (NEGATIVE); Opiate Scree,Urine Neg (NEGATIVE); Phencyclidine Screen, Urine Neg (NEGATIVE)
[2024-05-25] MEDS: LEVOTHYROXINE SODIUM 50 MCG TAB PO SCH (05:43)
[2024-05-25 06:17] LABS: Basophils # (auto) 0 10 ^3/uL (0-0.2); Basophils % (auto) 0.1 % (0.0-2.0); Eosinophils # (auto) 0 10 ^3/uL (0-0.8); Hematocrit 21.6 % (41.0-53.0); Hemoglobin 7.1 g/dL (13.5-17.5); Lymphocytes # (auto) 0.2 10 ^3/uL (0.4-5.4); Lymphocytes % (auto) 3.6 % (10.0-50.0); Mean Corpuscular Hemoglobin 29.6 pg (28.0-32.0); Mean Corpuscular Hgb Conc. 32.9 g/dL (32.0-36.0); Monocytes # (auto) 0.5 10 ^3/uL (0-1.3); Monocytes % (auto) 7.2 % (0.0-12.0); Neutrophils # (auto) 5.8 10 ^3/uL (1.6-8.6); Neutrophils % (auto) 89.1 % (37.0-80.0); Platelet Count (auto) 32 10^3/uL (140-450); Red Cell Distribution Width 15.6 % (11.8-14.3); White Blood Cell 6.6 10^3/uL (4.4-10.8)
[2024-05-25 06:25] LABS: INR 1.09 (0.9-1.15); Prothrombin Time 11.5 sec (9.3-11.8)
[2024-05-25 06:27] LABS: Alanine Aminotransferase 21 U/L (7-40); Albumin 3.3 g/dL (3.2-4.8); Alkaline Phosphatase 63 U/L (46-116); Anion Gap 5 (5-15); Aspartate Aminotransferase 24 U/L (13-40); BUN/Creatinine Ratio 24.3 (10.0-20.0); Bilirubin, Total 2.1 mg/dL (0.2-1.0); Blood Urea Nitrogen 18 mg/dL (9-23); Carbon Dioxide 27 mmol/L (20-31); Chloride 101 mmol/L (98-107); Glucose 91 mg/dL (74-106); Potassium 4.1 mmol/L (3.5-5.1); Sodium 133 mmol/L (136-145)
[2024-05-25] MEDS ORDERED: CYCL0.09 OP (10:38)
[2024-05-25] MEDS ORDERED: LEVO125T7 PO (10:38)
[2024-05-25] MEDS ORDERED: FLUT1SPR5 (10:38)
[2024-05-25] MEDS ORDERED: METO25TA93 PO (10:38)
[2024-05-25] MEDS ORDERED: PREG50CA PO (10:38)
[2024-05-25 11:39] LABS: Free T3 0.88 pg/mL (2.3-4.2); Free T4 (Free Thyroxine) 0.49 ng/dL (0.89-1.76)
--- NOTE | 2024-05-25 12:47 | DVHPN2 ---
Progress Note Date Seen: May 25, 2024 Medical Necessity Reason Pt with a Central, PICC or Fol: No Subjective Patient reports: No new complaints Review of Systems: HEENT:Normal, CVS:Normal, RESPIRATORY:Normal, GI:Normal, :Normal, MSK:Normal, NEURO:Normal Objective vital signs Vital Sign Date Time Temp Pulse Resp B/P (MAP) Pulse Ox O2 Delivery O2 Flow Rate FiO2 05/25/24 10:05 16 97 Nasal Cannula* 4 36 05/25/24 10:00 113 97/52 05/25/24 09:10 98.1 98.1 Total Intake and Output 05/24/24 05/24/24 05/25/24 15:00 23:00 07:00 Intake Total 300 ml 353 ml Output Total 500 ml Balance 300 ml -147 ml medications Current Medications Medications Dose Ordered Sig/Sarah Route Start Time Stop Time Status Last Admin Dose Admin Sodium Chloride 10 ml Q8HR IV 05/24/24 22:00 05/25/24 05:42 10 ML Acetaminophen 325 mg Q4HP PRN PO 05/24/24 21:00 Ondansetron HCl 4 mg Q4HP PRN IV 05/24/24 21:00 Morphine Sulfate 2 mg Q4HPRN PRN IV 05/24/24 21:00 Nitroglycerin 0.4 mg Q5MINP PRN SL 05/24/24 21:00 Morphine Sulfate 2 mg Q30M PRN IV 05/24/24 21:00 Levothyroxine Sodium 125 mcg QAM@0600 PO 05/25/24 06:00 05/25/24 05:43 125 MCG Furosemide 40 mg DAILY IV 05/24/24 22:00 Metoprolol Succinate 25 mg DAILY PO 05/24/24 22:00 05/24/24 23:02 25 MG Pregabalin 25 mg BID PO 05/24/24 22:00 05/25/24 10:40 25 MG Examination: GENERAL:Normal, HEENT:Normal, NECK:Normal, LUNGS:Normal, LUNGS:Abnormal (right nasal pack, oxygen), CVS:Normal, ABDOMEN:Normal, MSK:Normal, SKIN:Normal, NEURO:Normal, :Normal laboratory and microbiology Laboratory Tests 05/25/24 05:10 Test 05/25/24 05:10 Range/Units Serum Glucose 91 74-106 mg/dL Problem List/Assessment/Plan Problem List/Assessment/Plan #1 Severe anemia, status post transfusion. #2 Thrombocytopenia: IV steroids, transfuse #3 Metastatic melanoma, status post immunotherapy. #4 Pulmonary sarcoidosis. #5 Hypothyroidism. #6 Hypertension. #7 Acute respiratory failure. advance care planning- full code- time spent 19 mins Plan discussed with: Patient, Spouse My Orders My Orders Orders - KOREY MELGOZA MD Procedure Category Date Status Time * Hematology/Oncology CONS 05/25/24 Transmitted Consult 12:42 Methylprednisolone PHA 05/25/24 Transmitted Sod Succ (Solu Medrol 14:00 Pantoprazole PHA 05/26/24 Transmitted (Protonix) 10:00 Basic Metabolic Panel LAB 05/26/24 Verified 06:00 Complete Blood Count LAB 05/26/24 Verified 06:00 Date of Service: May 25, 2024 Billing Provider: KOREY MELGOZA MD Common Visit Codes: [id number] INP/OBS CARE(HIGH) Secondary Visit Codes: [id number] CARE PLAN 30 MINUTES CC Plasma Assessment Blood Product Administration S: [id number] KOREY MELGOZA MD May 25, 2024 12:47
[2024-05-25] MEDS: methylPREDNISolone SOD SUCC 125 MG/2 ML VL IV SCH (14:41)
--- NOTE | 2024-05-25 15:44 | DVHINCON2 ---
Date of service: May 25, [address] Morena Fortune Reason for Consultation Nosebleed, thrombocytopenia, melanoma and status post Keytruda 1 treatment History of Present Illness 78 years old gentleman whose is by his bedside. 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 He has been treated at [place] With the 1 dose of Keytruda on April 07, 2024 Then he was admitted to [facility] with pneumonia and complications for 3 weeks and was sent to the rehab He was recently here at [facility] with Pneumonia and anemia and thrombocytopenia He had a bone marrow aspiration biopsy done at [facility] on 04/28/2024 which showed hypercellular marrow with increased megakaryocytes. No morphologic or immunophenotypic evidence of marrow involvement by malignant melanoma. Adequate iron stores. Flow cytometry showed no diagnostic immunophenotypic abnormalities He was at rehab and now he is admitted with nosebleed and platelet count of 32,000. . He is admitted with significant right nostril bleeding 3 days back and he was brought to the ER from the [facility] and had packing done. But he continued having significant nosebleed then came in back to the hospital 2 days back and is admitted with a nasal packing And severe anemia with a white count of 6.6 hemoglobin 6.3 MCV 92.1 platelets were 32,000 yesterday and today the platelet count is 32,000 with a hemoglobin of 7.1 after transfusion white count 6.6. No significant bruising and no other site of bleeding indicating he may have a local problem with the right nostril Past Medical History History of Meniere's disease Neuropathy Hyperthyroidism and had thyroidectomy in 1979 and is hypothyroid no Pulmonary sarcoidosis since January 2024 and took prednisone for eight weeks History of colon cancer in 2007 and had surgery was stage II and no adjuvant treatment Past Surgical History None Family History: Cardiovascular disease G8 MOTHER FHx: emphysema G8 FATHER Family History No malignancies or hematological disorders Social History No smoking or drinking or drugs Allergies: Coded Allergies: Hydrocodone (Verified Allergy, Unknown, 04/15/22) Home Meds Reported Medications Cyclosporine (Cequa) 0.09 % Pati, 0.09 % OP BID, ML 05/25/24 Fluticasone Propionate (Nasal) (Flonase Allergy Relief) 50 Mcg/Act Spr, 50 MCG NA PRN, SPRAY 05/25/24 Pregabalin (Lyrica) 50 Mg Cap, 1 CAP PO BID, #90 CAP 05/25/24 Metoprolol Succinate (Metoprolol Succinate Er) 25 Mg Tab, 1 TAB PO BID, #30 TAB 5 Refills 05/25/24 Levothyroxine Sodium (Levothyroxine Sodium) 125 Mcg Tab, 1 TAB PO DAILY, #30 TAB 5 Refills 05/25/24 Current Medications Current Medications Medications (Trade) Dose Ordered Sig/Sarah Route PRN Reason Start Time Stop Time Status Last Admin Sodium Chloride (Saline Lock Ns) 10 ml Q8HR IV 05/24/24 22:00 05/25/24 14:41 Acetaminophen (Tylenol Tablet) 325 mg Q4HP PRN PO MILD PAIN (1-3 PAIN SCALE) 05/24/24 21:00 Ondansetron HCl (Zofran) 4 mg Q4HP PRN IV NAUSEA / VOMITING 05/24/24 21:00 Morphine Sulfate 2 mg Q4HPRN PRN IV SEVERE PAIN (7-10 PAIN SCALE) 05/24/24 21:00 Nitroglycerin (Ntrostat Sublingual) 0.4 mg Q5MINP PRN SL FOR CHEST PAIN 05/24/24 21:00 Morphine Sulfate 2 mg Q30M PRN IV FOR CHEST PAIN 05/24/24 21:00 Levothyroxine Sodium (Synthroid Tablet) 125 mcg QAM@0600 PO 05/25/24 06:00 05/25/24 05:43 Furosemide (Lasix Injection) 40 mg DAILY IV 05/24/24 22:00 05/25/24 12:44 DC Metoprolol Succinate (Toprol Xl) 25 mg DAILY PO 05/24/24 22:00 05/25/24 12:44 DC 05/24/24 23:02 Pregabalin (Lyrica Capsule) 25 mg BID PO 05/24/24 22:00 05/25/24 10:40 Methylprednisolone Sodium Succinate (Solu Medrol) 60 mg Q8HR IV 05/25/24 14:00 05/25/24 14:41 Pantoprazole Sodium (Protonix) 40 mg DAILY IV 05/26/24 10:00 Sodium Chloride ([place] Nasal [place]) 1 spr QID EACHNOSTRI 05/25/24 18:00 Vital Signs Vital Signs Date Time Temp Pulse Resp B/P (MAP) Pulse Ox O2 Delivery O2 Flow Rate FiO2 05/25/24 13:00 97.4 104 19 109/62 (78) 99 97.4 05/25/24 10:05 Nasal Cannula* 4 36 Physical Exam Moderately built and nourished, in no acute distress, alert and oriented.Has had right nostril packing and no active bleeding at present jaundice Head and neck: Unremarkable for any masses or neck nodes. The left buddhist he has a growth (melanoma) measuring around 2-1/2 cm. No ulceration No conjunctival or mucosal hemorrhage Lungs: Clear Cardiovascular: S1-S2 heard well Abdomen: No organomegaly, tenderness or ascites. Bowel sounds are present. Extremities: No clubbing edema cyanosis or calf tenderness. Skin: Unremarkable for petechia purpura ecchymosis Lymphadenopathy: None Neurological exam: No focal deficit Labs/Diagnostic Data Labs Test 05/25/24 05:10 05/25/24 00:09 05/24/24 13:15 Range/Units White Blood Count 6.6 4.4-10.8 10^3/uL Red Blood Count 2.40 L 4.5-5.90 10^6/uL Hemoglobin 7.1 L 13.5-17.5 g/dL Hematocrit 21.6 #L 41.0-53.0 % Mean Corpuscular Volume 90.0 80.0-100.0 fL Mean Corpuscular Hemoglobin 29.6 28.0-32.0 pg Mean Corpuscular Hemoglobin Concent 32.9 32.0-36.0 g/dL Red Cell Distribution Width 15.6 H 11.8-14.3 % Platelet Count 32 L 140-450 10^3/uL Mean Platelet Volume 8.4 6.9-10.8 fL Neutrophils (%) (Auto) 89.1 H 37.0-80.0 % Lymphocytes (%) (Auto) 3.6 L 10.0-50.0 % Monocytes (%) (Auto) 7.2 0.0-12.0 % Eosinophils (%) (Auto) 0.0 0.0-7.0 % Basophils (%) (Auto) 0.1 0.0-2.0 % Neutrophils # (Auto) 5.8 1.6-8.6 10 ^3/uL Lymphocytes # (Auto) 0.2 L 0.4-5.4 10 ^3/uL Monocytes # (Auto) 0.5 0-1.3 10 ^3/uL Eosinophils # (Auto) 0 0-0.8 10 ^3/uL Basophils # (Auto) 0 0-0.2 10 ^3/uL Nucleated Red Blood Cells 2.0 % Prothrombin Time 11.5 9.3-11.8 sec Prothrombin Time INR 1.09 0.9-1.15 Activated Partial Thromboplast Time 25.0 24.5-34.5 SEC Sodium Level 133 L 136-145 mmol/L Potassium Level 4.1 3.5-5.1 mmol/L Chloride Level 101 98-107 mmol/L Carbon Dioxide Level 27 20-31 mmol/L Anion Gap 5 5-15 Blood Urea Nitrogen 18 9-23 mg/dL Creatinine 0.74 0.700-1.30 mg/dL Glomerular Filtration Rate Calc 92 >90 mL/min BUN/Creatinine Ratio 24.3 H 10.0-20.0 Serum Glucose 91 74-106 mg/dL Calcium Level 8.0 L 8.7-10.4 mg/dL Total Bilirubin 2.1 H 0.2-1.0 mg/dL Aspartate Amino Transferase (AST) 24 13-40 U/L Alanine Aminotransferase (ALT) 21 7-40 U/L Alkaline Phosphatase 63 46-116 U/L Total Protein 5.0 L 5.7-8.2 g/dL Albumin 3.3 3.2-4.8 g/dL Vitamin B12 Level 1937 H 211-911 pg/mL Vitamin D 25-Hydroxy 24.8 L 30.0-100 ng/mL Thyroid Stimulating Hormone (TSH) 8.84 H 0.55-4.78 uIU/mL Free Thyroxine (T4) Calculated 0.49 L 0.89-1.76 ng/dL Free Triiodothyronine (T3) pg/mL 0.88 L 2.3-4.2 pg/mL Urine Color Light-yellow Yellow Urine Clarity Clear Clear Urine pH 7.0 5.0-9.0 Urine Specific [place] 1.013 1.001-1.035 Urine Protein 1+ H Negative Urine Ketones Negative Negative Urine Blood Trace H Negative /uL Urine Nitrite 2+ H Negative Urine Bilirubin Negative Negative Urine Urobilinogen Normal Negative mg/dL Urine Leukocyte Esterase 3+ Negative /uL Urine RBC 5 0 - 3 /hpf Urine WBC 40 0 - 3 /hpf Urine WBC Clumps Present None Seen /hpf Urine Squamous Epithelial Cells None seen <5 /hpf Urine Bacteria Few H None Seen /hpf Urine Glucose Normal Normal mg/dL Urine Opiates Screen Neg NEGATIVE Urine Fentanyl Screen Neg NEGATIVE Urine Barbiturates Screen Neg NEGATIVE Urine Phencyclidine Screen Neg NEGATIVE Urine Amphetamines Screen Neg NEGATIVE Urine Benzodiazepines Screen Neg NEGATIVE Urine Cocaine Screen Neg NEGATIVE Urine Cannabinoids Screen Neg NEGATIVE Differential Total Cells Counted 100.0 100 Neutrophils % (Manual) 92 H 37.0-80.0 Band Neutrophils % (Manual) 0 Lymphocytes % (Manual) 3 L 10.0-50.0 Monocytes % (Manual) 5 0-12 Eosinophils % (Manual) 0 0-7 Basophils % (Manual) 0 0.0-2.0 Metamyelocytes % (manual) 0 Myelocytes % (Manual) 0 Promyelocytes % (Manual) 0 Blast Cells % (Manual) 0 Reactive Lymphocytes 0 Platelet Estimate Decreased Assessment 1. 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 This could be secondary to either metastatic disease or reaction to Keytruda. He was at [facility] in April 2024 and had a bone marrow aspiration biopsy which showed hypercellular marrow [70% cellularity with increased megakaryocytes] No morphologic or immunophenotypic evidence of marrow involvement by malignant melanoma. Adequate iron stores Flow cytometry showed no diagnostic immunophenotypic abnormalities Now he is admitted with a right nostril bleed anemia and thrombocytopenia and is status post transfusion of the packed cells and the platelets are 32,000 and he has a nasal packing on the right and he is not bleeding actively White count today is 6.6 hemoglobin 7.1 platelets 32,000[The thrombocytopenia an d anemia could be secondary to immune process secondary to immunotherapy and the liver mets could be playing a role also] 2. History of colon cancer in 1999 [age] and had surgery no adjuvant treatment was stage II 3. Meniere's disease 4. Neuropathy 5. History of thyroidectomy 1984 hypothyroidism and is on thyroid replacement now 6. History of pulmonary sarcoidosis Plan/Recommendation Continue IV Solu-Medrol As the bleeding has stopped may hold off any platelet transfusion If the bleeding restarts then he could be given platelet transfusion 1 unit pack No more immunotherapy If the steroids do not work then he could be tried on IVIG Plan discussed with: Patient, Spouse RITA GARCIA MD May 25, 2024 15:44
[2024-05-25] MEDS: SALINE 0.65 % NASAL SPRAY 45ML BOTTLE EACHNOSTRI SCH (18:00)
[2024-05-25] MEDS: TEMAZEPAM 15 MG CAP PO PRN (23:27)
[2024-05-26] VITALS (7 sets, daily range): BP systolic 98–114; BP diastolic 63–68; PULSE 68–120; RESP 18–20; TEMP 97.2–98.1; O2SAT 96–99
[2024-05-26 07:46] LABS: Basophils # (auto) 0 10 ^3/uL (0-0.2); Basophils % (auto) 0.4 % (0.0-2.0); Eosinophils # (auto) 0 10 ^3/uL (0-0.8); Hematocrit 21.8 % (41.0-53.0); Hemoglobin 7.1 g/dL (13.5-17.5); Lymphocytes # (auto) 0.3 10 ^3/uL (0.4-5.4); Lymphocytes % (auto) 7.8 % (10.0-50.0); Mean Corpuscular Hemoglobin 29.5 pg (28.0-32.0); Mean Corpuscular Hgb Conc. 32.5 g/dL (32.0-36.0); Mean Corpuscular Volume 90.8 fL (80.0-100.0); Monocytes # (auto) 0.1 10 ^3/uL (0-1.3); Monocytes % (auto) 1.7 % (0.0-12.0); Neutrophils # (auto) 3.2 10 ^3/uL (1.6-8.6); Neutrophils % (auto) 90.1 % (37.0-80.0); Nucleated Red Blood Cells % 2.6 %; Red Cell Distribution Width 15.3 % (11.8-14.3); White Blood Cell 3.5 10^3/uL (4.4-10.8)
[2024-05-26 07:49] LABS: Platelet Count (auto) 38 10^3/uL (140-450)
[2024-05-26 08:57] LABS: Chloride 103 mmol/L (98-107); Potassium 4.5 mmol/L (3.5-5.1); Sodium 135 mmol/L (136-145)
[2024-05-26 08:58] LABS: Anion Gap 5 (5-15); Carbon Dioxide 27 mmol/L (20-31)
--- NOTE | 2024-05-26 08:58 | DVHPN2 ---
Progress Note - Dictate Date Seen: May 26, 2024 Has the PT tested + for MRSA If YES, has PT been informed?: Yes Medical Necessity Reason Pt with a Central, PICC or Fol: No Subjective Patient is feeling well. He has packing in the right nostril and no active bleeding He is on IV Solu-Medrol vital signs Vital Sign Date Time Temp Pulse Resp B/P (MAP) Pulse Ox O2 Delivery O2 Flow Rate FiO2 05/26/24 08:00 96 Nasal Cannula* 4 36 05/25/24 20:58 97.6 102 17 120/63 (82) 97.6 Total Intake and Output 05/25/24 05/25/24 05/26/24 15:00 23:00 07:00 Intake Total 450 ml 240 ml Output Total 450 ml 450 ml Balance 0 ml -210 ml medications Current Medications Medications Dose Ordered Sig/Sarah Route Start Time Stop Time Status Last Admin Dose Admin Sodium Chloride 10 ml Q8HR IV 05/24/24 22:00 05/26/24 06:00 10 ML Acetaminophen 325 mg Q4HP PRN PO 05/24/24 21:00 Ondansetron HCl 4 mg Q4HP PRN IV 05/24/24 21:00 Morphine Sulfate 2 mg Q4HPRN PRN IV 05/24/24 21:00 Nitroglycerin 0.4 mg Q5MINP PRN SL 05/24/24 21:00 Morphine Sulfate 2 mg Q30M PRN IV 05/24/24 21:00 Levothyroxine Sodium 125 mcg QAM@0600 PO 05/25/24 06:00 05/26/24 07:03 125 MCG Pregabalin 25 mg BID PO 05/24/24 22:00 05/25/24 23:18 25 MG Methylprednisolone Sodium Succinate 60 mg Q8HR IV 05/25/24 14:00 05/26/24 07:04 60 MG Pantoprazole Sodium 40 mg DAILY IV 05/26/24 10:00 Sodium Chloride 1 spr QID EACHNOSTRI 05/25/24 18:00 05/26/24 06:00 1 SPR Temazepam 15 mg HSPRN PRN PO 05/25/24 16:30 05/25/24 23:27 15 MG objective Head and neck: Unremarkable for any masses or neck nodes. Packing in the right nostril and has some clotted blood Lungs: Clear Cardiovascular: Regular sinus rhythm Abdomen: No organomegaly, tenderness or ascites. Bowel sounds are present. Extremities: No clubbing edema cyanosis or calf tenderness. Skin: Has some ecchymosis on the extremities Lymphadenopathy: None laboratory and microbiology Laboratory Tests 05/26/24 06:16 Test 05/26/24 06:16 Range/Units Serum Glucose Pending Assessment/Plan 1. 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 This could be secondary to either metastatic disease or reaction to Keytruda. He was at [facility] in April 2024 and had a bone marrow aspiration biopsy which showed hypercellular marrow [70% cellularity with increased megakaryocytes] No morphologic or immunophenotypic evidence of marrow involvement by malignant melanoma. Adequate iron stores Flow cytometry showed no diagnostic immunophenotypic abnormalities Now he is admitted with a right nostril bleed anemia and thrombocytopenia and is status post transfusion of the packed cells and the platelets are 32,000 and he has a nasal packing on the right and he is not bleeding actively White count today is 6.6 hemoglobin 7.1 platelets 32,000[The thrombocytopenia and anemia could be secondary to immune process secondary to immunotherapy and the liver mets could be playing a role also] 05/26/2024: White count 3.5 hemoglobin 7.1 platelets [id number] 2. History of colon cancer in 1999 [age] and had surgery no adjuvant treatment was stage II 3. Meniere's disease 4. Neuropathy 5. History of thyroidectomy 1984 hypothyroidism and is on thyroid replacement now 6. History of pulmonary sarcoidosis Plan/Recommendation Continue IV Solu-Medrol As the bleeding has stopped may hold off any platelet transfusion If the bleeding restarts then he could be given platelet transfusion 1 unit pack No more immunotherapy If the steroids do not work then he could be tried on IVIG Plan discussed with: Patient CC Plasma Assessment Blood Product Administration S: [id number] RITA GARCIA MD May 26, 2024 08:58
[2024-05-26 08:59] LABS: Calcium 8.3 mg/dL (8.7-10.4)
[2024-05-26 09:03] LABS: BUN/Creatinine Ratio 26.8 (10.0-20.0); Blood Urea Nitrogen 19 mg/dL (9-23); Glucose 144 mg/dL (74-106)
[2024-05-26] MEDS: PANTOPRAZOLE 40 MG/10 ML VIAL INJ IV SCH (10:01)
--- NOTE | 2024-05-26 15:49 | DVHPN2 ---
Progress Note Date Seen: May 26, 2024 Has the PT tested + for MRSA If YES, has PT been informed?: Yes Medical Necessity Reason Pt with a Central, PICC or Fol: No Subjective Patient reports: No new complaints Review of Systems: HEENT:Normal, CVS:Normal, RESPIRATORY:Normal, GI:Normal, :Normal, MSK:Normal, NEURO:Normal Objective vital signs Vital Sign Date Time Temp Pulse Resp B/P (MAP) Pulse Ox O2 Delivery O2 Flow Rate FiO2 05/26/24 13:00 97.7 101 18 108/68 (81) 99 97.7 05/26/24 08:00 Nasal Cannula* 4 36 Total Intake and Output 05/25/24 05/25/24 05/26/24 15:00 23:00 07:00 Intake Total 450 ml 240 ml Output Total 450 ml 450 ml Balance 0 ml -210 ml medications Current Medications Medications Dose Ordered Sig/Sarah Route Start Time Stop Time Status Last Admin Dose Admin Sodium Chloride 10 ml Q8HR IV 05/24/24 22:00 05/26/24 13:47 10 ML Acetaminophen 325 mg Q4HP PRN PO 05/24/24 21:00 Ondansetron HCl 4 mg Q4HP PRN IV 05/24/24 21:00 Morphine Sulfate 2 mg Q4HPRN PRN IV 05/24/24 21:00 Nitroglycerin 0.4 mg Q5MINP PRN SL 05/24/24 21:00 Morphine Sulfate 2 mg Q30M PRN IV 05/24/24 21:00 Levothyroxine Sodium 125 mcg QAM@0600 PO 05/25/24 06:00 05/26/24 07:03 125 MCG Pregabalin 25 mg BID PO 05/24/24 22:00 05/26/24 10:02 25 MG Methylprednisolone Sodium Succinate 60 mg Q8HR IV 05/25/24 14:00 05/26/24 13:47 60 MG Pantoprazole Sodium 40 mg DAILY IV 05/26/24 10:00 05/26/24 10:01 40 MG Sodium Chloride 1 spr QID EACHNOSTRI 05/25/24 18:00 05/26/24 12:00 1 SPR Temazepam 15 mg HSPRN PRN PO 05/25/24 16:30 05/25/24 23:27 15 MG Examination: GENERAL:Normal, HEENT:Normal, NECK:Normal, LUNGS:Normal, LUNGS:Abnormal (on oxygen), CVS:Normal, ABDOMEN:Normal, MSK:Normal, SKIN:Normal, NEURO:Normal, :Normal laboratory and microbiology Laboratory Tests 05/26/24 06:16 Test 05/26/24 06:16 Range/Units Serum Glucose 144 H 74-106 mg/dL Problem List/Assessment/Plan Problem List/Assessment/Plan #1 Severe anemia, status post transfusion, repeat transfusion #2 Thrombocytopenia: IV steroids, transfuse #3 Metastatic melanoma, status post immunotherapy. #4 Pulmonary sarcoidosis. #5 Hypothyroidism. #6 Hypertension. #7 Acute respiratory failure. #8 h/o colon cancer unstable for transfer advance care planning- full code- time spent 19 mins Plan discussed with: Patient, Son My Orders My Orders Orders - KOREY MELGOZA MD Procedure Category Date Status Time Temazepam (Restoril) PHA 05/25/24 In Process 16:30 Packedcell-Noactive BBK 05/26/24 Verified Bleeding 15:46 Type And Screen BBK 05/26/24 Verified 15:46 Administer Blood VIDA 05/26/24 Verified Products 15:46 Basic Metabolic Panel LAB 05/27/24 Verified 06:00 Complete Blood Count LAB 05/27/24 Verified 06:00 Chest Portable XY 05/27/24 Verified 06:00 Furosemide Injection PHA 05/26/24 Verified (Lasix Injection) 16:00 Date of Service: May 26, 2024 Billing Provider: KOREY MELGOZA MD Common Visit Codes: [id number] INP/OBS CARE(HIGH) CC Plasma Assessment Blood Product Administration S: [id number] KOREY MELGOZA MD May 26, 2024 15:49
[2024-05-26] MEDS: FUROSEMIDE 20 MG/2 ML VIAL IV ONE (16:02)
[2024-05-27] VITALS (10 sets, daily range): BP systolic 100–117; BP diastolic 59–75; PULSE 92–117; RESP 18–22; TEMP 97.2–98.3; O2SAT 96–100
--- NOTE | 2024-05-27 05:06 | DVH ---
CHEST RADIOGRAPH Indication:chf Technique: Single frontal view of the chest was obtained COMPARISON: XY CHEST XRAY 1 VIEW on DOS: 05/13/24, CHEST PORTABLE on DOS: 04/14/22 FINDINGS: Lines and Tubes: None Lungs: Diffuse increased interstitial prominence. Pleura: No effusion. No pneumothorax. Cardiomediastinal contours: Congestion Bones: Unremarkable IMPRESSION: Pulmonary vascular congestion
[2024-05-27 07:33] LABS: Hematocrit 26.4 % (41.0-53.0); Mean Corpuscular Volume 89.4 fL (80.0-100.0); Red Blood Cells 2.95 10^6/uL (4.5-5.90); White Blood Cell 3.6 10^3/uL (4.4-10.8)
[2024-05-27 07:35] LABS: Hemoglobin 8.7 g/dL (13.5-17.5); Mean Corpuscular Hemoglobin 29.4 pg (28.0-32.0); Mean Corpuscular Hgb Conc. 32.9 g/dL (32.0-36.0); Platelet Count (auto) 36 10^3/uL (140-450); Red Cell Distribution Width 15.2 % (11.8-14.3)
[2024-05-27 07:40] LABS: Chloride 102 mmol/L (98-107); Potassium 4.3 mmol/L (3.5-5.1); Sodium 134 mmol/L (136-145)
[2024-05-27 07:41] LABS: Anion Gap 6 (5-15); Calcium 8.4 mg/dL (8.7-10.4); Carbon Dioxide 26 mmol/L (20-31)
[2024-05-27 07:46] LABS: BUN/Creatinine Ratio 32.9 (10.0-20.0); Blood Urea Nitrogen 25 mg/dL (9-23); Glucose 147 mg/dL (74-106)
[2024-05-27 07:53] LABS: Band Neutrophils % (manual) 0; Basophils % (manual) 0 (0.0-2.0); Blast Cells 0; Eosinophils % (manual) 0 (0-7); Metamyelocytes % 0; Myelocytes % 0; Promyelocytes % 0; Reactive Lymphocytes 0
[2024-05-27 08:31] LABS: Lymphocytes % (manual) 13 (10.0-50.0); Monocytes % (manual) 1 (0-12)
[2024-05-27 08:32] LABS: Hypochromia Slight; Platelet Estimate Decreased
[2024-05-27 08:33] LABS: Polychromasia Slight
--- NOTE | 2024-05-27 09:32 | DVHPN2 ---
Progress Note - Dictate Date Seen: May 27, 2024 Has the PT tested + for MRSA If YES, has PT been informed?: Yes Medical Necessity Reason Pt with a Central, PICC or Fol: No Subjective Patient is feeling well. No nostril bleeding. The packing from the right nostril has been removed He is on IV Solu-Medrol vital signs Vital Sign Date Time Temp Pulse Resp B/P (MAP) Pulse Ox O2 Delivery O2 Flow Rate FiO2 05/27/24 08:49 97.6 99 19 110/71 (84) 100 97.6 05/27/24 08:00 Nasal Cannula* 4 36 Total Intake and Output 05/26/24 05/26/24 05/27/24 15:00 23:00 07:00 Intake Total 800 ml 800 ml 1025 ml Output Total 190 ml Balance 800 ml 800 ml 835 ml medications Current Medications Medications Dose Ordered Sig/Sarah Route Start Time Stop Time Status Last Admin Dose Admin Sodium Chloride 10 ml Q8HR IV 05/24/24 22:00 05/27/24 06:24 10 ML Acetaminophen 325 mg Q4HP PRN PO 05/24/24 21:00 Ondansetron HCl 4 mg Q4HP PRN IV 05/24/24 21:00 Morphine Sulfate 2 mg Q4HPRN PRN IV 05/24/24 21:00 Nitroglycerin 0.4 mg Q5MINP PRN SL 05/24/24 21:00 Morphine Sulfate 2 mg Q30M PRN IV 05/24/24 21:00 Levothyroxine Sodium 125 mcg QAM@0600 PO 05/25/24 06:00 05/27/24 06:32 125 MCG Pregabalin 25 mg BID PO 05/24/24 22:00 05/26/24 21:32 25 MG Pantoprazole Sodium 40 mg DAILY IV 05/26/24 10:00 05/26/24 10:01 40 MG Sodium Chloride 1 spr QID EACHNOSTRI 05/25/24 18:00 05/27/24 06:33 1 SPR Temazepam 15 mg HSPRN PRN PO 05/25/24 16:30 05/25/24 23:27 15 MG Prednisone 20 mg TID PO 05/27/24 14:00 objective Head and neck: Unremarkable for any masses or neck nodes. Lungs: Clear Cardiovascular: Regular sinus rhythm Abdomen: No organomegaly, tenderness or ascites. Bowel sounds are present. Extremities: No clubbing edema cyanosis or calf tenderness. Skin: Has some ecchymosis on the extremities Lymphadenopathy: None laboratory and microbiology Laboratory Tests 05/27/24 06:31 Test 05/27/24 06:31 Range/Units Serum Glucose 147 H 74-106 mg/dL Assessment/Plan 1. 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 This could be secondary to either metastatic disease or reaction to Keytruda. He was at [facility] in April 2024 and had a bone marrow aspiration biopsy which showed hypercellular marrow [70% cellularity with increased megakaryocytes] No morphologic or immunophenotypic evidence of marrow involvement by malignant melanoma. Adequate iron stores Flow cytometry showed no diagnostic immunophenotypic abnormalities Now he is admitted with a right nostril bleed anemia and thrombocytopenia and is status post transfusion of the packed cells and the platelets are 32,000 and he has a nasal packing on the right and he is not bleeding actively White count today is 6.6 hemoglobin 7.1 platelets 32,000[The thrombocytopenia and anemia could be secondary to immune process secondary to immunotherapy and the liver mets could be playing a role also] 05/26/2024: White count 3.5 hemoglobin 7.1 platelets [id number] 05/27/2024: White count 3.6 hemoglobin 8.7 [status post 1 unit of PRBC]. Platelets are stable at 36,000 2. History of colon cancer in 1999 [age] and had surgery no adjuvant treatment was stage II 3. Meniere's disease 4. Neuropathy 5. History of thyroidectomy 1984 hypothyroidism and is on thyroid replacement now 6. History of pulmonary sarcoidosis Plan/Recommendation DC IV Solu-Medrol and start him on prednisone 20 mg p.o. 3 times daily PC If CBC is stable by tomorrow then he could be followed as an outpatient Plan discussed with: Patient CC Plasma Assessment Blood Product Administration S: [id number] RITA GARCIA MD May 27, 2024 09:32
--- NOTE | 2024-05-27 13:06 | DVHPN2 ---
Progress Note Date Seen: May 27, 2024 Has the PT tested + for MRSA If YES, has PT been informed?: Yes Medical Necessity Reason Pt with a Central, PICC or Fol: No Subjective Patient reports: No new complaints Review of Systems: HEENT:Normal, CVS:Normal, RESPIRATORY:Normal, GI:Normal, :Normal, MSK:Normal, NEURO:Normal Objective vital signs Vital Sign Date Time Temp Pulse Resp B/P (MAP) Pulse Ox O2 Delivery O2 Flow Rate FiO2 05/27/24 08:49 97.6 99 19 110/71 (84) 100 97.6 05/27/24 08:00 Nasal Cannula* 4 36 Total Intake and Output 05/26/24 05/26/24 05/27/24 15:00 23:00 07:00 Intake Total 800 ml 800 ml 1025 ml Output Total 190 ml Balance 800 ml 800 ml 835 ml medications Current Medications Medications Dose Ordered Sig/Sarah Route Start Time Stop Time Status Last Admin Dose Admin Sodium Chloride 10 ml Q8HR IV 05/24/24 22:00 05/27/24 06:24 10 ML Acetaminophen 325 mg Q4HP PRN PO 05/24/24 21:00 Ondansetron HCl 4 mg Q4HP PRN IV 05/24/24 21:00 Morphine Sulfate 2 mg Q4HPRN PRN IV 05/24/24 21:00 Nitroglycerin 0.4 mg Q5MINP PRN SL 05/24/24 21:00 Morphine Sulfate 2 mg Q30M PRN IV 05/24/24 21:00 Levothyroxine Sodium 125 mcg QAM@0600 PO 05/25/24 06:00 05/27/24 06:32 125 MCG Pregabalin 25 mg BID PO 05/24/24 22:00 05/27/24 09:48 25 MG Pantoprazole Sodium 40 mg DAILY IV 05/26/24 10:00 05/27/24 09:48 40 MG Sodium Chloride 1 spr QID EACHNOSTRI 05/25/24 18:00 05/27/24 11:48 1 SPR Temazepam 15 mg HSPRN PRN PO 05/25/24 16:30 05/25/24 23:27 15 MG Prednisone 20 mg TID PO 05/27/24 14:00 Examination: GENERAL:Normal, HEENT:Normal, NECK:Normal, LUNGS:Normal, CVS:Normal, ABDOMEN:Normal, MSK:Normal, SKIN:Normal, NEURO:Normal, :Normal laboratory and microbiology Laboratory Tests 05/27/24 06:31 Test 05/27/24 06:31 Range/Units Serum Glucose 147 H 74-106 mg/dL Problem List/Assessment/Plan Problem List/Assessment/Plan #1 Severe anemia, status post transfusion, repeat transfusion #2 Thrombocytopenia: steroids, transfuse #3 Metastatic melanoma, status post immunotherapy. #4 Pulmonary sarcoidosis. #5 Hypothyroidism. #6 Hypertension. #7 Acute respiratory failure. #8 h/o colon cancer #9 acute diastolic heart failure: lasix iv unstable for transfer advance care planning- full code- time spent 19 mins Plan discussed with: Patient My Orders My Orders Orders - KOREY MELGOZA MD Procedure Category Date Status Time Chest Portable XY 05/27/24 Resulted 06:00 Date of Service: May 27, 2024 Billing Provider: KOREY MELGOZA MD Common Visit Codes: [id number] INP/OBS CARE(HIGH) CC Plasma Assessment Blood Product Administration S: [id number] KOREY MELGOZA MD May 27, 2024 13:06
[2024-05-27] MEDS: predniSONE 20 MG TAB PO SCH (14:10)
[2024-05-27] MEDS: FUROSEMIDE 20 MG/2 ML VIAL IV ONE (14:24)
[2024-05-28] VITALS (8 sets, daily range): BP systolic 101–122; BP diastolic 56–76; PULSE 92–116; RESP 16–20; TEMP 97.3–98; O2SAT 95–100
[2024-05-28] MEDS: PANTOPRAZOLE 40 MG TAB PO SCH (06:03)
[2024-05-28 08:49] LABS: Basophils # (auto) 0 10 ^3/uL (0-0.2); Basophils % (auto) 0.2 % (0.0-2.0); Eosinophils # (auto) 0 10 ^3/uL (0-0.8); Eosinophils % (auto) 0.1 % (0.0-7.0); Hemoglobin 8.5 g/dL (13.5-17.5); Lymphocytes # (auto) 0.3 10 ^3/uL (0.4-5.4); Mean Corpuscular Volume 88.5 fL (80.0-100.0); Monocytes # (auto) 0.1 10 ^3/uL (0-1.3)
[2024-05-28 08:50] LABS: Hematocrit 25.9 % (41.0-53.0); Lymphocytes % (auto) 6.5 % (10.0-50.0); Mean Corpuscular Hemoglobin 28.9 pg (28.0-32.0); Mean Corpuscular Hgb Conc. 32.7 g/dL (32.0-36.0); Monocytes % (auto) 2.8 % (0.0-12.0); Neutrophils # (auto) 4.3 10 ^3/uL (1.6-8.6); Neutrophils % (auto) 90.4 % (37.0-80.0); Nucleated Red Blood Cells % 1.5 %; Platelet Count (auto) 41 10^3/uL (140-450); Red Blood Cells 2.93 10^6/uL (4.5-5.90); Red Cell Distribution Width 15.5 % (11.8-14.3); White Blood Cell 4.8 10^3/uL (4.4-10.8)
[2024-05-28 08:52] LABS: Anion Gap 7 (5-15); Carbon Dioxide 27 mmol/L (20-31); Chloride 101 mmol/L (98-107); Potassium 3.9 mmol/L (3.5-5.1); Sodium 135 mmol/L (136-145)
[2024-05-28 08:53] LABS: Calcium 8.4 mg/dL (8.7-10.4)
[2024-05-28 08:58] LABS: BUN/Creatinine Ratio 41.9 (10.0-20.0); Blood Urea Nitrogen 31 mg/dL (9-23); Glucose 116 mg/dL (74-106)
[2024-05-28 08:59] LABS: Magnesium 2.1 mg/dL (1.6-2.6)
[2024-05-28] MEDS: POTASSIUM CHL 10 Meq TABLET PO SCH (09:34)
[2024-05-28] MEDS: FUROSEMIDE 20 MG TAB PO SCH (09:34)
[2024-05-28] MEDS: cefTRIAXone 1GM/50ML D5W 50 ML IV ONE (09:52)
--- NOTE | 2024-05-28 10:20 | DVHPN2 ---
Subjective Patient reports weakness Blood pressure is soft at 101/59 Heart rate about 100 to up to 117 at time UA shows UTI Hemoglobin 8.5 Platelets 41 White count 4.8 Changes from previous H/P or p: Changes ENT: Other (Right nostril epistaxis) Cardiovascular: No Chest Pain, No Palpitations, No Orthopnea, No Paroxysmal Noc. Dyspnea, No Edema, No Lt Headedness, No Other Respiratory: No Cough, No Dry, No Shortness of breath, No SOB with excertion, No Wheezing, No Hemoptysis, No Pleuritic Pain, No Sputum, No Other Gastrointestinal: No Nausea, No Vomiting, No Abdominal Pain, No Diarrhea, No Constipation, No Melena, No Hematochezia, No Other Genitourinary: No Dysuria, No Frequency, No Incontinence, No Hematuria, No Retention, No Other Musculoskeletal: No other, No neck pain, No shoulder pain, No arm pain, No back pain, No hand pain, No leg pain, No foot pain Skin: No Rash, No Lesions, No Jaundice, No Bruising, No Other Objective Vitals Vital Signs Date Time Temp Pulse Resp B/P (MAP) Pulse Ox O2 Delivery O2 Flow Rate FiO2 05/28/24 09:34 105/64 05/28/24 09:00 98.0 102 16 100 98.0 05/27/24 20:00 Nasal Cannula* 3 32 Intake/Output Intake and Output 05/28/24 07:00 Intake Total 1300 ml Output Total 1450 ml Balance -150 ml Intake Oral 1300 ml Output Urine Total 1450 ml # Bowel Movements 2 General Appearance: Alert, Oriented X3, Cooperative, No acute distress Lungs: Clear to auscultation, Normal air movement Cardiovascular: Regular rate, Normal S1, Normal S2 Abdomen: Normal bowel sounds, Soft, No tenderness Extremities: No edema Medications Current Medications Medications Dose Ordered Sig/Sarah Route Start Time Stop Time Status Last Admin Dose Admin Sodium Chloride 10 ml Q8HR IV 05/24/24 22:00 05/28/24 06:04 10 ML Acetaminophen 325 mg Q4HP PRN PO 05/24/24 21:00 Ondansetron HCl 4 mg Q4HP PRN IV 05/24/24 21:00 Morphine Sulfate 2 mg Q4HPRN PRN IV 05/24/24 21:00 Nitroglycerin 0.4 mg Q5MINP PRN SL 05/24/24 21:00 Morphine Sulfate 2 mg Q30M PRN IV 05/24/24 21:00 Levothyroxine Sodium 125 mcg QAM@0600 PO 05/25/24 06:00 05/28/24 06:03 125 MCG Pregabalin 25 mg BID PO 05/24/24 22:00 05/28/24 09:35 25 MG Sodium Chloride 1 spr QID EACHNOSTRI 05/25/24 18:00 05/28/24 06:03 1 SPR Temazepam 15 mg HSPRN PRN PO 05/25/24 16:30 05/27/24 21:42 15 MG Prednisone 20 mg TID PO 05/27/24 14:00 05/28/24 06:03 20 MG Pantoprazole Sodium 40 mg DAILY@0600 PO 05/28/24 06:00 05/28/24 06:03 40 MG Furosemide 20 mg DAILY PO 05/28/24 10:00 05/28/24 09:34 20 MG Potassium Chloride 10 meq DAILY PO 05/28/24 10:00 05/28/24 09:34 10 MEQ Ceftriaxone Sodium 50 ml @ 100 mls/hr DAILY@09 IV 05/29/24 09:00 Laboratory Results Laboratory Tests 05/28/24 07:54 Chemistry Test 05/28/24 07:54 Calcium Level 8.4 mg/dL (8.7-10.4) L Magnesium Level 2.1 mg/dL (1.6-2.6) Urinalysis Test 05/25/24 00:09 Urine Color Light-yellow (Yellow) Urine Clarity Clear (Clear) Urine pH 7.0 (5.0-9.0) Urine Specific [place] 1.013 (1.001-1.035) Urine Protein 1+ (Negative) H Urine Ketones Negative (Negative) Urine Blood Trace /uL (Negative) H Urine Nitrite 2+ (Negative) H Urine Bilirubin Negative (Negative) Urine Urobilinogen Normal mg/dL (Negative) Urine Leukocyte Esterase 3+ /uL (Negative) Urine RBC 5 /hpf (0 - 3) Urine WBC 40 /hpf (0 - 3) Urine WBC Clumps Present /hpf (None Seen) Urine Squamous Epithelial Cells None seen /hpf (<5) Urine Bacteria Few /hpf (None Seen) H Urine Glucose Normal mg/dL (Normal) Assessment/Plan Assessment/Plan #1 Severe anemia, status post transfusion, hemoglobin stable at 8.5 now #2 Thrombocytopenia: steroids, platelets 41 now, continue steroids #3 Metastatic melanoma, status post immunotherapy. Has an appointment at [facility] tomorrow #4 Pulmonary sarcoidosis. #5 Hypothyroidism. #6 Hypertension. Hypotensive now #7 Acute respiratory failure. Stable #8 h/o colon cancer #9 acute diastolic heart failure: Continue lasix iv Patient is very weak, he is not able to stand up or sit up without significant assistance His blood pressure is still borderline low Platelets are at 41 also low Plan is to continue steroids Start Rocephin IV for the UTI Continue Lasix 20 mg daily The patient is not stable to be discharged to SNF yet Not stable to transfer due to hypotension and borderline platelet count unstable for transfer Discussed with the at the bedside Plan discussed with: Patient, Spouse My Orders Orders - RUSTAM KAT MD Procedure Category Date Status Time Ceftriaxone 1gm/50ml PHA 05/29/24 In Process D5w (Rocephin) 09:00 Date of Service: May 28, 2024 Billing Provider: RUSTAM KAT MD Common Visit Codes: [id number] INP/OBS CARE(HIGH) RUSTAM KAT MD May 28, 2024 10:20
--- NOTE | 2024-05-28 11:05 | DVHPN2 ---
Progress Note - Dictate Date Seen: May 28, 2024 Has the PT tested + for MRSA If YES, has PT been informed?: Yes Medical Necessity Reason Pt with a Central, PICC or Fol: No Subjective Patient is feeling well. No nostril bleeding. The packing from the right nostril has been removed He is on prednisone 20 mg p.o. 3 times daily vital signs Vital Sign Date Time Temp Pulse Resp B/P (MAP) Pulse Ox O2 Delivery O2 Flow Rate FiO2 05/28/24 09:34 105/64 05/28/24 09:00 98.0 102 16 100 98.0 05/27/24 20:00 Nasal Cannula* 3 32 Total Intake and Output 05/27/24 05/27/24 05/28/24 15:00 23:00 07:00 Intake Total 1000 ml 300 ml Output Total 600 ml 850 ml Balance 400 ml -550 ml medications Current Medications Medications Dose Ordered Sig/Sarah Route Start Time Stop Time Status Last Admin Dose Admin Sodium Chloride 10 ml Q8HR IV 05/24/24 22:00 05/28/24 06:04 10 ML Acetaminophen 325 mg Q4HP PRN PO 05/24/24 21:00 Ondansetron HCl 4 mg Q4HP PRN IV 05/24/24 21:00 Morphine Sulfate 2 mg Q4HPRN PRN IV 05/24/24 21:00 Nitroglycerin 0.4 mg Q5MINP PRN SL 05/24/24 21:00 Morphine Sulfate 2 mg Q30M PRN IV 05/24/24 21:00 Levothyroxine Sodium 125 mcg QAM@0600 PO 05/25/24 06:00 05/28/24 06:03 125 MCG Pregabalin 25 mg BID PO 05/24/24 22:00 05/28/24 09:35 25 MG Sodium Chloride 1 spr QID EACHNOSTRI 05/25/24 18:00 05/28/24 06:03 1 SPR Temazepam 15 mg HSPRN PRN PO 05/25/24 16:30 05/27/24 21:42 15 MG Prednisone 20 mg TID PO 05/27/24 14:00 05/28/24 06:03 20 MG Pantoprazole Sodium 40 mg DAILY@0600 PO 05/28/24 06:00 05/28/24 06:03 40 MG Furosemide 20 mg DAILY PO 05/28/24 10:00 05/28/24 09:34 20 MG Potassium Chloride 10 meq DAILY PO 05/28/24 10:00 05/28/24 09:34 10 MEQ Ceftriaxone Sodium 50 ml @ 100 mls/hr DAILY@09 IV 05/29/24 09:00 objective Head and neck: Unremarkable for any masses or neck nodes. Lungs: Clear Cardiovascular: Regular sinus rhythm Abdomen: No organomegaly, tenderness or ascites. Bowel sounds are present. Extremities: No clubbing edema cyanosis or calf tenderness. Skin: Has some ecchymosis on the extremities Lymphadenopathy: None laboratory and microbiology Laboratory Tests 05/28/24 07:54 Test 05/28/24 07:54 Range/Units Serum Glucose 116 H 74-106 mg/dL Assessment/Plan 1. 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 This could be secondary to either metastatic disease or reaction to Keytruda. He was at [facility] in April 2024 and had a bone marrow aspiration biopsy which showed hypercellular marrow [70% cellularity with increased megakaryocytes] No morphologic or immunophenotypic evidence of marrow involvement by malignant melanoma. Adequate iron stores Flow cytometry showed no diagnostic immunophenotypic abnormalities Now he is admitted with a right nostril bleed anemia and thrombocytopenia and is status post transfusion of the packed cells and the platelets are 32,000 and he has a nasal packing on the right and he is not bleeding actively White count today is 6.6 hemoglobin 7.1 platelets 32,000[The thrombocytopenia and anemia could be secondary to immune process secondary to immunotherapy and the liver mets could be playing a role also] 05/26/2024: White count 3.5 hemoglobin 7.1 platelets [id number] 05/27/2024: White count 3.6 hemoglobin 8.7 [status post 1 unit of PRBC]. Platelets are stable at 36,000 05/28/2024: White count 4.8 hemoglobin 8.5 platelets 41,000 2. History of colon cancer in 1999 [age] and had surgery no adjuvant treatment was stage II 3. Meniere's disease 4. Neuropathy 5. History of thyroidectomy 1984 hypothyroidism and is on thyroid replacement now 6. History of pulmonary sarcoidosis Plan/Recommendation prednisone 20 mg p.o. 3 times daily PC From the hematology point of view the patient is stable enough to be discharged home on prednisone 20 mg p.o. 3 times daily PC Plan discussed with: Patient CC Plasma Assessment Blood Product Administration S: [id number] RITA GARCIA MD May 28, 2024 11:05
[2024-05-29] VITALS (8 sets, daily range): BP systolic 101–120; BP diastolic 56–79; PULSE 90–114; RESP 16–20; TEMP 97.3–98.2; O2SAT 99–100
[2024-05-29 07:06] LABS: Basophils # (auto) 0 10 ^3/uL (0-0.2); Basophils % (auto) 0.3 % (0.0-2.0); Eosinophils # (auto) 0 10 ^3/uL (0-0.8); Hematocrit 26.3 % (41.0-53.0); Hemoglobin 8.5 g/dL (13.5-17.5); Lymphocytes # (auto) 0.4 10 ^3/uL (0.4-5.4); Lymphocytes % (auto) 5.6 % (10.0-50.0); Mean Corpuscular Hemoglobin 29.3 pg (28.0-32.0); Mean Corpuscular Hgb Conc. 32.5 g/dL (32.0-36.0); Mean Corpuscular Volume 90.3 fL (80.0-100.0); Monocytes # (auto) 0.2 10 ^3/uL (0-1.3); Monocytes % (auto) 3.1 % (0.0-12.0); Neutrophils # (auto) 5.7 10 ^3/uL (1.6-8.6); Nucleated Red Blood Cells % 0.7 %; Platelet Count (auto) 34 10^3/uL (140-450); Red Blood Cells 2.91 10^6/uL (4.5-5.90); Red Cell Distribution Width 15.9 % (11.8-14.3); White Blood Cell 6.3 10^3/uL (4.4-10.8)
[2024-05-29 07:12] LABS: Alanine Aminotransferase 34 U/L (7-40); Albumin 3.1 g/dL (3.2-4.8); Alkaline Phosphatase 69 U/L (46-116); Anion Gap 6 (5-15); Aspartate Aminotransferase 20 U/L (13-40); BUN/Creatinine Ratio 33.8 (10.0-20.0); Bilirubin, Total 1.6 mg/dL (0.2-1.0); Blood Urea Nitrogen 22 mg/dL (9-23); Calcium 8.3 mg/dL (8.7-10.4); Carbon Dioxide 27 mmol/L (20-31); Chloride 103 mmol/L (98-107); Glucose 115 mg/dL (74-106); Magnesium 2.2 mg/dL (1.6-2.6); Potassium 3.9 mmol/L (3.5-5.1); Sodium 136 mmol/L (136-145)
[2024-05-29 07:13] LABS: INR 1.1 (0.9-1.15); Partial Thromboplastin Time 23.9 SEC (24.5-34.5); Prothrombin Time 11.6 sec (9.3-11.8)
[2024-05-29] MEDS: cefTRIAXone 1GM/50ML D5W 50 ML IV SCH (10:09)
--- NOTE | 2024-05-29 14:48 | DVHPN2 ---
Subjective Patient is still weak Follow up her blood pressure especially with movement Intermittent tachycardia Unstable to transfer Reviewed: H&P Changes from previous H/P or p: No Changes ENT: Other (Right nostril epistaxis) Cardiovascular: No Chest Pain, No Palpitations, No Orthopnea, No Paroxysmal Noc. Dyspnea, No Edema, No Lt Headedness, No Other Respiratory: No Cough, No Dry, No Shortness of breath, No SOB with excertion, No Wheezing, No Hemoptysis, No Pleuritic Pain, No Sputum, No Other Gastrointestinal: No Nausea, No Vomiting, No Abdominal Pain, No Diarrhea, No Constipation, No Melena, No Hematochezia, No Other Genitourinary: No Dysuria, No Frequency, No Incontinence, No Hematuria, No Retention, No Other Musculoskeletal: No other, No neck pain, No shoulder pain, No arm pain, No back pain, No hand pain, No leg pain, No foot pain Skin: No Rash, No Lesions, No Jaundice, No Bruising, No Other Objective Vitals Vital Signs Date Time Temp Pulse Resp B/P (MAP) Pulse Ox O2 Delivery O2 Flow Rate FiO2 05/29/24 13:00 97.9 105 18 103/66 (78) 100 97.9 05/29/24 08:00 Nasal Cannula* 3 32 Intake/Output Intake and Output 05/29/24 07:00 Intake Total 1300 ml Output Total 1200 ml Balance 100 ml Intake Oral 1250 ml IV Total 50 ml Output Urine Total 1200 ml # Voids 7 General Appearance: Alert, Oriented X3, Cooperative, No acute distress Lungs: Clear to auscultation, Normal air movement Cardiovascular: Regular rate, Normal S1, Normal S2 Abdomen: Normal bowel sounds, Soft, No tenderness Extremities: No edema Medications Current Medications Medications Dose Ordered Sig/Sarah Route Start Time Stop Time Status Last Admin Dose Admin Sodium Chloride 10 ml Q8HR IV 05/24/24 22:00 05/29/24 13:52 10 ML Acetaminophen 325 mg Q4HP PRN PO 05/24/24 21:00 Ondansetron HCl 4 mg Q4HP PRN IV 05/24/24 21:00 Morphine Sulfate 2 mg Q4HPRN PRN IV 05/24/24 21:00 Nitroglycerin 0.4 mg Q5MINP PRN SL 05/24/24 21:00 Morphine Sulfate 2 mg Q30M PRN IV 05/24/24 21:00 Levothyroxine Sodium 125 mcg QAM@0600 PO 05/25/24 06:00 05/29/24 05:36 125 MCG Pregabalin 25 mg BID PO 05/24/24 22:00 05/29/24 10:09 25 MG Sodium Chloride 1 spr QID EACHNOSTRI 05/25/24 18:00 05/29/24 11:25 1 SPR Temazepam 15 mg HSPRN PRN PO 05/25/24 16:30 05/28/24 22:11 15 MG Prednisone 20 mg TID PO 05/27/24 14:00 05/29/24 13:52 20 MG Pantoprazole Sodium 40 mg DAILY@0600 PO 05/28/24 06:00 05/29/24 05:36 40 MG Furosemide 20 mg DAILY PO 05/28/24 10:00 05/29/24 10:08 20 MG Potassium Chloride 10 meq DAILY PO 05/28/24 10:00 05/29/24 10:07 10 MEQ Ceftriaxone Sodium 50 ml @ 100 mls/hr DAILY@09 IV 05/29/24 09:00 05/29/24 10:09 100 MLS/HR Laboratory Results Laboratory Tests 05/29/24 06:30 Chemistry Test 05/29/24 06:30 Albumin 3.1 g/dL (3.2-4.8) L Calcium Level 8.3 mg/dL (8.7-10.4) L Magnesium Level 2.2 mg/dL (1.6-2.6) Total Protein 5.0 g/dL (5.7-8.2) L Coagulation Test 05/29/24 06:30 Prothrombin Time 11.6 sec (9.3-11.8) Prothrombin Time INR 1.10 (0.9-1.15) Activated Partial Thromboplast Time 23.9 SEC (24.5-34.5) L LFT Test 05/29/24 06:30 Alanine Aminotransferase (ALT) 34 U/L (7-40) Alkaline Phosphatase 69 U/L (46-116) Aspartate Amino Transferase (AST) 20 U/L (13-40) Total Bilirubin 1.6 mg/dL (0.2-1.0) H Urinalysis Test 05/25/24 00:09 Urine Color Light-yellow (Yellow) Urine Clarity Clear (Clear) Urine pH 7.0 (5.0-9.0) Urine Specific [place] 1.013 (1.001-1.035) Urine Protein 1+ (Negative) H Urine Ketones Negative (Negative) Urine Blood Trace /uL (Negative) H Urine Nitrite 2+ (Negative) H Urine Bilirubin Negative (Negative) Urine Urobilinogen Normal mg/dL (Negative) Urine Leukocyte Esterase 3+ /uL (Negative) Urine RBC 5 /hpf (0 - 3) Urine WBC 40 /hpf (0 - 3) Urine WBC Clumps Present /hpf (None Seen) Urine Squamous Epithelial Cells None seen /hpf (<5) Urine Bacteria Few /hpf (None Seen) H Urine Glucose Normal mg/dL (Normal) Labs and/or images reviewed: Labs reviewed by me, Image(s) reviewed by me Assessment/Plan Assessment/Plan Anemia requiring blood transfusion Thrombocytopenia Metastatic melanoma on immunotherapy Pulmonary sarcoidosis Hypothyroidism Chronic respiratory failure History of colon cancer Acute on chronic diastolic heart failure Status post blood transfusion Continue prednisone for thrombocytopenia Continue oxygen supplementation Continue with antibiotic Resume home medication DVT prophylaxis SCD Plan discussed with: Patient Date of Service: May 29, 2024 Billing Provider: ERIK TRACY MD Common Visit Codes: [id number] INP/OBS CARE(HIGH) ERIK TRACY MD May 29, 2024 14:48
[2024-05-30] VITALS (8 sets, daily range): BP systolic 101–130; BP diastolic 59–66; PULSE 74–117; RESP 17–20; TEMP 97.5–98.8; O2SAT 94–100
[2024-05-30 07:30] LABS: Chloride 103 mmol/L (98-107); Potassium 4.1 mmol/L (3.5-5.1); Sodium 135 mmol/L (136-145)
[2024-05-30 07:31] LABS: Anion Gap 5 (5-15); Calcium 8.1 mg/dL (8.7-10.4); Carbon Dioxide 27 mmol/L (20-31)
[2024-05-30 07:33] LABS: Basophils # (auto) 0 10 ^3/uL (0-0.2); Eosinophils # (auto) 0 10 ^3/uL (0-0.8); Monocytes # (auto) 0.1 10 ^3/uL (0-1.3)
[2024-05-30 07:36] LABS: Basophils % (auto) 0.2 % (0.0-2.0); Blood Urea Nitrogen 21 mg/dL (9-23); Glucose 119 mg/dL (74-106); Hematocrit 25.1 % (41.0-53.0); Lymphocytes # (auto) 0.2 10 ^3/uL (0.4-5.4); Lymphocytes % (auto) 3.8 % (10.0-50.0); Mean Corpuscular Hemoglobin 28.6 pg (28.0-32.0); Mean Corpuscular Hgb Conc. 31.7 g/dL (32.0-36.0); Mean Corpuscular Volume 90.3 fL (80.0-100.0); Monocytes % (auto) 2.1 % (0.0-12.0); Neutrophils # (auto) 5.9 10 ^3/uL (1.6-8.6); Neutrophils % (auto) 93.9 % (37.0-80.0); Nucleated Red Blood Cells % 2.1 %; Platelet Count (auto) 29 10^3/uL (140-450); Red Blood Cells 2.78 10^6/uL (4.5-5.90); Red Cell Distribution Width 15.6 % (11.8-14.3); White Blood Cell 6.2 10^3/uL (4.4-10.8)
--- NOTE | 2024-05-30 12:56 | DVHPN2 ---
Subjective Patient is still weak Follow up her blood pressure especially with movement Intermittent tachycardia Unstable to transfer Reviewed: H&P ENT: Other (Right nostril epistaxis) Cardiovascular: No Chest Pain, No Palpitations, No Orthopnea, No Paroxysmal Noc. Dyspnea, No Edema, No Lt Headedness, No Other Respiratory: No Cough, No Dry, No Shortness of breath, No SOB with excertion, No Wheezing, No Hemoptysis, No Pleuritic Pain, No Sputum, No Other Gastrointestinal: No Nausea, No Vomiting, No Abdominal Pain, No Diarrhea, No Constipation, No Melena, No Hematochezia, No Other Genitourinary: No Dysuria, No Frequency, No Incontinence, No Hematuria, No Retention, No Other Musculoskeletal: No other, No neck pain, No shoulder pain, No arm pain, No back pain, No hand pain, No leg pain, No foot pain Skin: No Rash, No Lesions, No Jaundice, No Bruising, No Other Objective Vitals Vital Signs Date Time Temp Pulse Resp B/P (MAP) Pulse Ox O2 Delivery O2 Flow Rate FiO2 05/30/24 09:42 97.6 108 19 105/63 (77) 98 97.6 05/30/24 08:00 Nasal Cannula* 3 32 Intake/Output Intake and Output 05/30/24 07:00 Intake Total 1250 ml Output Total 1000 ml Balance 250 ml Intake Oral 1200 ml IV Total 50 ml Output Urine Total 1000 ml # Voids 2 # Bowel Movements 2 General Appearance: Alert, Oriented X3, Cooperative, No acute distress Lungs: Clear to auscultation, Normal air movement Cardiovascular: Regular rate, Normal S1, Normal S2 Abdomen: Normal bowel sounds, Soft, No tenderness Extremities: No edema Medications Current Medications Medications Dose Ordered Sig/Sarah Route Start Time Stop Time Status Last Admin Dose Admin Sodium Chloride 10 ml Q8HR IV 05/24/24 22:00 05/30/24 04:59 10 ML Acetaminophen 325 mg Q4HP PRN PO 05/24/24 21:00 Ondansetron HCl 4 mg Q4HP PRN IV 05/24/24 21:00 Morphine Sulfate 2 mg Q4HPRN PRN IV 05/24/24 21:00 Nitroglycerin 0.4 mg Q5MINP PRN SL 05/24/24 21:00 Morphine Sulfate 2 mg Q30M PRN IV 05/24/24 21:00 Levothyroxine Sodium 125 mcg QAM@0600 PO 05/25/24 06:00 05/30/24 04:58 125 MCG Pregabalin 25 mg BID PO 05/24/24 22:00 05/30/24 09:04 25 MG Sodium Chloride 1 spr QID EACHNOSTRI 05/25/24 18:00 05/30/24 04:59 1 SPR Temazepam 15 mg HSPRN PRN PO 05/25/24 16:30 05/29/24 21:55 15 MG Prednisone 20 mg TID PO 05/27/24 14:00 05/30/24 04:59 20 MG Pantoprazole Sodium 40 mg DAILY@0600 PO 05/28/24 06:00 05/30/24 04:58 40 MG Furosemide 20 mg DAILY PO 05/28/24 10:00 05/30/24 09:04 20 MG Potassium Chloride 10 meq DAILY PO 05/28/24 10:00 05/30/24 09:03 10 MEQ Ceftriaxone Sodium 50 ml @ 100 mls/hr DAILY@09 IV 05/29/24 09:00 05/30/24 08:57 100 MLS/HR Laboratory Results Laboratory Tests 05/30/24 06:27 Chemistry Test 05/30/24 06:27 Calcium Level 8.1 mg/dL (8.7-10.4) L Urinalysis Test 05/25/24 00:09 Urine Color Light-yellow (Yellow) Urine Clarity Clear (Clear) Urine pH 7.0 (5.0-9.0) Urine Specific [place] 1.013 (1.001-1.035) Urine Protein 1+ (Negative) H Urine Ketones Negative (Negative) Urine Blood Trace /uL (Negative) H Urine Nitrite 2+ (Negative) H Urine Bilirubin Negative (Negative) Urine Urobilinogen Normal mg/dL (Negative) Urine Leukocyte Esterase 3+ /uL (Negative) Urine RBC 5 /hpf (0 - 3) Urine WBC 40 /hpf (0 - 3) Urine WBC Clumps Present /hpf (None Seen) Urine Squamous Epithelial Cells None seen /hpf (<5) Urine Bacteria Few /hpf (None Seen) H Urine Glucose Normal mg/dL (Normal) Assessment/Plan Assessment/Plan Anemia requiring blood transfusion Thrombocytopenia Metastatic melanoma on immunotherapy Pulmonary sarcoidosis Hypothyroidism Chronic respiratory failure History of colon cancer Acute on chronic diastolic heart failure Status post blood transfusion Continue prednisone for thrombocytopenia Continue oxygen supplementation Continue with antibiotic Resume home medication DVT prophylaxis SCD ERIK TRACY MD May 30, 2024 12:56
--- NOTE | 2024-05-30 14:55 | DVHPN2 ---
Subjective Patient is still weak Follow up her blood pressure especially with movement Intermittent tachycardia Worsening thrombocytopenia Unstable to transfer More than 30 minutes spent in advanced care planning, including discussing code status, medical decision maker, goals of care and disposition planning. After discussion patient would like to discuss further with family prior to making his decisions Reviewed: H&P Changes from previous H/P or p: No Changes ENT: Other (Right nostril epistaxis) Cardiovascular: No Chest Pain, No Palpitations, No Orthopnea, No Paroxysmal Noc. Dyspnea, No Edema, No Lt Headedness, No Other Respiratory: No Cough, No Dry, No Shortness of breath, No SOB with excertion, No Wheezing, No Hemoptysis, No Pleuritic Pain, No Sputum, No Other Gastrointestinal: No Nausea, No Vomiting, No Abdominal Pain, No Diarrhea, No Constipation, No Melena, No Hematochezia, No Other Genitourinary: No Dysuria, No Frequency, No Incontinence, No Hematuria, No Retention, No Other Musculoskeletal: No other, No neck pain, No shoulder pain, No arm pain, No back pain, No hand pain, No leg pain, No foot pain Skin: No Rash, No Lesions, No Jaundice, No Bruising, No Other Objective Vitals Vital Signs Date Time Temp Pulse Resp B/P (MAP) Pulse Ox O2 Delivery O2 Flow Rate FiO2 05/30/24 14:28 97.9 111 18 108/64 (79) 100 97.9 05/30/24 08:00 Nasal Cannula* 3 32 Intake/Output Intake and Output 05/30/24 07:00 Intake Total 1250 ml Output Total 1000 ml Balance 250 ml Intake Oral 1200 ml IV Total 50 ml Output Urine Total 1000 ml # Voids 2 # Bowel Movements 2 General Appearance: Alert, Oriented X3, Cooperative, No acute distress Lungs: Clear to auscultation, Normal air movement Cardiovascular: Regular rate, Normal S1, Normal S2 Abdomen: Normal bowel sounds, Soft, No tenderness Extremities: No edema Medications Current Medications Medications Dose Ordered Sig/Sarah Route Start Time Stop Time Status Last Admin Dose Admin Sodium Chloride 10 ml Q8HR IV 05/24/24 22:00 05/30/24 13:39 10 ML Acetaminophen 325 mg Q4HP PRN PO 05/24/24 21:00 Ondansetron HCl 4 mg Q4HP PRN IV 05/24/24 21:00 Morphine Sulfate 2 mg Q4HPRN PRN IV 05/24/24 21:00 Nitroglycerin 0.4 mg Q5MINP PRN SL 05/24/24 21:00 Morphine Sulfate 2 mg Q30M PRN IV 05/24/24 21:00 Levothyroxine Sodium 125 mcg QAM@0600 PO 05/25/24 06:00 05/30/24 04:58 125 MCG Pregabalin 25 mg BID PO 05/24/24 22:00 05/30/24 09:04 25 MG Sodium Chloride 1 spr QID EACHNOSTRI 05/25/24 18:00 05/30/24 12:00 1 SPR Temazepam 15 mg HSPRN PRN PO 05/25/24 16:30 05/29/24 21:55 15 MG Prednisone 20 mg TID PO 05/27/24 14:00 05/30/24 13:39 20 MG Pantoprazole Sodium 40 mg DAILY@0600 PO 05/28/24 06:00 05/30/24 04:58 40 MG Furosemide 20 mg DAILY PO 05/28/24 10:00 05/30/24 09:04 20 MG Potassium Chloride 10 meq DAILY PO 05/28/24 10:00 05/30/24 09:03 10 MEQ Ceftriaxone Sodium 50 ml @ 100 mls/hr DAILY@09 IV 05/29/24 09:00 05/30/24 08:57 100 MLS/HR Laboratory Results Laboratory Tests 05/30/24 06:27 Chemistry Test 05/30/24 06:27 Calcium Level 8.1 mg/dL (8.7-10.4) L Urinalysis Test 05/25/24 00:09 Urine Color Light-yellow (Yellow) Urine Clarity Clear (Clear) Urine pH 7.0 (5.0-9.0) Urine Specific [place] 1.013 (1.001-1.035) Urine Protein 1+ (Negative) H Urine Ketones Negative (Negative) Urine Blood Trace /uL (Negative) H Urine Nitrite 2+ (Negative) H Urine Bilirubin Negative (Negative) Urine Urobilinogen Normal mg/dL (Negative) Urine Leukocyte Esterase 3+ /uL (Negative) Urine RBC 5 /hpf (0 - 3) Urine WBC 40 /hpf (0 - 3) Urine WBC Clumps Present /hpf (None Seen) Urine Squamous Epithelial Cells None seen /hpf (<5) Urine Bacteria Few /hpf (None Seen) H Urine Glucose Normal mg/dL (Normal) Labs and/or images reviewed: Labs reviewed by me, Image(s) reviewed by me Assessment/Plan Assessment/Plan Anemia requiring blood transfusion Thrombocytopenia Metastatic melanoma on immunotherapy Pulmonary sarcoidosis Hypothyroidism Chronic respiratory failure History of colon cancer Acute on chronic diastolic heart failure Status post blood transfusion Continue prednisone for thrombocytopenia Continue oxygen supplementation Continue with antibiotic Resume home medication DVT prophylaxis SCD Plan discussed with: Patient Date of Service: May 30, 2024 Billing Provider: ERIK TRACY MD Common Visit Codes: [id number] INP/OBS CARE(HIGH) Secondary Visit Codes: [id number] CARE PLAN 30 MINUTES ERIK TRACY MD May 30, 2024 14:55
[2024-05-31] VITALS (8 sets, daily range): BP systolic 102–124; BP diastolic 57–75; PULSE 94–117; RESP 16–20; TEMP 97.5–98.3; O2SAT 94–100
[2024-05-31 10:33] LABS: Basophils # (auto) 0 10 ^3/uL (0-0.2); Eosinophils # (auto) 0 10 ^3/uL (0-0.8); Hematocrit 26.1 % (41.0-53.0); Hemoglobin 8.6 g/dL (13.5-17.5); Mean Corpuscular Hgb Conc. 32.8 g/dL (32.0-36.0); Monocytes # (auto) 0.1 10 ^3/uL (0-1.3); Neutrophils % (auto) 91.6 % (37.0-80.0)
[2024-05-31 10:35] LABS: Basophils % (auto) 0.3 % (0.0-2.0); Lymphocytes # (auto) 0.3 10 ^3/uL (0.4-5.4); Lymphocytes % (auto) 6.3 % (10.0-50.0); Mean Corpuscular Hemoglobin 29.5 pg (28.0-32.0); Mean Corpuscular Volume 89.9 fL (80.0-100.0); Monocytes % (auto) 1.8 % (0.0-12.0); Neutrophils # (auto) 3.7 10 ^3/uL (1.6-8.6); Nucleated Red Blood Cells % 2.8 %; Red Cell Distribution Width 16.4 % (11.8-14.3)
[2024-05-31 10:41] LABS: Platelet Count (auto) 18 10^3/uL (140-450)
[2024-05-31 10:43] LABS: Chloride 102 mmol/L (98-107); Potassium 4.5 mmol/L (3.5-5.1); Sodium 134 mmol/L (136-145)
[2024-05-31 10:44] LABS: Anion Gap 3 (5-15); Calcium 8.3 mg/dL (8.7-10.4); Carbon Dioxide 29 mmol/L (20-31)
[2024-05-31 10:49] LABS: BUN/Creatinine Ratio 28.9 (10.0-20.0); Blood Urea Nitrogen 22 mg/dL (9-23)
[2024-05-31 11:02] LABS: Glucose 223 mg/dL (74-106)
[2024-05-31] MEDS: POLYETHYLENE GLYCOL 17 GM PWDR PO ONE (11:05)
--- NOTE | 2024-05-31 18:21 | DVHPN2 ---
Subjective Patient is still weak Follow up her blood pressure especially with movement Intermittent tachycardia Worsening thrombocytopenia Unstable to transfer Patient is seen today during rounds Discussed with heme/onc dr Fisher to decrease prednisone to 20 BID, platelets seems to not respond. No active bleeding. Patient will benefit from transfer once stabilized. I believe patient will benefit from palliative care evaluation. Reviewed: H&P Changes from previous H/P or p: No Changes ENT: Other (Right nostril epistaxis) Cardiovascular: No Chest Pain, No Palpitations, No Orthopnea, No Paroxysmal Noc. Dyspnea, No Edema, No Lt Headedness, No Other Respiratory: No Cough, No Dry, No Shortness of breath, No SOB with excertion, No Wheezing, No Hemoptysis, No Pleuritic Pain, No Sputum, No Other Gastrointestinal: No Nausea, No Vomiting, No Abdominal Pain, No Diarrhea, No Constipation, No Melena, No Hematochezia, No Other Genitourinary: No Dysuria, No Frequency, No Incontinence, No Hematuria, No Retention, No Other Musculoskeletal: No other, No neck pain, No shoulder pain, No arm pain, No back pain, No hand pain, No leg pain, No foot pain Skin: No Rash, No Lesions, No Jaundice, No Bruising, No Other Objective Vitals Vital Signs Date Time Temp Pulse Resp B/P (MAP) Pulse Ox O2 Delivery O2 Flow Rate FiO2 05/31/24 17:00 97.6 109 19 122/71 (88) 97 97.6 05/31/24 08:00 Nasal Cannula* 3 32 Intake/Output Intake and Output 05/31/24 07:00 Intake Total 1325 ml Output Total 1100 ml Balance 225 ml Intake Oral 1275 ml IV Total 50 ml Output Urine Total 1100 ml # Bowel Movements 1 General Appearance: Alert, Oriented X3, Cooperative, No acute distress Lungs: Clear to auscultation, Normal air movement Cardiovascular: Regular rate, Normal S1, Normal S2 Abdomen: Normal bowel sounds, Soft, No tenderness Extremities: No edema Medications Current Medications Medications Dose Ordered Sig/Sarah Route Start Time Stop Time Status Last Admin Dose Admin Sodium Chloride 10 ml Q8HR IV 05/24/24 22:00 05/31/24 05:58 10 ML Acetaminophen 325 mg Q4HP PRN PO 05/24/24 21:00 Ondansetron HCl 4 mg Q4HP PRN IV 05/24/24 21:00 Morphine Sulfate 2 mg Q4HPRN PRN IV 05/24/24 21:00 Nitroglycerin 0.4 mg Q5MINP PRN SL 05/24/24 21:00 Morphine Sulfate 2 mg Q30M PRN IV 05/24/24 21:00 Levothyroxine Sodium 125 mcg QAM@0600 PO 05/25/24 06:00 05/31/24 06:18 125 MCG Pregabalin 25 mg BID PO 05/24/24 22:00 05/31/24 09:01 25 MG Sodium Chloride 1 spr QID EACHNOSTRI 05/25/24 18:00 05/31/24 11:05 1 SPR Temazepam 15 mg HSPRN PRN PO 05/25/24 16:30 05/30/24 21:39 15 MG Prednisone 20 mg TID PO 05/27/24 14:00 05/31/24 13:18 20 MG Pantoprazole Sodium 40 mg DAILY@0600 PO 05/28/24 06:00 05/31/24 06:19 40 MG Furosemide 20 mg DAILY PO 05/28/24 10:00 05/31/24 09:06 20 MG Potassium Chloride 10 meq DAILY PO 05/28/24 10:00 05/31/24 09:00 10 MEQ Ceftriaxone Sodium 50 ml @ 100 mls/hr DAILY@09 IV 05/29/24 09:00 05/31/24 09:00 100 MLS/HR Laboratory Results Laboratory Tests 05/31/24 10:02 Chemistry Test 05/31/24 10:02 Calcium Level 8.3 mg/dL (8.7-10.4) L Urinalysis Test 05/25/24 00:09 Urine Color Light-yellow (Yellow) Urine Clarity Clear (Clear) Urine pH 7.0 (5.0-9.0) Urine Specific [place] 1.013 (1.001-1.035) Urine Protein 1+ (Negative) H Urine Ketones Negative (Negative) Urine Blood Trace /uL (Negative) H Urine Nitrite 2+ (Negative) H Urine Bilirubin Negative (Negative) Urine Urobilinogen Normal mg/dL (Negative) Urine Leukocyte Esterase 3+ /uL (Negative) Urine RBC 5 /hpf (0 - 3) Urine WBC 40 /hpf (0 - 3) Urine WBC Clumps Present /hpf (None Seen) Urine Squamous Epithelial Cells None seen /hpf (<5) Urine Bacteria Few /hpf (None Seen) H Urine Glucose Normal mg/dL (Normal) Assessment/Plan Assessment/Plan Anemia requiring blood transfusion Thrombocytopenia Metastatic melanoma on immunotherapy Pulmonary sarcoidosis Hypothyroidism Chronic respiratory failure History of colon cancer Acute on chronic diastolic heart failure Status post blood transfusion Continue prednisone for thrombocytopenia Continue oxygen supplementation Continue with antibiotic Resume home medication palliative consult switch NC to venturi with compressed air and humidifier patient will benefit from ENT eval once more stable c/w PT DVT prophylaxis SCD Plan discussed with: Patient Date of Service: May 31, 2024 Billing Provider: ERIK TRACY MD Common Visit Codes: [id number] INP/OBS CARE(HIGH) ERIK TRACY MD May 31, 2024 18:21
[2024-05-31] MEDS: predniSONE 20 MG TAB PO SCH (21:29)
[2024-06-01] VITALS (9 sets, daily range): BP systolic 99–127; BP diastolic 60–79; PULSE 98–121; RESP 16–18; TEMP 97.5–98; O2SAT 95–100
[2024-06-01 03:58] LABS: Basophils # (auto) 0 10 ^3/uL (0-0.2); Eosinophils # (auto) 0 10 ^3/uL (0-0.8); Hemoglobin 8.7 g/dL (13.5-17.5); Lymphocytes # (auto) 0.3 10 ^3/uL (0.4-5.4); Neutrophils # (auto) 3.2 10 ^3/uL (1.6-8.6); White Blood Cell 3.6 10^3/uL (4.4-10.8)
[2024-06-01 03:59] LABS: Basophils % (auto) 0.5 % (0.0-2.0); Hematocrit 26.3 % (41.0-53.0); Lymphocytes % (auto) 7.4 % (10.0-50.0); Mean Corpuscular Hemoglobin 29.6 pg (28.0-32.0); Mean Corpuscular Volume 89.9 fL (80.0-100.0); Monocytes # (auto) 0 10 ^3/uL (0-1.3); Monocytes % (auto) 1.4 % (0.0-12.0); Neutrophils % (auto) 90.7 % (37.0-80.0); Nucleated Red Blood Cells % 2.7 %; Red Blood Cells 2.92 10^6/uL (4.5-5.90); Red Cell Distribution Width 16.1 % (11.8-14.3)
[2024-06-01 05:15] LABS: Platelet Count (auto) 16 10^3/uL (140-450)
[2024-06-01 05:16] LABS: Platelet Estimate Markedly Decreased
--- NOTE | 2024-06-01 14:55 | DVHPN2 ---
Subjective Complains of weakness No more bleeding No epistaxis He feels his nostrils are clogged with blood clots Platelets today are 16 with a hemoglobin of 8.7 and white count of 3.6 Reviewed: H&P Changes from previous H/P or p: Changes ENT: Other (Right nostril epistaxis) Cardiovascular: No Chest Pain, No Palpitations, No Orthopnea, No Paroxysmal Noc. Dyspnea, No Edema, No Lt Headedness, No Other Respiratory: No Cough, No Dry, No Shortness of breath, No SOB with excertion, No Wheezing, No Hemoptysis, No Pleuritic Pain, No Sputum, No Other Gastrointestinal: No Nausea, No Vomiting, No Abdominal Pain, No Diarrhea, No Constipation, No Melena, No Hematochezia, No Other Genitourinary: No Dysuria, No Frequency, No Incontinence, No Hematuria, No Retention, No Other Musculoskeletal: No other, No neck pain, No shoulder pain, No arm pain, No back pain, No hand pain, No leg pain, No foot pain Skin: No Rash, No Lesions, No Jaundice, No Bruising, No Other Objective Vitals Vital Signs Date Time Temp Pulse Resp B/P (MAP) Pulse Ox O2 Delivery O2 Flow Rate FiO2 06/01/24 13:58 106/60 06/01/24 13:00 98.0 110 18 100 98.0 06/01/24 08:05 Nasal Cannula* 3 32 Intake/Output Intake and Output 06/01/24 07:00 Intake Total 1435 ml Output Total 1625 ml Balance -190 ml Intake Oral 1435 ml Output Urine Total 1625 ml General Appearance: Alert, Oriented X3, Cooperative, No acute distress Lungs: Clear to auscultation, Normal air movement Cardiovascular: Regular rate, Normal S1, Normal S2 Abdomen: Normal bowel sounds, Soft, No tenderness Extremities: No edema Medications Current Medications Medications Dose Ordered Sig/Sarah Route Start Time Stop Time Status Last Admin Dose Admin Sodium Chloride 10 ml Q8HR IV 05/24/24 22:00 06/01/24 13:58 10 ML Acetaminophen 325 mg Q4HP PRN PO 05/24/24 21:00 Ondansetron HCl 4 mg Q4HP PRN IV 05/24/24 21:00 Morphine Sulfate 2 mg Q4HPRN PRN IV 05/24/24 21:00 Nitroglycerin 0.4 mg Q5MINP PRN SL 05/24/24 21:00 Morphine Sulfate 2 mg Q30M PRN IV 05/24/24 21:00 Levothyroxine Sodium 125 mcg QAM@0600 PO 05/25/24 06:00 06/01/24 06:35 125 MCG Pregabalin 25 mg BID PO 05/24/24 22:00 06/01/24 09:05 25 MG Sodium Chloride 1 spr QID EACHNOSTRI 05/25/24 18:00 06/01/24 12:18 1 SPR Temazepam 15 mg HSPRN PRN PO 05/25/24 16:30 05/31/24 22:11 15 MG Pantoprazole Sodium 40 mg DAILY@0600 PO 05/28/24 06:00 06/01/24 06:34 40 MG Furosemide 20 mg DAILY PO 05/28/24 10:00 06/01/24 13:58 20 MG Potassium Chloride 10 meq DAILY PO 05/28/24 10:00 06/01/24 13:56 10 MEQ Ceftriaxone Sodium 50 ml @ 100 mls/hr DAILY@09 IV 05/29/24 09:00 06/01/24 09:19 100 MLS/HR Prednisone 20 mg BID PO 05/31/24 22:00 06/01/24 09:05 20 MG Laboratory Results Laboratory Tests 05/31/24 10:02 06/01/24 03:22 Urinalysis Test 05/25/24 00:09 Urine Color Light-yellow (Yellow) Urine Clarity Clear (Clear) Urine pH 7.0 (5.0-9.0) Urine Specific [place] 1.013 (1.001-1.035) Urine Protein 1+ (Negative) H Urine Ketones Negative (Negative) Urine Blood Trace /uL (Negative) H Urine Nitrite 2+ (Negative) H Urine Bilirubin Negative (Negative) Urine Urobilinogen Normal mg/dL (Negative) Urine Leukocyte Esterase 3+ /uL (Negative) Urine RBC 5 /hpf (0 - 3) Urine WBC 40 /hpf (0 - 3) Urine WBC Clumps Present /hpf (None Seen) Urine Squamous Epithelial Cells None seen /hpf (<5) Urine Bacteria Few /hpf (None Seen) H Urine Glucose Normal mg/dL (Normal) Assessment/Plan Assessment/Plan #1 Severe anemia, status post transfusion, hemoglobin stable at 8.5 now #2 Thrombocytopenia: steroids, platelets 41 now, continue steroids #3 Metastatic melanoma, status post immunotherapy. Has an appointment at [facility] tomorrow #4 Pulmonary sarcoidosis. #5 Hypothyroidism. #6 Hypertension. Hypotensive now #7 Acute respiratory failure. Stable #8 h/o colon cancer #9 acute diastolic heart failure: Continue lasix iv 05/28/2024: Patient is very weak, he is not able to stand up or sit up without significant assistance His blood pressure is still borderline low Platelets are at 41 also low Plan is to continue steroids Start Rocephin IV for the UTI Continue Lasix 20 mg daily The patient is not stable to be discharged to SNF yet Not stable to transfer due to hypotension and borderline platelet count unstable for transfer Discussed with the at the bedside 06/01/2024: Thrombocytopenia: Platelets are 16 today down from 18 yesterday Anemia: Hemoglobin 8.7 Metastatic melanoma Pulmonary sarcoidosis Hypothyroidism Hypotension History of colon cancer Patient is stable for transfer to [place] Discussed the care plan with him with the presence of the and son at the bedside, they would like to be evaluated for further options for his thrombocytopenia and continue to get treated for his cancer Even though patient is not having any bleeding at this time however his platelet counts are too low to send him home and he has been on steroids but it does not look he is responding We will continue transient fusion of platelets as needed Transfer the patient to [facility] because he has an oncologist there who sees regularly and to be in network and son are in agreement Plan discussed with: Patient, Spouse, Son Date of Service: Jun 01, 2024 Billing Provider: RUSTAM KAT MD Common Visit Codes: [id number] INP/OBS CARE(HIGH) RUSTAM KAT MD Jun 01, 2024 14:55
== END 2024-06-01 20:11 | disposition short-term general hospital (02) | DRG 813 ==
LOC: EDBD 11:54 → ER 11:54 → EDUNIT# 11:54 → TELE 21:00 → TELE-WESTW 05-25 09:10
PROVIDERS: ATTEND Internal Medicine Geriatric Medicine
PROC: 30233N1 Transfusion of Nonautologous Red Blood Cells into Peripheral Vein, Percutaneous Approach (ICD-10-PCS; principal; 2024-05-24)
PROC: 30233R1 Transfusion of Nonautologous Platelets into Peripheral Vein, Percutaneous Approach (ICD-10-PCS; 2024-05-25)
DX: D69.59 Other secondary thrombocytopenia (principal); I50.31 Acute diastolic (congestive) heart failure; J18.9 Pneumonia, unspecified organism; J96.00 Acute respiratory failure, unspecified whether with hypoxia or hypercapnia; D62 Acute posthemorrhagic anemia; N39.0 Urinary tract infection, site not specified; C43.9 Malignant melanoma of skin, unspecified; D86.0 Sarcoidosis of lung; H81.09 Meniere's disease, unspecified ear; G62.9 Polyneuropathy, unspecified; E03.9 Hypothyroidism, unspecified; I11.0 Hypertensive heart disease with heart failure; Z88.5 Allergy status to narcotic agent; Z85.038 Personal history of other malignant neoplasm of large intestine; Z82.49 Family history of ischemic heart disease and other diseases of the circulatory system; Z82.5 Family history of asthma and other chronic lower respiratory diseases; Z79.899 Other long term (current) drug therapy; T45.1X5A Adverse effect of antineoplastic and immunosuppressive drugs, initial encounter; Y92.89 Other specified places as the place of occurrence of the external cause
CPT/HCPCS: 36415; 71045; 80048; 80053; 80307; 81001; 82306; 82607; 83735; 84439; 84443; 84481; 85007; 85025; 85027; 85610; 85730; 86850; 86900; 86901; 86920; 97110; 97116; 97163; 97530; 99291; G0378; J2470